=== PATIENT | female | born 1935 | race Caucasian/White ===

== ENCOUNTER 2017-05-24 14:51 | Emergency (ER) | payer MEDICARE, OTHER ==
[2017-05-24 14:59] VITALS: BP 119/93
--- NOTE | 2017-05-24 16:07 | EDM.PDOC ---
ED HPI GENERAL MEDICAL PROBLEM - General Chief Complaint: Lower Extremity Injury/Pain Stated Complaint: FALL VIA NORTH Time Seen by Provider: 05/24/17 14:55 Source of Information: Reports: Patient History Limitations: Reports: No Limitations - History of Present Illness INITIAL COMMENTS - FREE TEXT/NARRATIVE: prt arrived after she fell and twisted her ankle. She did develop increased swellin on the lateral aspect of the rt ankle. She was not able to bear weight on the leg. She has a known history of [place]. She has tightness and pain in the hip and thigh area but that is chronic. Onset: Today Duration: Hour(s): Location: Reports: Lower Extremity, Right Associated Symptoms: Reports: Other (pt normally has tighting and muscle pain) Right Ankle Pain Score (Numeric/FACES): 5 - Related Data Allergies Allergy/AdvReac Type Severity Reaction Status Date / Time cortisone Allergy Rash Verified 05/24/17 14:55 Home Meds: Home Meds Carbidopa/Levodopa [Carbidopa-Levodopa 25-100] 1 tab PO TIDMEALS 10/22/15 [ History] clonazePAM [Clonazepam] 0.5 mg PO BEDTIME 10/22/15 [History] clonazePAM [Clonazepam] 1 mg PO QAM 10/22/15 [History] Past Medical History HEENT History: Reports: Cataract, Impaired Vision Respiratory History: Reports: Pneumonia, Recurrent Other Respiratory History: pleuracy Musculoskeletal History: Reports: Fracture Neurological History: Reports: Parkinson's Other Neuro History: GBS Psychiatric History: Reports: Anxiety Hematologic History: Reports: Blood Transfusion(s) Immunologic History: Reports: Other (See Below) 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 - Past Surgical History HEENT Surgical History: Reports: Cataract Surgery GI Surgical History: Reports: Appendectomy Female Surgical History: Reports: Oophorectomy, Salpingo-Oophorectomy Social & Family History - Tobacco Use Smoking Status *Q: Never Smoker - Recreational Drug Use Recreational Drug Use: No Review of Systems - Review of Systems Review Of Systems: See Below Constitutional: Reports: No Symptoms Eyes: Reports: No Symptoms Ears: Reports: No Symptoms Nose: Reports: No Symptoms Mouth/Throat: Reports: No Symptoms Respiratory: Reports: No Symptoms Cardiovascular: Reports: No Symptoms GI/Abdominal: Reports: No Symptoms Musculoskeletal: Reports: Other ( pain in the rt ankle with swelling. ) Skin: Reports: No Symptoms Neurological: Reports: No Symptoms ED EXAM, GENERAL - Physical Exam Exam: See Below Free Text/Narrative:: Pt has swelling and discomfort in rt ankle and in the rt thigh area. Exam Limited By: No Limitations General Appearance: Alert, Anxious Ears: Normal TMs Nose: Normal Inspection Throat/Mouth: Normal Inspection Head: Atraumatic Neck: Normal Inspection Respiratory/Chest: No Respiratory Distress Cardiovascular: Regular Rate, Rhythm GI/Abdominal: Soft, Non-Tender Extremities: Other ( rt ankle was swollen laterally and tender, She is complaining of pain in the thigh muscles. She has no swelling She is not real uncomfortable when the hip was moved. will plan to xray the hip and femur just to be sure. ) Neurological: Alert, Oriented, Normal Cognition Psychiatric: Depressed Mood Course - Vital Signs Last Recorded V/S: Last Vital Signs Temp 36.6 C 05/24/17 14:52 Pulse 77 05/24/17 14:52 Resp 16 05/24/17 14:52 BP 119/93 H 05/24/17 14:52 Pulse Ox 97 05/24/17 14:52 - Re-Assessments/Exams Free Text/Narrative Re-Assessment/Exam: 05/24/17 17:57 xray of the ankle shows a possible chip fracture off of the fibula. 05/24/17 17:58 pt was having trouble lifting her rt leg once the ankle splint was applied. Her hip was checked and it did not seem real uncomfortable. If she continues to have problems will xray further. She will have a ortho appt the first part of the week. Xrays were ordered before she left but in the bussiness of the day they did not get done prior to her leaving. She does have followup appt with ortho on Thursday so will recheck then. This happened close to shift change. I did try to call but they had not gotten home yet. 05/26/17 07:11 05/26/17 07:20 Departure - Departure Time of Disposition: 16:03 Disposition: Home, Self-Care 01 Condition: Fair Clinical Impression: Muscle strain of right thigh Right ankle sprain Qualifiers: Encounter type: initial encounter - Discharge Information Instructions: Ankle Sprain, [id number] Referrals: Carlos A Tuttle MD [Primary Care Provider] - Forms: ED Department Discharge Care Plan Goals: stirup splint, pt will use her own walker, follow up with ortho-- posible small chip off the fibula. norco 5/325 11/03-- to 1 tab as needed for pain.
--- NOTE | 2017-05-25 11:39 | CR ---
Right ankle There is lateral soft tissue swelling. There is a linear bone fragment adjacent to the tip of the fi bula which may reflect an avulsion fracture. The ankle mortise appears intact. Impression: 1. Lateral soft tissue swelling without evidence of avulsion fracture of the distal fibula.
== END 2017-05-24 16:59 | disposition home or self-care (01) ==
LOC: JP.ED 14:51
DX: S76.911A Strain of unspecified muscles, fascia and tendons at thigh level, right thigh, initial encounter (principal); S93.401A Sprain of unspecified ligament of right ankle, initial encounter; G61.0 Guillain-Barre syndrome; G20 Parkinson's disease; Z79.899 Other long term (current) drug therapy; Z87.01 Personal history of pneumonia (recurrent); Z98.49 Cataract extraction status, unspecified eye; Z90.89 Acquired absence of other organs; Z90.721 Acquired absence of ovaries, unilateral; Z88.8 Allergy status to other drugs, medicaments and biological substances; X50.1XXA Overexertion from prolonged static or awkward postures, initial encounter; Y93.9 Activity, unspecified
CPT/HCPCS: 73610-26-RT; 73610-RT; 99283; 99284

== ENCOUNTER 2017-05-25 15:26 | Inpatient (IN) | payer MEDICARE, OTHER ==
[2017-05-25] MEDS ORDERED: Sodium Chloride 0.9% 10 ML Syringe FLUSH PRN (16:09)
[2017-05-25] MEDS ORDERED: Polyethylene Glycol 3350 Powder 17 GM Packet PO PRN (16:09)
[2017-05-25] MEDS ORDERED: Docusate Sodium 100 MG Cap PO PRN (16:09)
[2017-05-25] MEDS ORDERED: Magnesium Hydroxide 400 MG/5 ML Susp 30 ML Cup PO PRN (16:09)
[2017-05-25] MEDS ORDERED: Ondansetron 4 MG/2 ML SDV IV PRN (16:09)
[2017-05-25] MEDS ORDERED: HYDROmorphone 0.5 MG/0.5 ML Syringe IVPUSH PRN (16:13)
[2017-05-25] MEDS: Acetaminophen/HYDROcodone 325-5 MG Tab PO PRN ×2 (17:15→21:08)
[2017-05-25] MEDS: Lactated Ringers 1,000 ML IV SCH (17:16)
[2017-05-25] MEDS: Carbidopa/Levodopa 25-100 MG Tab PO SCH (18:26)
--- NOTE | 2017-05-25 19:09 | PCM.HP ---
H&P History of Present Illness - General Date of Service: 05/25/17 Admit Problem/Dx: Admission Diagnosis/Problem Admission Diagnosis/Problem Fracture of femur Source of Information: Patient, Family, Provider, RN Notes Reviewed History Limitations: Reports: No Limitations - History of Present Illness Initial Comments - Free Text/Narative: This patient is an 82-year-old woman who is admitted as a direct admission from the clinic with a right hip fracture. She unfortunately fell yesterday and landed on her right side, since then has had ongoing pain in her right groin. She was seen and evaluated in orthopedic clinic today by Dr. Haas, x-ray show evidence of a right femoral neck fracture. She is admitted for IV hydration and pain management as well as surgical repair the fracture tomorrow by Dr. Haas. She has had previous surgeries and denies any adverse reactions to anesthesia as well as no family history of adverse reaction to anesthesia. She has no significant history of cardiac or pulmonary disease, DVT or pulmonary embolism, or history of bleeding abnormalities. She has had no recent symptoms of chest pain or pressure, fever, or shortness of breath. right hip Pain Score (Numeric/FACES): 11 - Related Data Allergies/Adverse Reactions: Allergies Allergy/AdvReac Type Severity Reaction Status Date / Time cortisone Allergy Rash Verified 05/24/17 14:55 Home Medications: Home Meds Carbidopa/Levodopa [Carbidopa-Levodopa 25-100] 1 tab PO TIDMEALS 10/22/15 [ History] clonazePAM [Clonazepam] 0.5 mg PO BEDTIME 10/22/15 [History] clonazePAM [Clonazepam] 1 mg PO QAM 10/22/15 [History] Past Medical History HEENT History: Reports: Cataract, Impaired Vision Respiratory History: Reports: Pneumonia, Recurrent Other Respiratory History: pleuracy Musculoskeletal History: Reports: Fracture, Other (See Below) Other Musculoskeletal History: R ankle elo Neurological History: Reports: Parkinson's Other Neuro History: GBS Psychiatric History: Reports: Anxiety Hematologic History: Reports: Blood Transfusion(s) Immunologic History: Reports: Other (See Below) 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 - Infectious Disease History Infectious Disease History: Reports: Chicken Pox, Measles, Shingles - Past Surgical History HEENT Surgical History: Reports: Cataract Surgery GI Surgical History: Reports: Appendectomy Female Surgical History: Reports: Oophorectomy, Salpingo-Oophorectomy Social & Family History - Family History Family Medical History: Noncontributory - Tobacco Use Smoking Status *Q: Never Smoker - Caffeine Use Caffeine Use: Reports: Tea - Recreational Drug Use Recreational Drug Use: No H&P Review of Systems - Review of Systems: Review Of Systems: See Below General: Denies: Fever, Chills, Weakness, Diaphoresis HEENT: Reports: No Symptoms Pulmonary: Reports: No Symptoms Cardiovascular: Reports: No Symptoms Gastrointestinal: Reports: No Symptoms Genitourinary: Reports: No Symptoms Musculoskeletal: Reports: Joint Pain (Right hip). 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) Hematologic/Lymphatic: Reports: No Symptoms Immunologic: Reports: No Symptoms Exam - Exam Exam: See Below - Vital Signs Vital Signs: Last Vital Signs Temp 99.4 F 05/25/17 15:45 Pulse 85 05/25/17 15:45 Resp 18 05/25/17 15:45 BP 172/106 H 05/25/17 15:45 Pulse Ox 93 L 05/25/17 15:45 Weight: 126 lb 12.8 oz - Exam General: Alert, Oriented, Cooperative, Mild Distress HEENT: Conjunctiva Clear, Hearing Intact, Mucosa Moist & [place], Nares Patent, Posterior Pharynx Clear, Pupils Equal Neck: Supple, Trachea Midline, +2 Carotid Pulse wo Bruit Lungs: Clear to Auscultation, Normal Respiratory Effort Cardiovascular: Regular Rate, Regular Rhythm, Normal S1, Normal S2. No: Systolic Murmur, Diastolic Murmur GI/Abdominal Exam: Normal Bowel Sounds, Soft, Non-Tender, No Distention Back Exam: Normal Inspection, Full Range of Motion, NT Extremities: Normal Inspection, Normal Range of Motion, Non-Tender, No Pedal Edema, Normal Capillary Refill Skin: Warm, Dry, Intact Neurological: Cranial Nerves Intact, Strength Equal Bilateral, Normal Speech, Normal Tone, Sensation Intact. No: Focal Deficit Neuro Extensive - Mental Status: Alert, Oriented x3, Normal Mood/Affect, Normal Cognition, Memory Intact - Patient Data Lab Results Last 24 hrs: Laboratory Results - last 24 hr 05/25/17 05/25/17 05/25/17 Range/Units 16:09 16:09 16:09 WBC 9.7 (4.5-11.0) K/uL RBC 4.14 (3.30-5.50) M/uL Hgb 12.8 (12.0-15.0) g/dL Hct 38.4 (36.0-48.0) % MCV 93 (80-98) fL MCH 31 (27-31) pg MCHC 33 (32-36) % Plt Count 175 (150-400) K/uL Neut % (Auto) 82 H (36-66) % Lymph % (Auto) 7 L (24-44) % [place] % (Auto) 10 H (2-6) % Eos % (Auto) 1 L (2-4) % Baso % (Auto) 0 (0-1) % PT 12.2 H (9.5-12.0) sec INR 1.13 (0.80-1.20) APTT 27.5 (27.0-36.0) sec Sodium 140 (140-148) mmol/L Potassium 3.6 (3.6-5.2) mmol/L Chloride 103 (100-108) mmol/L Carbon Dioxide 29 (21-32) mmol/L Anion Gap 7.8 (5.0-14.0) mmol/L BUN 17 D (7-18) mg/dL Creatinine 0.9 (0.6-1.0) mg/dL Est Cr Clr Drug Dosing 44.51 mL/min Estimated GFR (MDRD) > 60 (>60) Glucose 109 H (74-106) mg/dL Calcium 8.8 (8.5-10.1) mg/dL Total Bilirubin 1.3 H D (0.2-1.0) mg/dL AST 18 (15-37) U/L ALT 12 (12-78) U/L Alkaline Phosphatase 53 (46-116) U/L Total Protein 7.5 (6.4-8.2) g/dL Albumin 3.3 L (3.4-5.0) g/dL Globulin 4.2 H (2.3-3.5) g/dL Albumin/Globulin Ratio 0.8 L (1.2-2.2) Urine Color Urine Appearance Urine pH (4.5-8.0) Ur Specific [place] (1.008-1.030) Urine Protein (NEGATIVE) mg/dL Urine Glucose (UA) (NEGATIVE) mg/dL Urine Ketones (NEGATIVE) mg/dL Urine Occult Blood (NEGATIVE) Urine Nitrite (NEGATIVE) Urine Bilirubin (NEGATIVE) Urine Urobilinogen (NORMAL) mg/dL Ur Leukocyte Esterase (NEGATIVE) Urine RBC (0-5) Urine WBC (0-5) Ur Epithelial Cells Amorphous Sediment Urine Bacteria Urine Mucus 05/25/17 Range/Units 16:09 WBC (4.5-11.0) K/uL RBC (3.30-5.50) M/uL Hgb (12.0-15.0) g/dL Hct (36.0-48.0) % MCV (80-98) fL MCH (27-31) pg MCHC (32-36) % Plt Count (150-400) K/uL Neut % (Auto) (36-66) % Lymph % (Auto) (24-44) % [place] % (Auto) (2-6) % Eos % (Auto) (2-4) % Baso % (Auto) (0-1) % PT (9.5-12.0) sec INR (0.80-1.20) APTT (27.0-36.0) sec Sodium (140-148) mmol/L Potassium (3.6-5.2) mmol/L Chloride (100-108) mmol/L Carbon Dioxide (21-32) mmol/L Anion Gap (5.0-14.0) mmol/L BUN (7-18) mg/dL Creatinine (0.6-1.0) mg/dL Est Cr Clr Drug Dosing mL/min Estimated GFR (MDRD) (>60) Glucose (74-106) mg/dL Calcium (8.5-10.1) mg/dL Total Bilirubin (0.2-1.0) mg/dL AST (15-37) U/L ALT (12-78) U/L Alkaline Phosphatase (46-116) U/L Total Protein (6.4-8.2) g/dL Albumin (3.4-5.0) g/dL Globulin (2.3-3.5) g/dL Albumin/Globulin Ratio (1.2-2.2) Urine Color Yellow Urine Appearance Clear Urine pH 7.0 (4.5-8.0) Ur Specific [place] 1.010 (1.008-1.030) Urine Protein Negative (NEGATIVE) mg/dL Urine Glucose (UA) Normal (NEGATIVE) mg/dL Urine Ketones Negative (NEGATIVE) mg/dL Urine Occult Blood Moderate (NEGATIVE) Urine Nitrite Negative (NEGATIVE) Urine Bilirubin Negative (NEGATIVE) Urine Urobilinogen Normal (NORMAL) mg/dL Ur Leukocyte Esterase Small (NEGATIVE) Urine RBC 0-5 (0-5) Urine WBC 0-5 (0-5) Ur Epithelial Cells Few Amorphous Sediment Few Urine Bacteria Rare Urine Mucus Few Result Diagrams: 05/25/17 16:09 05/25/17 16:09 *Q Meaningful Use (ADM) - VTE *Q VTE Criteria *Q: VTE Pharmacological Contraindications *Q: Patient Scheduled Surgery - VTE Risk Assess *Q Each Risk Factor Represents 1 Point: None Total Score 1 Point Risk Factors: 0 Each Risk Factor Represents 2 Points: None Total Score 2 Point Risk Factors: 0 Each Risk Factor Represents 3 Points: Age 75 Years or Greater Total Score 3 Point Risk Factors: 3 Each Risk Factor Represents 5 Points: Hip, Pelvis or Leg Fracture, Less than 1 month Total Score 5 Point Risk Factors: 5 Venous Thromboembolism Risk Factor Score *Q: 8 - Stroke *Q Stroke Criteria *Q: - AMI *Q AMI Criteria *Q: Problem List Initiated/Reviewed/Updated: Yes Orders Last 24hrs: Active Orders 24 hr Category Date Time Status Patient Status [ADT] Routine ADT 05/25/17 16:06 Active Bedrest Bedside Commode [RC] ASDIRECTED Care 05/25/17 16:06 Active EKG Documentation Completion [RC] ASDIRECTED Care 05/25/17 16:12 Active Intake and Output [RC] QSHIFT Care 05/25/17 16:08 Active Notify Provider Consults [RC] ASDIRECTED Care 05/25/17 16:13 Active Notify Provider Vital Signs [RC] ASDIRECTED Care 05/25/17 16:08 Active Overnight Pulse Oximetry [RC] Click to Edit Care 05/25/17 16:14 Active Oxygen Therapy [RC] PRN Care 05/25/17 16:06 Active Peripheral IV Care [RC] . DIRECTED Care 05/25/17 16:12 Active VTE/DVT Education [RC] Per Unit Routine Care 05/25/17 16:06 Active Vital Signs [RC] Q4H Care 05/25/17 16:06 Active Consult to Physician [CONS] Routine Cons 05/25/17 16:09 Ordered NPO After Midnight [Nothing per Oral After Midnight Diet 05/26/17 Breakfast Active Diet] [DIET] Regular Diet [DIET] Diet 05/25/17 Lunch Active Acetaminophen [Tylenol] Med 05/25/17 16:09 Active 650 mg PO Q4H PRN Acetaminophen/HYDROcodone [[place] 325-5 MG] Med 05/25/17 16:09 Active 1 tab PO Q4H PRN Carbidopa/Levodopa [Sinemet 25-100 mg] Med 05/25/17 17:00 Active 1 tab PO TIDMEALS ClonazePAM [KlonoPIN] Med 05/25/17 21:00 Active 0.5 mg PO BEDTIME ClonazePAM [KlonoPIN] Med 05/26/17 09:00 Active 1 mg PO QAM Docusate Sodium [Colace] Med 05/25/17 16:09 Active 100 mg PO BID PRN HYDROmorphone [Dilaudid] Med 05/25/17 16:13 Active 0.5 mg IVPUSH Q1H PRN Lactated Ringers [Ringers, Lactated] 1,000 ml Med 05/25/17 16:15 Active IV ASDIRECTED Magnesium Hydroxide [Milk of Magnesia] Med 05/25/17 16:09 Active 30 ml PO Q12H PRN Ondansetron [Zofran] Med 05/25/17 16:09 Active 4 mg IV Q4H PRN Polyethylene Glycol 3350 [MiraLAX] Med 05/25/17 16:09 Active 17 gm PO DAILY PRN Sodium Chloride 0.9% [Saline Flush] Med 05/25/17 16:09 Active 10 ml FLUSH ASDIRECTED PRN Peripheral IV Insertion Adult [OM.PC] Routine Oth 05/25/17 16:09 Ordered Pulse Oximetry Continuous Monitoring [OM.PC] Routine Oth 05/25/17 16:14 Ordered Pulse Oximetry Continuous Monitoring [OM.PC] Routine Oth 05/25/17 17:47 Ordered Sequential Compression Device [OM.PC] Per Unit Routine Oth 05/25/17 16:08 Ordered VTE Pharmacological Contraindications [AST] Per Unit Oth 05/25/17 16:06 Ordered Routine Weight bearing status [OM.PC] Routine Oth 05/25/17 15:40 Ordered Resuscitation Status Routine Resus Stat 05/25/17 16:06 Ordered EKG 12 Lead [EK] Stat Ther 05/25/17 16:09 Ordered Medication Orders Acetaminophen (Tylenol) 650 mg PO Q4H PRN PRN Reason: Pain (Mild 1-3)/fever Hydrocodone Bitart/Acetaminophen ([place] 325-5 Mg) 1 tab PO Q4H PRN PRN Reason: Pain (moderate 4-6) Last Admin: 05/25/17 17:15 Dose: 1 tab Carbidopa/Levodopa (Sinemet 25-100 Mg) 1 tab PO TIDMEALS EVERT Last Admin: 05/25/17 18:26 Dose: 1 tab Clonazepam (Klonopin) 0.5 mg PO BEDTIME EVERT Clonazepam (Klonopin) 1 mg PO QAM EVERT Docusate Sodium (Colace) 100 mg PO BID PRN PRN Reason: Constipation Hydromorphone HCl (Dilaudid) 0.5 mg IVPUSH Q1H PRN PRN Reason: Pain Last Admin: 05/25/17 17:16 Dose: 0.5 mg Lactated Ringer's (Ringers, Lactated) 1,000 mls @ 125 mls/hr IV ASDIRECTED EVERT Last Admin: 05/25/17 17:16 Dose: 125 mls/hr Magnesium Hydroxide (Milk Of Magnesia) 30 ml PO Q12H PRN PRN Reason: Constipation Ondansetron HCl (Zofran) 4 mg IV Q4H PRN PRN Reason: Nausea/Vomiting Polyethylene Glycol (Miralax) 17 gm PO DAILY PRN PRN Reason: Constipation Sodium Chloride (Saline Flush) 10 ml FLUSH ASDIRECTED PRN PRN Reason: Keep Vein Open Assessment/Plan Comment:: ASSESSMENT AND PLAN RIGHT FEMORAL NECK FRACTURE-associated with a fall yesterday -Cleared for surgery with general anesthesia, low risk -Management per Dr. 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 Haas -GI prophylaxis; not indicated -Cotter catheter; not indicated -Nutrition; regular diet, nothing by mouth after midnight -Nicotine dependence; not required CODE STATUS-FULL CODE ADMISSION STATUS-patient will be admitted to inpatient status, expect at least a 2 night hospital stay for evaluation and management of problems as outlined above. At the time of this admission I do not reasonably expected evaluation and management of this problem will require more than a 96 hour hospital stay. DISPOSITION-anticipate discharge to home after the hospital stay. PRIMARY CARE PROVIDER-Dr. Tuttle
[2017-05-25] MEDS: ClonazePAM 0.5 MG Tab PO SCH (21:10)
[2017-05-26] MEDS: Lactated Ringers 1,000 ML IV SCH ×2 (02:16→09:22)
[2017-05-26] MEDS ORDERED: Gentamicin 40 MG/ML 2 ML Vial ONE (08:29)
[2017-05-26] MEDS ORDERED: Bupivacaine 0.5%/EPINEPHrine 1:200,000 50 ML MDV ONE (08:30)
[2017-05-26] MEDS ORDERED: Povidone-Iodine 10% Soln 118.25 ML Bottle ONE (08:30)
[2017-05-26] MEDS: Carbidopa/Levodopa 25-100 MG Tab PO SCH ×3 (09:22→17:46)
[2017-05-26] MEDS ORDERED: fentaNYL 100 MCG/2 ML SDV ONE (09:28)
[2017-05-26] MEDS ORDERED: Propofol 200 MG/20 ML SDV ONE ×2 (09:28→14:39)
[2017-05-26] MEDS ORDERED: Midazolam 1 MG/ML 2 ML SDV ONE (09:28)
[2017-05-26] MEDS ORDERED: ePHEDrine 50 MG/ML SDV ONE (14:30)
[2017-05-26] MEDS ORDERED: ceFAZolin 1 GM Vial ONE (14:30)
[2017-05-26] MEDS ORDERED: Sodium Chloride 0.9% 10 ML ONE (14:30)
--- NOTE | 2017-05-26 14:30 | PCM.PN ---
- General Info Date of Service: 05/26/17 Functional Status: Reports: Pain Controlled - Review of Systems General: Reports: No Symptoms Pulmonary: Reports: No Symptoms Cardiovascular: Reports: No Symptoms Gastrointestinal: Reports: No Symptoms Musculoskeletal: Reports: Leg Pain, Joint Pain Systems Review Comment:: This patient has beenstable since admission yesterday, currently awaiting repair of right hip fracture. Vital signs have been good and she has remained afebrile. - Patient Data Vitals - Most Recent: Last Vital Signs Temp 99.6 F 05/26/17 10:59 Pulse 84 05/26/17 10:59 Resp 16 05/26/17 10:59 BP 149/82 H 05/26/17 10:59 Pulse Ox 98 05/26/17 12:53 Weight - Most Recent: 126 lb 12.8 oz I&O - Last 24 Hours: Intake & Output 05/25/17 05/26/17 05/26/17 22:59 06:59 14:59 Intake Total 1493 Output Total 150 Balance -150 1493 Lab Results Last 24 Hours: Laboratory Results - last 24 hr 05/25/17 05/25/17 05/25/17 Range/Units 16:09 16:09 16:09 WBC 9.7 (4.5-11.0) K/uL RBC 4.14 (3.30-5.50) M/uL Hgb 12.8 (12.0-15.0) g/dL Hct 38.4 (36.0-48.0) % MCV 93 (80-98) fL MCH 31 (27-31) pg MCHC 33 (32-36) % Plt Count 175 (150-400) K/uL Neut % (Auto) 82 H (36-66) % Lymph % (Auto) 7 L (24-44) % [place] % (Auto) 10 H (2-6) % Eos % (Auto) 1 L (2-4) % Baso % (Auto) 0 (0-1) % PT 12.2 H (9.5-12.0) sec INR 1.13 (0.80-1.20) APTT 27.5 (27.0-36.0) sec Sodium 140 (140-148) mmol/L Potassium 3.6 (3.6-5.2) mmol/L Chloride 103 (100-108) mmol/L Carbon Dioxide 29 (21-32) mmol/L Anion Gap 7.8 (5.0-14.0) mmol/L BUN 17 D (7-18) mg/dL Creatinine 0.9 (0.6-1.0) mg/dL Est Cr Clr Drug Dosing 44.51 mL/min Estimated GFR (MDRD) > 60 (>60) Glucose 109 H (74-106) mg/dL Calcium 8.8 (8.5-10.1) mg/dL Total Bilirubin 1.3 H D (0.2-1.0) mg/dL AST 18 (15-37) U/L ALT 12 (12-78) U/L Alkaline Phosphatase 53 (46-116) U/L Total Protein 7.5 (6.4-8.2) g/dL Albumin 3.3 L (3.4-5.0) g/dL Globulin 4.2 H (2.3-3.5) g/dL Albumin/Globulin Ratio 0.8 L (1.2-2.2) Urine Color Urine Appearance Urine pH (4.5-8.0) Ur Specific [place] (1.008-1.030) Urine Protein (NEGATIVE) mg/dL Urine Glucose (UA) (NEGATIVE) mg/dL Urine Ketones (NEGATIVE) mg/dL Urine Occult Blood (NEGATIVE) Urine Nitrite (NEGATIVE) Urine Bilirubin (NEGATIVE) Urine Urobilinogen (NORMAL) mg/dL Ur Leukocyte Esterase (NEGATIVE) Urine RBC (0-5) Urine WBC (0-5) Ur Epithelial Cells Amorphous Sediment Urine Bacteria Urine Mucus 05/25/17 Range/Units 16:09 WBC (4.5-11.0) K/uL RBC (3.30-5.50) M/uL Hgb (12.0-15.0) g/dL Hct (36.0-48.0) % MCV (80-98) fL MCH (27-31) pg MCHC (32-36) % Plt Count (150-400) K/uL Neut % (Auto) (36-66) % Lymph % (Auto) (24-44) % [place] % (Auto) (2-6) % Eos % (Auto) (2-4) % Baso % (Auto) (0-1) % PT (9.5-12.0) sec INR (0.80-1.20) APTT (27.0-36.0) sec Sodium (140-148) mmol/L Potassium (3.6-5.2) mmol/L Chloride (100-108) mmol/L Carbon Dioxide (21-32) mmol/L Anion Gap (5.0-14.0) mmol/L BUN (7-18) mg/dL Creatinine (0.6-1.0) mg/dL Est Cr Clr Drug Dosing mL/min Estimated GFR (MDRD) (>60) Glucose (74-106) mg/dL Calcium (8.5-10.1) mg/dL Total Bilirubin (0.2-1.0) mg/dL AST (15-37) U/L ALT (12-78) U/L Alkaline Phosphatase (46-116) U/L Total Protein (6.4-8.2) g/dL Albumin (3.4-5.0) g/dL Globulin (2.3-3.5) g/dL Albumin/Globulin Ratio (1.2-2.2) Urine Color Yellow Urine Appearance Clear Urine pH 7.0 (4.5-8.0) Ur Specific [place] 1.010 (1.008-1.030) Urine Protein Negative (NEGATIVE) mg/dL Urine Glucose (UA) Normal (NEGATIVE) mg/dL Urine Ketones Negative (NEGATIVE) mg/dL Urine Occult Blood Moderate (NEGATIVE) Urine Nitrite Negative (NEGATIVE) Urine Bilirubin Negative (NEGATIVE) Urine Urobilinogen Normal (NORMAL) mg/dL Ur Leukocyte Esterase Small (NEGATIVE) Urine RBC 0-5 (0-5) Urine WBC 0-5 (0-5) Ur Epithelial Cells Few Amorphous Sediment Few Urine Bacteria Rare Urine Mucus Few Med Orders - Current: Current Medications Acetaminophen (Tylenol) 650 mg PO Q4H PRN PRN Reason: Pain (Mild 1-3)/fever Hydrocodone Bitart/Acetaminophen ([place] 325-5 Mg) 1 tab PO Q4H PRN PRN Reason: Pain (moderate 4-6) Last Admin: 05/25/17 21:08 Dose: 1 tab Carbidopa/Levodopa (Sinemet 25-100 Mg) 1 tab PO TIDMEALS EVERT Last Admin: 05/26/17 12:48 Dose: 1 tab Clonazepam (Klonopin) 0.5 mg PO BEDTIME EVERT Last Admin: 05/25/17 21:10 Dose: 0.5 mg Clonazepam (Klonopin) 1 mg PO QAM [facility] Docusate Sodium (Colace) 100 mg PO BID PRN PRN Reason: Constipation Hydromorphone HCl (Dilaudid) 0.5 mg IVPUSH Q1H PRN PRN Reason: Pain Last Admin: 05/25/17 17:16 Dose: 0.5 mg Lactated Ringer's (Ringers, Lactated) 1,000 mls @ 125 mls/hr IV ASDIRECTED [facility] Last Admin: 05/26/17 09:22 Dose: 125 mls/hr Magnesium Hydroxide (Milk Of Magnesia) 30 ml PO Q12H PRN PRN Reason: Constipation Ondansetron HCl (Zofran) 4 mg IV Q4H PRN PRN Reason: Nausea/Vomiting Polyethylene Glycol (Miralax) 17 gm PO DAILY PRN PRN Reason: Constipation Sodium Chloride (Saline Flush) 10 ml FLUSH ASDIRECTED PRN PRN Reason: Keep Vein Open Discontinued Medications Bupivacaine HCl/Epinephrine Bitart (Marcaine 0.5%/Epinephrine 1:200,000) Confirm Administered Dose 50 ml .ROUTE .STK-MED ONE Stop: 05/26/17 08:31 Fentanyl (Sublimaze) Confirm Administered Dose 100 mcg .ROUTE .STK-MED ONE Stop: 05/26/17 09:29 Gentamicin Sulfate (Gentamicin) Confirm Administered Dose 240 mg .ROUTE .STK- MED ONE Stop: 05/26/17 08:30 Midazolam HCl (Versed 1 Mg/Ml) Confirm Administered Dose 2 mg .ROUTE .STK-MED ONE Stop: 05/26/17 09:29 Povidone Iodine (Betadine 10% Soln) Confirm Administered Dose 1 ml .ROUTE .STK- MED ONE Stop: 05/26/17 08:31 Propofol (Diprivan 20 Ml) Confirm Administered Dose 200 mg .ROUTE .STK-MED ONE Stop: 05/26/17 09:29 - Exam Quality Assessment: DVT Prophylaxis General: Alert, Oriented, Cooperative, Mild Distress Lungs: Clear to Auscultation, Normal Respiratory Effort Cardiovascular: Regular Rate, Regular Rhythm, No Murmurs GI/Abdominal Exam: Normal Bowel Sounds, Soft, Non-Tender, No Distention Extremities: No Pedal Edema, Leg Pain - Problem List Review Problem List Initiated/Reviewed/Updated: Yes - My Orders Last 24 Hours: My Active Orders 05/25/17 16:06 Patient Status [ADT] Routine Bedrest Bedside Commode [RC] ASDIRECTED Oxygen Therapy [RC] PRN VTE/DVT Education [RC] Per Unit Routine Vital Signs [RC] Q4H VTE Pharmacological Contraindications [AST] Per Unit Routine Resuscitation Status Routine 05/25/17 16:08 Intake and Output [RC] QSHIFT Notify Provider Vital Signs [RC] ASDIRECTED Sequential Compression Device [OM.PC] Per Unit Routine 05/25/17 16:09 Consult to Physician [CONS] Routine Acetaminophen [Tylenol] 650 mg PO Q4H PRN Acetaminophen/HYDROcodone [[place] 325-5 MG] 1 tab PO Q4H PRN Docusate Sodium [Colace] 100 mg PO BID PRN Magnesium Hydroxide [Milk of Magnesia] 30 ml PO Q12H PRN Ondansetron [Zofran] 4 mg IV Q4H PRN Polyethylene Glycol 3350 [MiraLAX] 17 gm PO DAILY PRN Sodium Chloride 0.9% [Saline Flush] 10 ml FLUSH ASDIRECTED PRN Peripheral IV Insertion Adult [OM.PC] Routine EKG 12 Lead [EK] Stat 05/25/17 16:12 Peripheral IV Care [RC] . DIRECTED 05/25/17 16:13 Notify Provider Consults [RC] ASDIRECTED HYDROmorphone [Dilaudid] 0.5 mg IVPUSH Q1H PRN 05/25/17 16:14 Overnight Pulse Oximetry [RC] Click to Edit Pulse Oximetry Continuous Monitoring [OM.PC] Routine 05/25/17 16:15 Lactated Ringers [Ringers, Lactated] 1,000 ml IV ASDIRECTED 05/25/17 17:00 Carbidopa/Levodopa [Sinemet 25-100 mg] 1 tab PO TIDMEALS 05/25/17 17:47 Pulse Oximetry Continuous Monitoring [OM.PC] Routine 05/25/17 21:00 ClonazePAM [KlonoPIN] 0.5 mg PO BEDTIME 05/26/17 09:00 ClonazePAM [KlonoPIN] 1 mg PO QAM - Plan Plan:: ASSESSMENT AND PLAN RIGHT FEMORAL NECK FRACTURE-associated with a fall yesterday,awaiting surgical repair by Dr. Haas today -Cleared for surgery with general anesthesia, low risk -Management per Dr. 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 Haas -GI prophylaxis; not indicated -Cotter catheter; not indicated -Nutrition; regular diet, nothing by mouth after midnight -Nicotine dependence; not required CODE STATUS-FULL CODE ADMISSION STATUS-patient will be admitted to inpatient status, expect at least a 2 night hospital stay for evaluation and management of problems as outlined above. At the time of this admission I do not reasonably expected evaluation and management of this problem will require more than a 96 hour hospital stay. DISPOSITION-anticipate discharge to home after the hospital stay. PRIMARY CARE PROVIDER-Dr. Tuttle
[2017-05-26] MEDS ORDERED: Morphine 2 MG/ML Syringe IVPUSH PRN ×2 (15:51→21:55)
[2017-05-26] MEDS ORDERED: Bisacodyl 5 MG Tab PO PRN (15:51)
[2017-05-26] MEDS ORDERED: Aluminum Hydroxide/Magnesium Hydroxide/Simethicone Susp 30 ML Cup PO PRN (15:51)
[2017-05-26] MEDS ORDERED: Naloxone 0.4 MG/ML SDV IVPUSH PRN ×2 (15:51→21:56)
[2017-05-26] MEDS ORDERED: Ketorolac 30 MG/ML SDV IVPUSH PRN ×2 (15:51)
[2017-05-26] MEDS ORDERED: traMADol 50 MG Tab PO PRN (15:51)
[2017-05-26] MEDS ORDERED: Zolpidem 5 MG Tab PO PRN (15:51)
[2017-05-26] MEDS ORDERED: Sennosides 8.6 MG Tab PO PRN (15:51)
[2017-05-26] MEDS ORDERED: Ondansetron 4 MG/2 ML SDV IVPUSH PRN ×2 (15:51→21:57)
[2017-05-26] MEDS ORDERED: diphenhydrAMINE 50 MG/ML SDV IVPUSH PRN ×2 (15:51→21:52)
[2017-05-26] MEDS ORDERED: Lactated Ringers 1,000 ML IV SCH (16:00)
[2017-05-26] MEDS: Acetaminophen/oxyCODONE 325-5 MG Tab PO PRN ×2 (17:41→22:43)
[2017-05-26] MEDS: ClonazePAM 1 MG Tab PO SCH (17:46)
[2017-05-26] MEDS: Aspirin 325 MG Tab.EC PO SCH (21:21)
[2017-05-26] MEDS: ClonazePAM 0.5 MG Tab PO SCH (21:25)
--- NOTE | 2017-05-26 21:50 | OR ---
DATE OF PROCEDURE: 05/26/2017 PREOPERATIVE DIAGNOSIS: Right femoral neck fracture, closed. POSTOPERATIVE DIAGNOSIS: Right femoral neck fracture, closed. PROCEDURE: Right hip bipolar hemiarthroplasty. CORPORATE DEVELOPMENT ASSOCIATE: MARGY Issa. ANESTHESIA: Spinal plus conscious sedation. FLUID: Lactated Ringer solution. ESTIMATED BLOOD LOSS: 200 mL. COMPLICATIONS: None. SPECIMEN: None. DISCHARGE DISPOSITION: Stable to PACU. INDICATIONS FOR THE PROCEDURE: The patient was seen yesterday in clinic. She had been to the ER previously, where she was thought to have a bad ankle sprain. She reported increased pain in her right hip. I then ordered x-rays and found a right femoral neck fracture. The remainder of the femur did not have any fracture present nor were there any fractures, dislocations on the knee. She was admitted to the hospitalist service. Preoperative optimization was performed. Risks and benefits of the procedure were explained to the patient and her and an informed consent was obtained. DETAILS OF PROCEDURE: The patient was seen preoperatively by myself and the anesthesia staff, in the hospital room. She was brought to the operative suite by the anesthesia staff where conscious sedation was administered as well as spinal anesthesia. She was placed into a left lateral recumbent position on Peg board which was well padded with an axillary roll. All extremities were found to be well padded. The right lower extremity was then prepped and draped in a sterile manner. Time-out was called identifying the correct patient, correct procedure, the correct site, and antibiotics had begun within appropriate period of time. An incision was made approximately 5 cm proximal to the greater trochanter down to the level of lesser trochanter. Bleeding was controlled with Bovie electrocautery and was carried down to the deep fascia. The fat was bluntly dissected using a lap sponge. I then used cerebellars and Gelpis for retraction. I then went through the deep fascia with a Bovie electrocautery unit and then used a Charnley retractor for retraction. I then went from the level of lesser trochanter anteriorly with Bovie then around circular incision anteriorly across the anterior aspect of the posterior capsule ending at the greater trochanter going through the gluteus minimus and inferior 1/3rd of the gluteus medius. After this had been performed, I then used sharp Hohmann's to get onto the side of the femoral neck. I then dissected down on the femoral neck down to the acetabulum, I did use a deep knife right at the acetabulum for dissection. I then externally rotated the hip and then made my femoral neck cut one fingerbreadth proximal to the lesser trochanter. I did remove several bone fragments that had been in there and then we used a corkscrew to remove the femoral head. I took a great deal of time to remove more bone fragments and then placed sharp Hohmann's at 5 and 7 o'clock inferiorly on the acetabulum for visualization and to remove more bone fragments. I also removed the foveal ligament, used Bovie electrocautery, it was quite large. We then removed those Hohmann's and then broached sequentially up to a 14. I then trialed with a -6, but could not get this in, I then made another soft tissue cut on the capsule superiorly and then exposed just the margins of the acetabulum which helped significantly. We then trialed with a -6 neck and then a -3 neck and a finally standard neck . We settled on our standard neck. We then removed all our trial components, copiously irrigated with saline and then inserted our final components, placed in the instrumentation, final component list it is the Robbin implant. We then reduced the hip. I then closed the deep capsule with two #5 Ethibond sutures. I then copiously irrigated with saline. We then closed the deep fascia after removing the Charnley with #2 Vicryl runner followed by irrigation, followed by deep subcutaneous with 0 Vicryl and followed by subcutaneous with 2-0 Vicryl, followed by skin ginette, followed by sterile dressing. The patient was then flipped back onto her hospital bed in supine position and taken to the ICU for recovery as regular recovery was closed in good condition. Perry Haas DO /[id number]
[2017-05-26] MEDS ORDERED: HYDROmorphone 0.5 MG/0.5 ML Syringe IVPUSH PRN (21:55)
[2017-05-27] MEDS: Lactated Ringers 1,000 ML IV SCH (03:05)
[2017-05-27] MEDS ORDERED: Sodium Chloride 0.9% 10 ML Syringe FLUSH SCH (09:00)
[2017-05-27] MEDS: Carbidopa/Levodopa 25-100 MG Tab PO SCH ×3 (09:02→17:04)
[2017-05-27] MEDS: Aspirin 325 MG Tab.EC PO SCH ×2 (09:05→20:52)
[2017-05-27] MEDS: ClonazePAM 1 MG Tab PO SCH (09:05)
--- NOTE | 2017-05-27 10:29 | CR ---
Pelvis 1V or 2V FINDINGS: The patient is status post hip arthroplasty. The acetabular and femoral components appear well-aligned and well-seated. IMPRESSION: Status post hip arthroplasty without evidence for complication.
[2017-05-27] MEDS ORDERED: Sodium Chloride 0.9% 100 ML IV ONE (11:39)
[2017-05-27] MEDS ORDERED: Iopamidol 755 Mg/ML 100 ML Bottle IV SCH (11:45)
[2017-05-27] MEDS: Sodium Chloride 0.9% 10 ML Syringe FLUSH PRN (12:10)
--- NOTE | 2017-05-27 13:05 | CT ---
Ang Chest HISTORY: Unresponsive episode. Hypoxia. COMPARISON: None TECHNIQUE: Intravenous contrast was administered, followed by axial imaging from the lung apices ext ending through the hemidiaphragms. 3D Coronal and/or sagittal MIP reconstructions were obtained and reviewed. Total DLP: 326. FINDINGS: The central and segmental pulmonary arteries are well-opacified. There are no filling defe cts. There is no vessel truncation. There are no findings of pulmonary embolism. There are areas of dependent atelectatic changes in the posterior lung espinoza bilaterally. There are no alveolar consol idations. There are no pleural effusions. There is no mediastinal or hilar adenopathy. Limited evaluation of the upper abdomen demonstrates a solid mass of the superior pole left kidney m easuring 3.2 cm. There is evidence of a mass of the superior pole right kidney measuring 2.1 cm. IMPRESSION: 1. No acute findings of the chest are demonstrated. There are no findings of pulmonary embolism. 2. Solid upper pole renal masses bilaterally. The findings are concerning for renal cell cancer. A C T urogram is recommended for further evaluation.
--- NOTE | 2017-05-27 14:45 | PCM.PN ---
- General Info Date of Service: 05/27/17 Functional Status: Reports: Pain Controlled, Tolerating Diet - Review of Systems General: Reports: Weakness. Denies: Fever, Chills Pulmonary: Reports: No Symptoms Cardiovascular: Reports: Lightheadedness. Denies: Chest Pain, Palpitations, Dyspnea on Exertion, Orthopnea, PND, Edema Gastrointestinal: Reports: No Symptoms Systems Review Comment:: This patient had been stable until late morning when she experienced an episode of loss of consciousness associated with some hypotension. This occurred when she was sitting in a chair, shortly after she been up for a walk and physical therapy. She was laid back in bed and pressures improved very quickly. Laboratory studies including troponin level are unremarkable, EKG shows no acute ST segment changes. There was also some transient hypoxia, CT scan of the chest shows no obvious infiltrates, pulmonary edema, or pulmonary emboli. CT scan did show bilateral renal masses, CT urogram recommended for follow-up. - Patient Data Vitals - Most Recent: Last Vital Signs Temp 99.3 F 05/27/17 12:15 Pulse 103 H 05/27/17 12:15 Resp 16 05/27/17 12:15 BP 142/78 H 05/27/17 12:15 Pulse Ox 96 05/27/17 13:30 Weight - Most Recent: 126 lb 12.817 oz I&O - Last 24 Hours: Intake & Output 05/26/17 05/27/17 05/27/17 22:59 06:59 14:59 Intake Total 1529 1111 120 Output Total 540 210 200 Balance 989 901 -80 Lab Results Last 24 Hours: Laboratory Results - last 24 hr 05/27/17 05/27/17 05/27/17 Range/Units 06:02 06:02 11:34 WBC 8.6 7.1 (4.5-11.0) K/uL RBC 3.07 L 2.95 L (3.30-5.50) M/uL Hgb 9.4 L D 9.1 L (12.0-15.0) g/dL Hct 29.7 L 28.6 L (36.0-48.0) % MCV 97 97 (80-98) fL MCH 31 31 (27-31) pg MCHC 32 32 (32-36) % Plt Count 150 136 L (150-400) K/uL Neut % (Auto) 82 H 79 H (36-66) % Lymph % (Auto) 6 L 9 L (24-44) % [place] % (Auto) 11 H 12 H (2-6) % Eos % (Auto) 1 L 1 L (2-4) % Baso % (Auto) 0 0 (0-1) % Sodium 140 (140-148) mmol/L Potassium 4.1 (3.6-5.2) mmol/L Chloride 105 (100-108) mmol/L Carbon Dioxide 34 H (21-32) mmol/L Anion Gap 5.1 (5.0-14.0) mmol/L BUN 12 (7-18) mg/dL Creatinine 0.7 (0.6-1.0) mg/dL Est Cr Clr Drug Dosing 57.23 mL/min Estimated GFR (MDRD) > 60 (>60) Glucose 146 H (74-106) mg/dL Calcium 8.0 L (8.5-10.1) mg/dL Total Bilirubin 0.7 (0.2-1.0) mg/dL AST 23 (15-37) U/L ALT 10 L (12-78) U/L Alkaline Phosphatase 41 L (46-116) U/L Troponin I (0.000-0.056) ng/mL Total Protein 5.9 L (6.4-8.2) g/dL Albumin 2.3 L (3.4-5.0) g/dL Globulin 3.6 H (2.3-3.5) g/dL Albumin/Globulin Ratio 0.6 L (1.2-2.2) 05/27/ Range/Units 11:34 WBC (4.5-11.0) K/uL RBC (3.30-5.50) M/uL Hgb (12.0-15.0) g/dL Hct (36.0-48.0) % MCV (80-98) fL MCH (27-31) pg MCHC (32-36) % Plt Count (150-400) K/uL Neut % (Auto) (36-66) % Lymph % (Auto) (24-44) % [place] % (Auto) (2-6) % Eos % (Auto) (2-4) % Baso % (Auto) (0-1) % Sodium 137 L (140-148) mmol/L Potassium 4.1 (3.6-5.2) mmol/L Chloride 103 (100-108) mmol/L Carbon Dioxide 30 (21-32) mmol/L Anion Gap 8.1 (5.0-14.0) mmol/L BUN 16 (7-18) mg/dL Creatinine 0.8 (0.6-1.0) mg/dL Est Cr Clr Drug Dosing 50.08 mL/min Estimated GFR (MDRD) > 60 (>60) Glucose 145 H (74-106) mg/dL Calcium 8.2 L (8.5-10.1) mg/dL Total Bilirubin (0.2-1.0) mg/dL AST (15-37) U/L ALT (12-78) U/L Alkaline Phosphatase (46-116) U/L Troponin I < 0.017 (0.000-0.056) ng/mL Total Protein (6.4-8.2) g/dL Albumin (3.4-5.0) g/dL Globulin (2.3-3.5) g/dL Albumin/Globulin Ratio (1.2-2.2) Med Orders - Current: Current Medications Acetaminophen (Tylenol) 650 mg PO Q4H PRN PRN Reason: Pain (Mild 1-3)/fever Al Hydroxide/Mg Hydroxide (Mag-Al Plus) 30 ml PO Q4H PRN PRN Reason: Constipation Aspirin (Ecotrin) 325 mg PO BID [facility] Last Admin: 05/27/17 09:05 Dose: 325 mg Bisacodyl (Dulcolax) 10 mg PO DAILY PRN PRN Reason: Constipation Carbidopa/Levodopa (Sinemet 25-100 Mg) 1 tab PO TIDMEALS [facility] Last Admin: 05/27/17 12:17 Dose: 1 tab Clonazepam (Klonopin) 0.5 mg PO BEDTIME [facility] Last Admin: 05/26/17 21:25 Dose: 0.5 mg Clonazepam (Klonopin) 1 mg PO QAM [facility] Last Admin: 05/27/17 09:05 Dose: 1 mg Diazepam (Valium) 5 mg IVPUSH Q6H PRN PRN Reason: Spasms Diphenhydramine HCl (Benadryl) 25 mg IVPUSH Q4H PRN PRN Reason: Itching Docusate Sodium (Colace) 100 mg PO BID PRN PRN Reason: Constipation Hydromorphone HCl (Dilaudid) 0.5 mg IVPUSH Q1H PRN PRN Reason: Pain Lactated Ringer's (Ringers, Lactated) 1,000 mls @ 100 mls/hr IV ASDIRECTED [facility] Last Admin: 05/27/17 03:05 Dose: 100 mls/hr Iopamidol (Isovue-370 (76%)) 100 ml IV . DIRECTED [facility] Last Admin: 05/27/17 12:10 Dose: 100 ml Ketorolac Tromethamine (Toradol) 15 mg IVPUSH Q8H PRN PRN Reason: Pain Stop: 05/31/17 15:52 Magnesium Hydroxide (Milk Of Magnesia) 30 ml PO Q12H PRN PRN Reason: Constipation Morphine Sulfate (Morphine) 2 mg IVPUSH Q2H PRN PRN Reason: Pain Naloxone HCl (Narcan) 0.1 mg IVPUSH ONETIME PRN PRN Reason: Oversedation Ondansetron HCl (Zofran) 8 mg IVPUSH Q4H PRN PRN Reason: Nausea/Vomiting Oxycodone/Acetaminophen (Percocet 325-5 Mg) 2 tab PO Q4H PRN PRN Reason: Pain Last Admin: 05/26/17 22:43 Dose: 2 tab Polyethylene Glycol (Miralax) 17 gm PO DAILY PRN PRN Reason: Constipation Senna (Senna) 8.6 mg PO BID PRN PRN Reason: Constipation Sodium Chloride (Saline Flush) 10 ml FLUSH ONETIME PRN PRN Reason: PER RADIOLOGY PROTOCOL Last Admin: 05/27/17 12:10 Dose: 10 ml Tramadol HCl (Ultram) 100 mg PO Q6H PRN PRN Reason: Pain Zolpidem Tartrate (Ambien) 5 mg PO BEDTIME PRN PRN Reason: Sleep Discontinued Medications Hydrocodone Bitart/Acetaminophen ([place] 325-5 Mg) 1 tab PO Q4H PRN PRN Reason: Pain (moderate 4-6) Last Admin: 05/25/17 21:08 Dose: 1 tab Bupivacaine HCl/Epinephrine Bitart (Marcaine 0.5%/Epinephrine 1:200,000) Confirm Administered Dose 50 ml .ROUTE .STK-MED ONE Stop: 05/26/17 08:31 Last Admin: 05/26/17 15:37 Dose: 30 ml Cefazolin Sodium (Ancef) Confirm Administered Dose 1 gm .ROUTE .STK-MED ONE Stop: 05/26/17 14:31 Diazepam (Valium) 5 mg IVPUSH Q6H PRN PRN Reason: Spasms Diphenhydramine HCl (Benadryl) 25 mg IVPUSH Q4H PRN PRN Reason: Itching Ephedrine Sulfate (Ephedrine Sulfate) Confirm Administered Dose 50 mg .ROUTE .STK-MED ONE Stop: 05/26/17 14:31 Fentanyl (Sublimaze) Confirm Administered Dose 100 mcg .ROUTE .STK-MED ONE Stop: 05/26/17 09:29 Gentamicin Sulfate (Gentamicin) Confirm Administered Dose 240 mg .ROUTE .STK- MED ONE Stop: 05/26/17 08:30 Last Admin: 05/26/17 14:40 Dose: 240 mg Hydromorphone HCl (Dilaudid) 0.5 mg IVPUSH Q1H PRN PRN Reason: Pain Last Admin: 05/25/17 17:16 Dose: 0.5 mg Lactated Ringer's (Ringers, Lactated) 1,000 mls @ 125 mls/hr IV ASDIRECTED [facility] Last Admin: 05/26/17 09:22 Dose: 125 mls/hr Sodium Chloride (Normal Saline) Confirm Administered Dose 10 mls @ as directed .ROUTE .STK-MED ONE Stop: 05/26/17 14:31 Lactated Ringer's (Ringers, Lactated) 1,000 mls @ 100 mls/hr IV ASDIRECTED [facility] Last Admin: 05/26/17 18:06 Dose: 100 mls/hr Sodium Chloride (Normal Saline) 100 mls @ 3 mls/sec IV ONETIME ONE Stop: 05/27/17 11:40 Last Admin: 05/27/17 12:10 Dose: 3 mls/sec Ketorolac Tromethamine (Toradol) 15 mg IVPUSH Q8H PRN PRN Reason: Pain Stop: 05/31/17 15:51 Midazolam HCl (Versed 1 Mg/Ml) Confirm Administered Dose 2 mg .ROUTE .STK-MED ONE Stop: 05/26/17 09:29 Morphine Sulfate (Morphine) 2 mg IVPUSH Q2H PRN PRN Reason: Pain Naloxone HCl (Narcan) 0.1 mg IVPUSH ONETIME PRN PRN Reason: Oversedation Ondansetron HCl (Zofran) 4 mg IV Q4H PRN PRN Reason: Nausea/Vomiting Ondansetron HCl (Zofran) 8 mg IVPUSH Q4H PRN PRN Reason: Nausea/Vomiting Povidone Iodine (Betadine 10% Soln) Confirm Administered Dose 1 ml .ROUTE .STK- MED ONE Stop: 05/26/17 08:31 Last Admin: 05/26/17 15:33 Dose: 20 ml Propofol (Diprivan 20 Ml) Confirm Administered Dose 200 mg .ROUTE .STK-MED ONE Stop: 05/26/17 09:29 Propofol (Diprivan 20 Ml) Confirm Administered Dose 200 mg .ROUTE .STK-MED ONE Stop: 05/26/17 14:40 Sodium Chloride (Saline Flush) 10 ml FLUSH ASDIRECTED PRN PRN Reason: Keep Vein Open - Exam Quality Assessment: Supplemental Oxygen, DVT Prophylaxis General: Alert, Oriented, Cooperative, No Acute Distress Lungs: Clear to Auscultation, Normal Respiratory Effort Cardiovascular: Regular Rate, Regular Rhythm, No Murmurs GI/Abdominal Exam: Normal Bowel Sounds, Soft, Non-Tender, No Distention Extremities: Normal Inspection, No Pedal Edema Skin: Warm, Dry, Intact - Problem List Review Problem List Initiated/Reviewed/Updated: Yes - My Orders Last 24 Hours: My Active Orders 05/26/17 21:55 HYDROmorphone [Dilaudid] 0.5 mg IVPUSH Q1H PRN 05/27/17 11:20 EKG 12 Lead [EK] Stat 05/27/17 11:39 Sodium Chloride 0.9% [Saline Flush] 10 ml FLUSH ONETIME PRN 05/27/17 11:45 Iopamidol [Isovue-370 (76%)] 100 ml IV . DIRECTED 05/28/17 05:00 BASIC METABOLIC PANEL,BMP [CHEM] Timed 05/28/17 08:00 Urogram [CT] Urgent - Plan Plan:: ASSESSMENT AND PLAN RIGHT FEMORAL NECK FRACTURE-associated with a fall, status post surgical repair -Management per Dr. Leandro aHas SYNCOPAL EPISODE-likely a vagal episode, evaluation unremarkable for other etiologies. -Cardiac monitoring RENAL MASSES NOTED ON CHEST CT -CT urogram in a.m. 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 Haas -GI prophylaxis; not indicated -Cotter catheter; not indicated -Nutrition; regular diet, nothing by mouth after midnight -Nicotine dependence; not required CODE STATUS-FULL CODE ADMISSION STATUS-patient will be admitted to inpatient status, expect at least a 2 night hospital stay for evaluation and management of problems as outlined above. At the time of this admission I do not reasonably expected evaluation and management of this problem will require more than a 96 hour hospital stay. DISPOSITION-anticipate discharge to home after the hospital stay. PRIMARY CARE PROVIDER-Dr. Tuttle
[2017-05-27] MEDS: Acetaminophen/oxyCODONE 325-5 MG Tab PO PRN (17:23)
[2017-05-27] MEDS: ClonazePAM 0.5 MG Tab PO SCH (20:52)
[2017-05-28] MEDS: Lactated Ringers 1,000 ML IV SCH (00:06)
--- NOTE | 2017-05-28 03:28 | PCM.PN ---
- General Info Date of Service: 05/27/17 Functional Status: Reports: Pain Controlled, Tolerating Diet, Incentive Spirometry - Patient Data Vitals - Most Recent: Last Vital Signs Temp 37.3 C 05/27/17 22:10 Pulse 115 H 05/27/17 22:10 Resp 16 05/27/17 22:10 BP 164/81 H 05/27/17 22:10 Pulse Ox 99 05/28/17 00:45 Weight - Most Recent: 126 lb 12.817 oz I&O - Last 24 Hours: Intake & Output 05/27/17 05/27/17 05/28/17 14:59 22:59 06:59 Intake Total 120 1880 Output Total 200 1000 270 Balance -80 880 -270 Lab Results Last 24 Hours: Laboratory Results - last 24 hr 05/27/17 05/27/17 05/27/17 Range/Units 06:02 06:02 11:34 WBC 8.6 7.1 (4.5-11.0) K/uL RBC 3.07 L 2.95 L (3.30-5.50) M/uL Hgb 9.4 L D 9.1 L (12.0-15.0) g/dL Hct 29.7 L 28.6 L (36.0-48.0) % MCV 97 97 (80-98) fL MCH 31 31 (27-31) pg MCHC 32 32 (32-36) % Plt Count 150 136 L (150-400) K/uL Neut % (Auto) 82 H 79 H (36-66) % Lymph % (Auto) 6 L 9 L (24-44) % [place] % (Auto) 11 H 12 H (2-6) % Eos % (Auto) 1 L 1 L (2-4) % Baso % (Auto) 0 0 (0-1) % Sodium 140 (140-148) mmol/L Potassium 4.1 (3.6-5.2) mmol/L Chloride 105 (100-108) mmol/L Carbon Dioxide 34 H (21-32) mmol/L Anion Gap 5.1 (5.0-14.0) mmol/L BUN 12 (7-18) mg/dL Creatinine 0.7 (0.6-1.0) mg/dL Est Cr Clr Drug Dosing 57.23 mL/min Estimated GFR (MDRD) > 60 (>60) Glucose 146 H (74-106) mg/dL Calcium 8.0 L (8.5-10.1) mg/dL Total Bilirubin 0.7 (0.2-1.0) mg/dL AST 23 (15-37) U/L ALT 10 L (12-78) U/L Alkaline Phosphatase 41 L (46-116) U/L Troponin I (0.000-0.056) ng/mL Total Protein 5.9 L (6.4-8.2) g/dL Albumin 2.3 L (3.4-5.0) g/dL Globulin 3.6 H (2.3-3.5) g/dL Albumin/Globulin Ratio 0.6 L (1.2-2.2) 05/27/17 Range/Units 11:34 WBC (4.5-11.0) K/uL RBC (3.30-5.50) M/uL Hgb (12.0-15.0) g/dL Hct (36.0-48.0) % MCV (80-98) fL MCH (27-31) pg MCHC (32-36) % Plt Count (150-400) K/uL Neut % (Auto) (36-66) % Lymph % (Auto) (24-44) % [place] % (Auto) (2-6) % Eos % (Auto) (2-4) % Baso % (Auto) (0-1) % Sodium 137 L (140-148) mmol/L Potassium 4.1 (3.6-5.2) mmol/L Chloride 103 (100-108) mmol/L Carbon Dioxide 30 (21-32) mmol/L Anion Gap 8.1 (5.0-14.0) mmol/L BUN 16 (7-18) mg/dL Creatinine 0.8 (0.6-1.0) mg/dL Est Cr Clr Drug Dosing 50.08 mL/min Estimated GFR (MDRD) > 60 (>60) Glucose 145 H (74-106) mg/dL Calcium 8.2 L (8.5-10.1) mg/dL Total Bilirubin (0.2-1.0) mg/dL AST (15-37) U/L ALT (12-78) U/L Alkaline Phosphatase (46-116) U/L Troponin I < 0.017 (0.000-0.056) ng/mL Total Protein (6.4-8.2) g/dL Albumin (3.4-5.0) g/dL Globulin (2.3-3.5) g/dL Albumin/Globulin Ratio (1.2-2.2) Med Orders - Current: Current Medications Acetaminophen (Tylenol) 650 mg PO Q4H PRN PRN Reason: Pain (Mild 1-3)/fever Al Hydroxide/Mg Hydroxide (Mag-Al Plus) 30 ml PO Q4H PRN PRN Reason: Constipation Aspirin (Ecotrin) 325 mg PO BID [facility] Last Admin: 05/27/17 20:52 Dose: 325 mg Bisacodyl (Dulcolax) 10 mg PO DAILY PRN PRN Reason: Constipation Carbidopa/Levodopa (Sinemet 25-100 Mg) 1 tab PO TIDMEALS [facility] Last Admin: 05/27/17 17:04 Dose: 1 tab Clonazepam (Klonopin) 0.5 mg PO BEDTIME [facility] Last Admin: 05/27/17 20:52 Dose: 0.5 mg Clonazepam (Klonopin) 1 mg PO QAM [facility] Last Admin: 05/27/17 09:05 Dose: 1 mg Diazepam (Valium) 5 mg IVPUSH Q6H PRN PRN Reason: Spasms Diphenhydramine HCl (Benadryl) 25 mg IVPUSH Q4H PRN PRN Reason: Itching Docusate Sodium (Colace) 100 mg PO BID PRN PRN Reason: Constipation Hydromorphone HCl (Dilaudid) 0.5 mg IVPUSH Q1H PRN PRN Reason: Pain Lactated Ringer's (Ringers, Lactated) 1,000 mls @ 100 mls/hr IV ASDIRECTED [facility] Last Admin: 05/28/17 00:06 Dose: 100 mls/hr Iopamidol (Isovue-370 (76%)) 100 ml IV . DIRECTED [facility] Last Admin: 05/27/17 12:10 Dose: 100 ml Ketorolac Tromethamine (Toradol) 15 mg IVPUSH Q8H PRN PRN Reason: Pain Stop: 05/31/17 15:52 Magnesium Hydroxide (Milk Of Magnesia) 30 ml PO Q12H PRN PRN Reason: Constipation Morphine Sulfate (Morphine) 2 mg IVPUSH Q2H PRN PRN Reason: Pain Naloxone HCl (Narcan) 0.1 mg IVPUSH ONETIME PRN PRN Reason: Oversedation Ondansetron HCl (Zofran) 8 mg IVPUSH Q4H PRN PRN Reason: Nausea/Vomiting Oxycodone/Acetaminophen (Percocet 325-5 Mg) 2 tab PO Q4H PRN PRN Reason: Pain Last Admin: 05/27/17 17:23 Dose: 2 tab Polyethylene Glycol (Miralax) 17 gm PO DAILY PRN PRN Reason: Constipation Senna (Senna) 8.6 mg PO BID PRN PRN Reason: Constipation Sodium Chloride (Saline Flush) 10 ml FLUSH ONETIME PRN PRN Reason: PER RADIOLOGY PROTOCOL Last Admin: 05/27/17 12:10 Dose: 10 ml Tramadol HCl (Ultram) 100 mg PO Q6H PRN PRN Reason: Pain Zolpidem Tartrate (Ambien) 5 mg PO BEDTIME PRN PRN Reason: Sleep Discontinued Medications Hydrocodone Bitart/Acetaminophen ([place] 325-5 Mg) 1 tab PO Q4H PRN PRN Reason: Pain (moderate 4-6) Last Admin: 05/25/17 21:08 Dose: 1 tab Bupivacaine HCl/Epinephrine Bitart (Marcaine 0.5%/Epinephrine 1:200,000) Confirm Administered Dose 50 ml .ROUTE .STK-MED ONE Stop: 05/26/17 08:31 Last Admin: 05/26/17 15:37 Dose: 30 ml Cefazolin Sodium (Ancef) Confirm Administered Dose 1 gm .ROUTE .STK-MED ONE Stop: 05/26/17 14:31 Diazepam (Valium) 5 mg IVPUSH Q6H PRN PRN Reason: Spasms Diphenhydramine HCl (Benadryl) 25 mg IVPUSH Q4H PRN PRN Reason: Itching Ephedrine Sulfate (Ephedrine Sulfate) Confirm Administered Dose 50 mg .ROUTE .STK-MED ONE Stop: 05/26/17 14:31 Fentanyl (Sublimaze) Confirm Administered Dose 100 mcg .ROUTE .STK-MED ONE Stop: 05/26/17 09:29 Gentamicin Sulfate (Gentamicin) Confirm Administered Dose 240 mg .ROUTE .STK- MED ONE Stop: 05/26/17 08:30 Last Admin: 05/26/17 14:40 Dose: 240 mg Hydromorphone HCl (Dilaudid) 0.5 mg IVPUSH Q1H PRN PRN Reason: Pain Last Admin: 05/25/17 17:16 Dose: 0.5 mg Lactated Ringer's (Ringers, Lactated) 1,000 mls @ 125 mls/hr IV ASDIRECTED [facility] Last Admin: 05/26/17 09:22 Dose: 125 mls/hr Sodium Chloride (Normal Saline) Confirm Administered Dose 10 mls @ as directed .ROUTE .STK-MED ONE Stop: 05/26/17 14:31 Lactated Ringer's (Ringers, Lactated) 1,000 mls @ 100 mls/hr IV ASDIRECTED [facility] Last Admin: 05/26/17 18:06 Dose: 100 mls/hr Sodium Chloride (Normal Saline) 100 mls @ 3 mls/sec IV ONETIME ONE Stop: 05/27/17 11:40 Last Admin: 05/27/17 12:10 Dose: 3 mls/sec Ketorolac Tromethamine (Toradol) 15 mg IVPUSH Q8H PRN PRN Reason: Pain Stop: 05/31/17 15:51 Midazolam HCl (Versed 1 Mg/Ml) Confirm Administered Dose 2 mg .ROUTE .STK-MED ONE Stop: 05/26/17 09:29 Morphine Sulfate (Morphine) 2 mg IVPUSH Q2H PRN PRN Reason: Pain Naloxone HCl (Narcan) 0.1 mg IVPUSH ONETIME PRN PRN Reason: Oversedation Ondansetron HCl (Zofran) 4 mg IV Q4H PRN PRN Reason: Nausea/Vomiting Ondansetron HCl (Zofran) 8 mg IVPUSH Q4H PRN PRN Reason: Nausea/Vomiting Povidone Iodine (Betadine 10% Soln) Confirm Administered Dose 1 ml .ROUTE .STK- MED ONE Stop: 05/26/17 08:31 Last Admin: 05/26/17 15:33 Dose: 20 ml Propofol (Diprivan 20 Ml) Confirm Administered Dose 200 mg .ROUTE .STK-MED ONE Stop: 05/26/17 09:29 Propofol (Diprivan 20 Ml) Confirm Administered Dose 200 mg .ROUTE .STK-MED ONE Stop: 05/26/17 14:40 Sodium Chloride (Saline Flush) 10 ml FLUSH ASDIRECTED PRN PRN Reason: Keep Vein Open - Exam General: Alert Extremities: Normal Inspection, Slow Capillary Refill Skin: Warm, Dry, Intact Wound/Incisions: Healing Well, Dressing Dry and Intact, No Drainage Neurological: No New Focal Deficit Psy/Mental Status: Alert - Problem List Review Problem List Initiated/Reviewed/Updated: Yes - My Orders Last 24 Hours: My Active Orders 05/28/17 05:15 CBC WITH AUTO DIFF [HEME] DAILY COMPREHENSIVE METABOLIC PN,CMP [CHEM] DAILY 05/29/17 05:15 CBC WITH AUTO DIFF [HEME] DAILY COMPREHENSIVE METABOLIC PN,CMP [CHEM] DAILY 05/30/17 05:15 CBC WITH AUTO DIFF [HEME] DAILY COMPREHENSIVE METABOLIC PN,CMP [CHEM] DAILY - Plan Plan:: Patient is doing well. She is status pod 1 of a left hip hemiarthorplasty. Her dressing is clean dry and intact. She is slow to move today. She will continue to work with Pt/Ot. Pain management will be monitored. She will plan on staying 2 more days.
[2017-05-28] MEDS ORDERED: Sodium Chloride 0.9% 10 ML Syringe FLUSH PRN (07:19)
[2017-05-28] MEDS ORDERED: Iopamidol 612 MG/ML 100 ML Bottle IV PRN (07:19)
[2017-05-28] MEDS: Sodium Chloride 0.9% 10 ML Syringe FLUSH PRN (07:43)
[2017-05-28] MEDS: Carbidopa/Levodopa 25-100 MG Tab PO SCH ×3 (08:10→16:35)
[2017-05-28] MEDS: Aspirin 325 MG Tab.EC PO SCH ×2 (08:10→21:03)
[2017-05-28] MEDS: ClonazePAM 1 MG Tab PO SCH (08:12)
[2017-05-28] MEDS: Iron PS Complex & Vit B12/FA Cap PO SCH ×2 (08:37→16:35)
[2017-05-28] MEDS: Acetaminophen/oxyCODONE 325-5 MG Tab PO PRN ×2 (08:37→21:03)
--- NOTE | 2017-05-28 09:13 | CT ---
CT urogram History: Evaluate solid renal lesions bilaterally seen on recent CT of the chest. Technique: Axial images were obtained from the lung bases extending through the abdomen and pelvis. Coronal images were reconstructed. The kidneys were evaluated pre-, immediate post, and delayed post contrast enhancement. Total DLP: 1863. Findings: There is a 3.4 cm round solid mass involving the superior pole left kidney. There is a 2.6 cm solid mass of the superior pole right kidney. The Hounsfield units on the precontrast CT of the left renal lesion measures 21. Following contrast administration the Hounsfield units measure 83. The mass of the superior pole right kidney demonstrates Hounsfield units of 21 on the unenhanced images. Followi ng contrast administration the units measure 78. The findings are consistent with solid enhancing bi lateral renal lesions. There is no hydronephrosis. There is no abdominal or pelvic adenopathy. The u rinary bladder is decompressed with a Cotter catheter. The liver, gallbladder, pancreas, and spleen are unremarkable. The adrenal glands are normal in size . Impression: 1. Solid enhancing bilateral renal masses. The findings are concerning for bilateral renal cell canc er. Urologic consultation recommended.
[2017-05-28] MEDS ORDERED: Furosemide 20 MG/2 ML VIAL IVPUSH ONE (09:30)
--- NOTE | 2017-05-28 11:07 | PCM.PN ---
- General Info Date of Service: 05/28/17 Functional Status: Reports: Pain Controlled, Tolerating Diet, Ambulating - Review of Systems General: Reports: Weakness. Denies: Fever, Chills Pulmonary: Reports: No Symptoms Cardiovascular: Reports: No Symptoms Gastrointestinal: Reports: No Symptoms Systems Review Comment:: This patient has remained fairly stable since syncopal episode yesterday. After evaluation this was felt to be most likely a vasovagal event with no other etiology identified. CT scan was obtained to rule out pulmonary emboli and was negative for this but did document a mass in each kidney. CT urogram was obtained this morning for further evaluation and again confirms enhancing masses very suspicious for renal cell carcinoma in each kidney. During the night she did experience some hypoxia and required increased level of supplemental oxygen. Associated with this was an elevation in heart rate. At the present time vital signs are stable and she has good oxygenation on 2 L of oxygen. Denies current symptoms of chest pain or pressure or significant shortness of breath. I did review the results of the CT scan with the patient's and daughter, patient was sedated this morning from pain medication and the results will need to be reviewed with her later. - Patient Data Vitals - Most Recent: Last Vital Signs Temp 100.3 F 05/28/17 08:00 Pulse 94 05/28/17 08:00 Resp 16 05/28/17 08:00 BP 135/69 05/28/17 08:00 Pulse Ox 95 05/28/17 08:00 Weight - Most Recent: 126 lb 12.817 oz I&O - Last 24 Hours: Intake & Output 05/27/17 05/28/17 05/28/17 22:59 06:59 14:59 Intake Total 1880 1143 Output Total 1000 405 Balance 880 738 Lab Results Last 24 Hours: Laboratory Results - last 24 hr 05/27/17 05/27/17 05/28/17 Range/Units 11:34 11:34 04:38 WBC 7.1 9.3 (4.5-11.0) K/uL RBC 2.95 L 2.67 L (3.30-5.50) M/uL Hgb 9.1 L 8.2 L (12.0-15.0) g/dL Hct 28.6 L 26.1 L (36.0-48.0) % MCV 97 98 (80-98) fL MCH 31 31 (27-31) pg MCHC 32 31 L (32-36) % Plt Count 136 L 151 (150-400) K/uL Neut % (Auto) 79 H 82 H (36-66) % Lymph % (Auto) 9 L 5 L (24-44) % [place] % (Auto) 12 H 13 H (2-6) % Eos % (Auto) 1 L 0 L (2-4) % Baso % (Auto) 0 0 (0-1) % Sodium 137 L (140-148) mmol/L Potassium 4.1 (3.6-5.2) mmol/L Chloride 103 (100-108) mmol/L Carbon Dioxide 30 (21-32) mmol/L Anion Gap 8.1 (5.0-14.0) mmol/L BUN 16 (7-18) mg/dL Creatinine 0.8 (0.6-1.0) mg/dL Est Cr Clr Drug Dosing 50.08 mL/min Estimated GFR (MDRD) > 60 (>60) Glucose 145 H (74-106) mg/dL Calcium 8.2 L (8.5-10.1) mg/dL Total Bilirubin (0.2-1.0) mg/dL AST (15-37) U/L ALT (12-78) U/L Alkaline Phosphatase (46-116) U/L Troponin I < 0.017 (0.000-0.056) ng/mL Total Protein (6.4-8.2) g/dL Albumin (3.4-5.0) g/dL Globulin (2.3-3.5) g/dL Albumin/Globulin Ratio (1.2-2.2) 05/28/ Range/Units 04:38 WBC (4.5-11.0) K/uL RBC (3.30-5.50) M/uL Hgb (12.0-15.0) g/dL Hct (36.0-48.0) % MCV (80-98) fL MCH (27-31) pg MCHC (32-36) % Plt Count (150-400) K/uL Neut % (Auto) (36-66) % Lymph % (Auto) (24-44) % [place] % (Auto) (2-6) % Eos % (Auto) (2-4) % Baso % (Auto) (0-1) % Sodium 139 L (140-148) mmol/L Potassium 4.2 (3.6-5.2) mmol/L Chloride 103 (100-108) mmol/L Carbon Dioxide 34 H (21-32) mmol/L Anion Gap 6.2 (5.0-14.0) mmol/L BUN 17 (7-18) mg/dL Creatinine 0.8 (0.6-1.0) mg/dL Est Cr Clr Drug Dosing 50.08 mL/min Estimated GFR (MDRD) > 60 (>60) Glucose 129 H (74-106) mg/dL Calcium 8.1 L (8.5-10.1) mg/dL Total Bilirubin 0.4 (0.2-1.0) mg/dL AST 18 (15-37) U/L ALT 7 L (12-78) U/L Alkaline Phosphatase 39 L (46-116) U/L Troponin I (0.000-0.056) ng/mL Total Protein 5.5 L (6.4-8.2) g/dL Albumin 2.0 L (3.4-5.0) g/dL Globulin 3.5 (2.3-3.5) g/dL Albumin/Globulin Ratio 0.6 L (1.2-2.2) Med Orders - Current: Current Medications Acetaminophen (Tylenol) 650 mg PO Q4H PRN PRN Reason: Pain (Mild 1-3)/fever Al Hydroxide/Mg Hydroxide (Mag-Al Plus) 30 ml PO Q4H PRN PRN Reason: Constipation Aspirin (Ecotrin) 325 mg PO BID [facility] Last Admin: 05/28/17 08:10 Dose: 325 mg Bisacodyl (Dulcolax) 10 mg PO DAILY PRN PRN Reason: Constipation Carbidopa/Levodopa (Sinemet 25-100 Mg) 1 tab PO TIDMEALS [facility] Last Admin: 05/28/17 08:10 Dose: 1 tab Clonazepam (Klonopin) 0.5 mg PO BEDTIME [facility] Last Admin: 05/27/17 20:52 Dose: 0.5 mg Clonazepam (Klonopin) 1 mg PO QAM [facility] Last Admin: 05/28/17 08:12 Dose: 1 mg Diazepam (Valium) 5 mg IVPUSH Q6H PRN PRN Reason: Spasms Diphenhydramine HCl (Benadryl) 25 mg IVPUSH Q4H PRN PRN Reason: Itching Docusate Sodium (Colace) 100 mg PO BID PRN PRN Reason: Constipation Hydromorphone HCl (Dilaudid) 0.5 mg IVPUSH Q1H PRN PRN Reason: Pain Ketorolac Tromethamine (Toradol) 15 mg IVPUSH Q8H PRN PRN Reason: Pain Stop: 05/31/17 15:52 Magnesium Hydroxide (Milk Of Magnesia) 30 ml PO Q12H PRN PRN Reason: Constipation Morphine Sulfate (Morphine) 2 mg IVPUSH Q2H PRN PRN Reason: Pain Naloxone HCl (Narcan) 0.1 mg IVPUSH ONETIME PRN PRN Reason: Oversedation Ondansetron HCl (Zofran) 8 mg IVPUSH Q4H PRN PRN Reason: Nausea/Vomiting Oxycodone/Acetaminophen (Percocet 325-5 Mg) 2 tab PO Q4H PRN PRN Reason: Pain Last Admin: 05/28/17 08:37 Dose: 2 tab Polyethylene Glycol (Miralax) 17 gm PO DAILY PRN PRN Reason: Constipation Polysaccharide Iron Complex (Ferrex 150 Forte) 1 cap PO BIDMEALS [facility] Last Admin: 05/28/17 08:37 Dose: 1 cap Senna (Senna) 8.6 mg PO BID PRN PRN Reason: Constipation Sodium Chloride (Saline Flush) 10 ml FLUSH ONETIME PRN PRN Reason: PER RADIOLOGY PROTOCOL Last Admin: 05/28/17 07:43 Dose: 10 ml Tramadol HCl (Ultram) 100 mg PO Q6H PRN PRN Reason: Pain Zolpidem Tartrate (Ambien) 5 mg PO BEDTIME PRN PRN Reason: Sleep Discontinued Medications Hydrocodone Bitart/Acetaminophen ([employer] 325-5 Mg) 1 tab PO Q4H PRN PRN Reason: Pain (moderate 4-6) Last Admin: 05/25/17 21:08 Dose: 1 tab Bupivacaine HCl/Epinephrine Bitart (Marcaine 0.5%/Epinephrine 1:200,000) Confirm Administered Dose 50 ml .ROUTE .STK-MED ONE Stop: 05/26/17 08:31 Last Admin: 05/26/17 15:37 Dose: 30 ml Cefazolin Sodium (Ancef) Confirm Administered Dose 1 gm .ROUTE .K-MED ONE Stop: 05/26/17 14:31 Diazepam (Valium) 5 mg IVPUSH Q6H PRN PRN Reason: Spasms Diphenhydramine HCl (Benadryl) 25 mg IVPUSH Q4H PRN PRN Reason: Itching Ephedrine Sulfate (Ephedrine Sulfate) Confirm Administered Dose 50 mg .ROUTE .ST-MED ONE Stop: 05/26/17 14:31 Fentanyl (Sublimaze) Confirm Administered Dose 100 mcg .ROUTE .[facility]-MED ONE Stop: 05/26/17 09:29 Furosemide (Lasix) 20 mg IVPUSH NOW ONE Stop: 05/28/17 09:31 Last Admin: 05/28/17 09:54 Dose: 20 mg Gentamicin Sulfate (Gentamicin) Confirm Administered Dose 240 mg .ROUTE .[facility] ONE Stop: 05/26/17 08:30 Last Admin: 05/26/17 14:40 Dose: 240 mg Hydromorphone HCl (Dilaudid) 0.5 mg IVPUSH Q1H PRN PRN Reason: Pain Last Admin: 05/25/17 17:16 Dose: 0.5 mg Lactated Ringer's (Ringers, Lactated) 1,000 mls @ 125 mls/hr IV ASDIRECTED [facility] Last Admin: 05/26/17 09:22 Dose: 125 mls/hr Sodium Chloride (Normal Saline) Confirm Administered Dose 10 mls @ as directed .ROUTE .[facility] ONE Stop: 05/26/17 14:31 Lactated Ringer's (Ringers, Lactated) 1,000 mls @ 100 mls/hr IV ASDIRECTED [facility] Last Admin: 05/26/17 18:06 Dose: 100 mls/hr Lactated Ringer's (Ringers, Lactated) 1,000 mls @ 100 mls/hr IV ASDIRECTED [facility] Last Admin: 05/28/17 00:06 Dose: 100 mls/hr Sodium Chloride (Normal Saline) 100 mls @ 3 mls/sec IV ONETIME ONE Stop: 05/27/17 11:40 Last Admin: 05/27/17 12:10 Dose: 3 mls/sec Sodium Chloride (Normal Saline) 70 mls @ 3 mls/sec IV ONETIME ONE Stop: 05/28/17 07:20 Last Admin: 05/28/17 07:43 Dose: 3 mls/sec Iopamidol (Isovue-370 (76%)) 100 ml IV . DIRECTED [facility] Last Admin: 05/27/17 12:10 Dose: 100 ml Iopamidol (Isovue-300 (61%)) 86 ml IV . DIRECTED PRN PRN Reason: RADIOLOGY EXAM Stop: 05/28/17 07:20 Last Admin: 05/28/17 07:43 Dose: 100 ml Ketorolac Tromethamine (Toradol) 15 mg IVPUSH Q8H PRN PRN Reason: Pain Stop: 05/31/17 15:51 Midazolam HCl (Versed 1 Mg/Ml) Confirm Administered Dose 2 mg .ROUTE .STK-MED ONE Stop: 05/26/17 09:29 Morphine Sulfate (Morphine) 2 mg IVPUSH Q2H PRN PRN Reason: Pain Naloxone HCl (Narcan) 0.1 mg IVPUSH ONETIME PRN PRN Reason: Oversedation Ondansetron HCl (Zofran) 4 mg IV Q4H PRN PRN Reason: Nausea/Vomiting Ondansetron HCl (Zofran) 8 mg IVPUSH Q4H PRN PRN Reason: Nausea/Vomiting Povidone Iodine (Betadine 10% Soln) Confirm Administered Dose 1 ml .ROUTE .STK- MED ONE Stop: 05/26/17 08:31 Last Admin: 05/26/17 15:33 Dose: 20 ml Propofol (Diprivan 20 Ml) Confirm Administered Dose 200 mg .ROUTE .STK-MED ONE Stop: 05/26/17 09:29 Propofol (Diprivan 20 Ml) Confirm Administered Dose 200 mg .ROUTE .STK-MED ONE Stop: 05/26/17 14:40 Sodium Chloride (Saline Flush) 10 ml FLUSH ASDIRECTED PRN PRN Reason: Keep Vein Open Sodium Chloride (Saline Flush) 10 ml FLUSH ONETIME PRN PRN Reason: PER RADIOLOGY PROTOCOL Stop: 05/28/17 08:00 - Exam Quality Assessment: Supplemental Oxygen, Urine Catheter, DVT Prophylaxis General: Sedated, Lethargic Lungs: Clear to Auscultation, Normal Respiratory Effort Cardiovascular: Regular Rate, Regular Rhythm, No Murmurs GI/Abdominal Exam: Normal Bowel Sounds, Soft, Non-Tender, No Distention, Pelvis Stable Extremities: Normal Inspection, No Pedal Edema Skin: Warm, Dry, Intact - Problem List Review Problem List Initiated/Reviewed/Updated: Yes - My Orders Last 24 Hours: My Active Orders 05/27/17 11:20 EKG 12 Lead [EK] Stat 05/27/17 11:39 Sodium Chloride 0.9% [Saline Flush] 10 ml FLUSH ONETIME PRN 05/27/17 14:45 Cardiac Monitoring [RC] .As Directed 05/28/17 08:15 Iron PS Complex & Vit B12/FA [Ferrex 150 Forte] 1 cap PO BIDMEALS 05/28/17 08:47 Convert IV to Saline Lock [OM.PC] Routine 05/28/17 09:49 Echo Comp wo Cont [US] Urgent - Plan Plan:: ASSESSMENT AND PLAN RIGHT FEMORAL NECK FRACTURE-associated with a fall, status post surgical repair -Management per Dr. Leandro Haas SYNCOPAL EPISODE-likely a vagal episode, evaluation unremarkable for other etiologies. No further episodes of lightheadedness or syncope since yesterday. -Echocardiogram to assess left ventricular function and valvular function -Cardiac monitoring BILATERAL RENAL MASSES-CT urogram obtained this morning consistent with bilateral renal cell carcinoma. On CT scan of the chest as well as CT of the abdomen there is no evidence of metastatic disease or lymph node enlargement. -Will need follow-up with urology after she has recovered from hip fracture TRANSIENT HYPOXIA-during the night required increased level of supplemental oxygen with associated sinus tachycardia. She is stabilized since then and has good saturations on 2 L of oxygen via nasal cannula. Likely that this is secondary to fluid overload related to fluid infusion during and following her hip surgery. -Saline lock IV -Lasix 20 mg IV this morning -Reassess in a.m. 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 Haas -GI prophylaxis; not indicated -Cotter catheter; not indicated -Nutrition; regular diet, nothing by mouth after midnight -Nicotine dependence; not required CODE STATUS-FULL CODE ADMISSION STATUS-patient will be admitted to inpatient status, expect at least a 2 night hospital stay for evaluation and management of problems as outlined above. At the time of this admission I do not reasonably expected evaluation and management of this problem will require more than a 96 hour hospital stay. DISPOSITION-anticipate discharge to home after the hospital stay. PRIMARY CARE PROVIDER-Dr. Tuttle
--- NOTE | 2017-05-28 14:28 | PCM.PN ---
- General Info Date of Service: 05/28/17 Admission Dx/Problem (Free Text): Blair is doing well today. She states that she has some pain but was concerned regarding her pain medication. She states that she was concerned regarding the wrong color of medication. Patient states that she is having no issues at this time. She states that she sometimes get short of breath. She is otherwise doing very well. She notes small amount of hip pain but otherwise has no concerns. Functional Status: Reports: Pain Controlled, Tolerating Diet - Patient Data Vitals - Most Recent: Last Vital Signs Temp 37.4 C 05/28/17 11:56 Pulse 91 05/28/17 11:56 Resp 16 05/28/17 11:56 BP 98/57 L 05/28/17 11:56 Pulse Ox 89 L 05/28/17 12:58 Weight - Most Recent: 126 lb 12.817 oz I&O - Last 24 Hours: Intake & Output 05/27/17 05/28/17 05/28/17 22:59 06:59 14:59 Intake Total 1880 1143 Output Total 1000 405 Balance 880 738 Lab Results Last 24 Hours: Laboratory Results - last 24 hr 05/28/17 05/28/17 Range/Units 04:38 04:38 WBC 9.3 (4.5-11.0) K/uL RBC 2.67 L (3.30-5.50) M/uL Hgb 8.2 L (12.0-15.0) g/dL Hct 26.1 L (36.0-48.0) % MCV 98 (80-98) fL MCH 31 (27-31) pg MCHC 31 L (32-36) % Plt Count 151 (150-400) K/uL Neut % (Auto) 82 H (36-66) % Lymph % (Auto) 5 L (24-44) % [place] % (Auto) 13 H (2-6) % Eos % (Auto) 0 L (2-4) % Baso % (Auto) 0 (0-1) % Sodium 139 L (140-148) mmol/L Potassium 4.2 (3.6-5.2) mmol/L Chloride 103 (100-108) mmol/L Carbon Dioxide 34 H (21-32) mmol/L Anion Gap 6.2 (5.0-14.0) mmol/L BUN 17 (7-18) mg/dL Creatinine 0.8 (0.6-1.0) mg/dL Est Cr Clr Drug Dosing 50.08 mL/min Estimated GFR (MDRD) > 60 (>60) Glucose 129 H (74-106) mg/dL Calcium 8.1 L (8.5-10.1) mg/dL Total Bilirubin 0.4 (0.2-1.0) mg/dL AST 18 (15-37) U/L ALT 7 L (12-78) U/L Alkaline Phosphatase 39 L (46-116) U/L Total Protein 5.5 L (6.4-8.2) g/dL Albumin 2.0 L (3.4-5.0) g/dL Globulin 3.5 (2.3-3.5) g/dL Albumin/Globulin Ratio 0.6 L (1.2-2.2) Med Orders - Current: Current Medications Acetaminophen (Tylenol) 650 mg PO Q4H PRN PRN Reason: Pain (Mild 1-3)/fever Al Hydroxide/Mg Hydroxide (Mag-Al Plus) 30 ml PO Q4H PRN PRN Reason: Constipation Aspirin (Ecotrin) 325 mg PO BID [facility] Last Admin: 05/28/17 08:10 Dose: 325 mg Bisacodyl (Dulcolax) 10 mg PO DAILY PRN PRN Reason: Constipation Carbidopa/Levodopa (Sinemet 25-100 Mg) 1 tab PO TIDMEALS [facility] Last Admin: 05/28/17 12:30 Dose: 1 tab Clonazepam (Klonopin) 0.5 mg PO BEDTIME [facility] Last Admin: 05/27/17 20:52 Dose: 0.5 mg Clonazepam (Klonopin) 1 mg PO QAM [facility] Last Admin: 05/28/17 08:12 Dose: 1 mg Diazepam (Valium) 5 mg IVPUSH Q6H PRN PRN Reason: Spasms Diphenhydramine HCl (Benadryl) 25 mg IVPUSH Q4H PRN PRN Reason: Itching Docusate Sodium (Colace) 100 mg PO BID PRN PRN Reason: Constipation Hydromorphone HCl (Dilaudid) 0.5 mg IVPUSH Q1H PRN PRN Reason: Pain Ketorolac Tromethamine (Toradol) 15 mg IVPUSH Q8H PRN PRN Reason: Pain Stop: 05/31/17 15:52 Magnesium Hydroxide (Milk Of Magnesia) 30 ml PO Q12H PRN PRN Reason: Constipation Morphine Sulfate (Morphine) 2 mg IVPUSH Q2H PRN PRN Reason: Pain Naloxone HCl (Narcan) 0.1 mg IVPUSH ONETIME PRN PRN Reason: Oversedation Ondansetron HCl (Zofran) 8 mg IVPUSH Q4H PRN PRN Reason: Nausea/Vomiting Oxycodone/Acetaminophen (Percocet 325-5 Mg) 2 tab PO Q4H PRN PRN Reason: Pain Last Admin: 05/28/17 08:37 Dose: 2 tab Polyethylene Glycol (Miralax) 17 gm PO DAILY PRN PRN Reason: Constipation Polysaccharide Iron Complex (Ferrex 150 Forte) 1 cap PO BIDMEALS [facility] Last Admin: 05/28/17 08:37 Dose: 1 cap Senna (Senna) 8.6 mg PO BID PRN PRN Reason: Constipation Sodium Chloride (Saline Flush) 10 ml FLUSH ONETIME PRN PRN Reason: PER RADIOLOGY PROTOCOL Last Admin: 05/28/17 07:43 Dose: 10 ml Tramadol HCl (Ultram) 100 mg PO Q6H PRN PRN Reason: Pain Zolpidem Tartrate (Ambien) 5 mg PO BEDTIME PRN PRN Reason: Sleep Discontinued Medications Hydrocodone Bitart/Acetaminophen ([place] 325-5 Mg) 1 tab PO Q4H PRN PRN Reason: Pain (moderate 4-6) Last Admin: 05/25/17 21:08 Dose: 1 tab Bupivacaine HCl/Epinephrine Bitart ([place] 0.5%/Epinephrine 1:200,000) Confirm Administered Dose 50 ml .ROUTE .STK-MED ONE Stop: 05/26/17 08:31 Last Admin: 05/26/17 15:37 Dose: 30 ml Cefazolin Sodium (Ancef) Confirm Administered Dose 1 gm .ROUTE .STK-MED ONE Stop: 05/26/17 14:31 Diazepam (Valium) 5 mg IVPUSH Q6H PRN PRN Reason: Spasms Diphenhydramine HCl (Benadryl) 25 mg IVPUSH Q4H PRN PRN Reason: Itching Ephedrine Sulfate (Ephedrine Sulfate) Confirm Administered Dose 50 mg .ROUTE .[facility] ONE Stop: 05/26/17 14:31 Fentanyl (Sublimaze) Confirm Administered Dose 100 mcg .ROUTE .[facility] ONE Stop: 05/26/17 09:29 Furosemide (Lasix) 20 mg IVPUSH NOW ONE Stop: 05/28/17 09:31 Last Admin: 05/28/17 09:54 Dose: 20 mg Gentamicin Sulfate (Gentamicin) Confirm Administered Dose 240 mg .ROUTE .[facility] ONE Stop: 05/26/17 08:30 Last Admin: 05/26/17 14:40 Dose: 240 mg Hydromorphone HCl (Dilaudid) 0.5 mg IVPUSH Q1H PRN PRN Reason: Pain Last Admin: 05/25/17 17:16 Dose: 0.5 mg Lactated Ringer's (Ringers, Lactated) 1,000 mls @ 125 mls/hr IV ASDIRECTED [facility] Last Admin: 05/26/17 09:22 Dose: 125 mls/hr Sodium Chloride (Normal Saline) Confirm Administered Dose 10 mls @ as directed .ROUTE .[facility] ONE Stop: 05/26/17 14:31 Lactated Ringer's (Ringers, Lactated) 1,000 mls @ 100 mls/hr IV ASDIRECTED [facility] Last Admin: 05/26/17 18:06 Dose: 100 mls/hr Lactated Ringer's (Ringers, Lactated) 1,000 mls @ 100 mls/hr IV ASDIRECTED [facility] Last Admin: 05/28/17 00:06 Dose: 100 mls/hr Sodium Chloride (Normal Saline) 100 mls @ 3 mls/sec IV ONETIME ONE Stop: 05/27/17 11:40 Last Admin: 05/27/17 12:10 Dose: 3 mls/sec Sodium Chloride (Normal Saline) 70 mls @ 3 mls/sec IV ONETIME ONE Stop: 05/28/17 07:20 Last Admin: 05/28/17 07:43 Dose: 3 mls/sec Iopamidol (Isovue-370 (76%)) 100 ml IV . DIRECTED [facility] Last Admin: 05/27/17 12:10 Dose: 100 ml Iopamidol (Isovue-300 (61%)) 86 ml IV . DIRECTED PRN PRN Reason: RADIOLOGY EXAM Stop: 05/28/17 07:20 Last Admin: 05/28/17 07:43 Dose: 100 ml Ketorolac Tromethamine (Toradol) 15 mg IVPUSH Q8H PRN PRN Reason: Pain Stop: 05/31/17 15:51 Midazolam HCl (Versed 1 Mg/Ml) Confirm Administered Dose 2 mg .ROUTE .STK-MED ONE Stop: 05/26/17 09:29 Morphine Sulfate (Morphine) 2 mg IVPUSH Q2H PRN PRN Reason: Pain Naloxone HCl (Narcan) 0.1 mg IVPUSH ONETIME PRN PRN Reason: Oversedation Ondansetron HCl (Zofran) 4 mg IV Q4H PRN PRN Reason: Nausea/Vomiting Ondansetron HCl (Zofran) 8 mg IVPUSH Q4H PRN PRN Reason: Nausea/Vomiting Povidone Iodine (Betadine 10% Soln) Confirm Administered Dose 1 ml .ROUTE .STK- MED ONE Stop: 05/26/17 08:31 Last Admin: 05/26/17 15:33 Dose: 20 ml Propofol (Diprivan 20 Ml) Confirm Administered Dose 200 mg .ROUTE .STK-MED ONE Stop: 05/26/17 09:29 Propofol (Diprivan 20 Ml) Confirm Administered Dose 200 mg .ROUTE .STK-MED ONE Stop: 05/26/17 14:40 Sodium Chloride (Saline Flush) 10 ml FLUSH ASDIRECTED PRN PRN Reason: Keep Vein Open Sodium Chloride (Saline Flush) 10 ml FLUSH ONETIME PRN PRN Reason: PER RADIOLOGY PROTOCOL Stop: 05/28/17 08:00 - Exam Extremities: Normal Inspection, No Pedal Edema, Normal Capillary Refill Peripheral Pulses: 2+: Dorsalis Pedis (L), Dorsalis Pedis (R) Skin: Warm, Dry, Intact Wound/Incisions: Healing Well, Dressing Dry and Intact Neurological: No New Focal Deficit Psy/Mental Status: Alert - Problem List Review Problem List Initiated/Reviewed/Updated: Yes - My Orders Last 24 Hours: My Active Orders 05/29/17 05:15 CBC WITH AUTO DIFF [HEME] DAILY COMPREHENSIVE METABOLIC PN,CMP [CHEM] DAILY 05/30/17 05:15 CBC WITH AUTO DIFF [HEME] DAILY COMPREHENSIVE METABOLIC PN,CMP [CHEM] DAILY - Plan Plan:: ASSESSMENT AND PLAN RIGHT FEMORAL NECK FRACTURE-patient is status post op day 2 of hemiarthroplasty. She is doing very well. We have no concerns at this time. Seen is clean dry and intact. Incision is healing well. Patient continues to work with PT OT for strengthening. She did get up in a chair today but still struggles to ambulate without difficulties. Patient's hemoglobin is slightly low and will start iron today. I also want her continue to take milk of magnesia and o'clock suppositories as needed.
[2017-05-28] MEDS: ClonazePAM 0.5 MG Tab PO SCH (21:04)
[2017-05-29] MEDS: Acetaminophen/oxyCODONE 325-5 MG Tab PO PRN (02:25)
[2017-05-29] MEDS: Iron PS Complex & Vit B12/FA Cap PO SCH ×2 (07:59→18:17)
[2017-05-29] MEDS: Carbidopa/Levodopa 25-100 MG Tab PO SCH ×3 (07:59→18:17)
[2017-05-29] MEDS: Aspirin 325 MG Tab.EC PO SCH ×2 (08:00→21:19)
[2017-05-29] MEDS: ClonazePAM 1 MG Tab PO SCH (08:04)
[2017-05-29] MEDS ORDERED: Potassium Chloride 20 MEQ Tab.ER PO ONE (10:00)
--- NOTE | 2017-05-29 15:25 | PCM.PN ---
- General Info Date of Service: 05/29/17 Functional Status: Reports: Pain Controlled - Review of Systems General: Reports: Weakness. Denies: Fever, Chills Pulmonary: Reports: No Symptoms Cardiovascular: Reports: No Symptoms Gastrointestinal: Reports: No Symptoms Systems Review Comment:: This patient has remained very weak, vital signs have been stable and she has remained afebrile. On this morning labs hemoglobin had dropped close to 7, she is been transfused one unit of red blood cells today and current hemoglobin is 8.6. Take has remained marginal and activity has been minimal. - Patient Data Vitals - Most Recent: Last Vital Signs Temp 99.0 F 05/29/17 14:50 Pulse 85 05/29/17 14:50 Resp 16 05/29/17 14:50 BP 118/65 05/29/17 14:50 Pulse Ox 100 05/29/17 14:50 Weight - Most Recent: 126 lb 12.817 oz I&O - Last 24 Hours: Intake & Output 05/29/17 05/29/17 05/29/17 06:59 14:59 22:59 Intake Total 500 399 Output Total 725 335 Balance -225 64 Lab Results Last 24 Hours: Laboratory Results - last 24 hr 05/29/17 05/29/17 05/29/17 Range/Units 04:14 04:14 09:06 WBC 7.2 (4.5-11.0) K/uL RBC 2.44 L (3.30-5.50) M/uL Hgb 7.4 L (12.0-15.0) g/dL Hct 23.4 L (36.0-48.0) % MCV 96 (80-98) fL MCH 30 (27-31) pg MCHC 32 (32-36) % Plt Count 166 (150-400) K/uL Neut % (Auto) 70 H (36-66) % Lymph % (Auto) 14 L (24-44) % [place] % (Auto) 12 H (2-6) % Eos % (Auto) 4 (2-4) % Baso % (Auto) 0 (0-1) % Sodium 137 L (140-148) mmol/L Potassium 3.4 L (3.6-5.2) mmol/L Chloride 99 L (100-108) mmol/L Carbon Dioxide 35 H (21-32) mmol/L Anion Gap 6.4 (5.0-14.0) mmol/L BUN 16 (7-18) mg/dL Creatinine 0.7 (0.6-1.0) mg/dL Est Cr Clr Drug Dosing 57.23 mL/min Estimated GFR (MDRD) > 60 (>60) Glucose 97 (74-106) mg/dL Calcium 8.2 L (8.5-10.1) mg/dL Total Bilirubin 0.5 (0.2-1.0) mg/dL AST 20 (15-37) U/L ALT 13 D (12-78) U/L Alkaline Phosphatase 38 L (46-116) U/L Total Protein 5.5 L (6.4-8.2) g/dL Albumin 1.8 L (3.4-5.0) g/dL Globulin 3.7 H (2.3-3.5) g/dL Albumin/Globulin Ratio 0.5 L (1.2-2.2) Blood Type A POSITIVE Gel Antibody Screen Negative Crossmatch See Detail 05/29/17 Range/Units 14:10 WBC (4.5-11.0) K/uL RBC (3.30-5.50) M/uL Hgb 8.6 L (12.0-15.0) g/dL Hct (36.0-48.0) % MCV (80-98) fL MCH (27-31) pg MCHC (32-36) % Plt Count (150-400) K/uL Neut % (Auto) (36-66) % Lymph % (Auto) (24-44) % [place] % (Auto) (2-6) % Eos % (Auto) (2-4) % Baso % (Auto) (0-1) % Sodium (140-148) mmol/L Potassium (3.6-5.2) mmol/L Chloride (100-108) mmol/L Carbon Dioxide (21-32) mmol/L Anion Gap (5.0-14.0) mmol/L BUN (7-18) mg/dL Creatinine (0.6-1.0) mg/dL Est Cr Clr Drug Dosing mL/min Estimated GFR (MDRD) (>60) Glucose (74-106) mg/dL Calcium (8.5-10.1) mg/dL Total Bilirubin (0.2-1.0) mg/dL AST (15-37) U/L ALT (12-78) U/L Alkaline Phosphatase (46-116) U/L Total Protein (6.4-8.2) g/dL Albumin (3.4-5.0) g/dL Globulin (2.3-3.5) g/dL Albumin/Globulin Ratio (1.2-2.2) Blood Type Gel Antibody Screen Crossmatch Med Orders - Current: Current Medications Acetaminophen (Tylenol) 650 mg PO Q4H PRN PRN Reason: Pain (Mild 1-3)/fever Al Hydroxide/Mg Hydroxide (Mag-Al Plus) 30 ml PO Q4H PRN PRN Reason: Constipation Aspirin (Ecotrin) 325 mg PO BID [facility] Last Admin: 05/29/17 08:00 Dose: 325 mg Bisacodyl (Dulcolax) 10 mg PO DAILY PRN PRN Reason: Constipation Carbidopa/Levodopa (Sinemet 25-100 Mg) 1 tab PO TIDMEALS [facility] Last Admin: 05/29/17 13:15 Dose: 1 tab Clonazepam (Klonopin) 0.5 mg PO BEDTIME [facility] Last Admin: 05/28/17 21:04 Dose: 0.5 mg Clonazepam (Klonopin) 1 mg PO QAM [facility] Last Admin: 05/29/17 08:04 Dose: 1 mg Diazepam (Valium) 5 mg IVPUSH Q6H PRN PRN Reason: Spasms Diphenhydramine HCl (Benadryl) 25 mg IVPUSH Q4H PRN PRN Reason: Itching Docusate Sodium (Colace) 100 mg PO BID PRN PRN Reason: Constipation Furosemide (Lasix) 20 mg IVPUSH NOW ONE Stop: 05/30/17 08:01 Hydromorphone HCl (Dilaudid) 0.5 mg IVPUSH Q1H PRN PRN Reason: Pain Ketorolac Tromethamine (Toradol) 15 mg IVPUSH Q8H PRN PRN Reason: Pain Stop: 05/31/17 15:52 Magnesium Hydroxide (Milk Of Magnesia) 30 ml PO Q12H PRN PRN Reason: Constipation Morphine Sulfate (Morphine) 2 mg IVPUSH Q2H PRN PRN Reason: Pain Naloxone HCl (Narcan) 0.1 mg IVPUSH ONETIME PRN PRN Reason: Oversedation Ondansetron HCl (Zofran) 8 mg IVPUSH Q4H PRN PRN Reason: Nausea/Vomiting Oxycodone/Acetaminophen (Percocet 325-5 Mg) 2 tab PO Q4H PRN PRN Reason: Pain Last Admin: 05/29/17 02:25 Dose: 2 tab Polyethylene Glycol (Miralax) 17 gm PO DAILY PRN PRN Reason: Constipation Polysaccharide Iron Complex (Ferrex 150 Forte) 1 cap PO BIDMEALS [facility]ERT Last Admin: 05/29/17 07:59 Dose: 1 cap Senna (Senna) 8.6 mg PO BID PRN PRN Reason: Constipation Sodium Chloride (Saline Flush) 10 ml FLUSH ONETIME PRN PRN Reason: PER RADIOLOGY PROTOCOL Last Admin: 05/28/17 07:43 Dose: 10 ml Tramadol HCl (Ultram) 100 mg PO Q6H PRN PRN Reason: Pain Zolpidem Tartrate (Ambien) 5 mg PO BEDTIME PRN PRN Reason: Sleep Discontinued Medications Hydrocodone Bitart/Acetaminophen ([place] 325-5 Mg) 1 tab PO Q4H PRN PRN Reason: Pain (moderate 4-6) Last Admin: 05/25/17 21:08 Dose: 1 tab Bupivacaine HCl/Epinephrine Bitart ([place] 0.5%/Epinephrine 1:200,000) Confirm Administered Dose 50 ml .ROUTE .STK-MED ONE Stop: 05/26/17 08:31 Last Admin: 05/26/17 15:37 Dose: 30 ml Cefazolin Sodium (Ancef) Confirm Administered Dose 1 gm .ROUTE .STK-MED ONE Stop: 05/26/17 14:31 Diazepam (Valium) 5 mg IVPUSH Q6H PRN PRN Reason: Spasms Diphenhydramine HCl (Benadryl) 25 mg IVPUSH Q4H PRN PRN Reason: Itching Ephedrine Sulfate (Ephedrine Sulfate) Confirm Administered Dose 50 mg .ROUTE .STK-MED ONE Stop: 05/26/17 14:31 Fentanyl (Sublimaze) Confirm Administered Dose 100 mcg .ROUTE .STK-MED ONE Stop: 05/26/17 09:29 Furosemide (Lasix) 20 mg IVPUSH NOW ONE Stop: 05/28/17 09:31 Last Admin: 05/28/17 09:54 Dose: 20 mg Gentamicin Sulfate (Gentamicin) Confirm Administered Dose 240 mg .ROUTE .[facility] ONE Stop: 05/26/17 08:30 Last Admin: 05/26/17 14:40 Dose: 240 mg Hydromorphone HCl (Dilaudid) 0.5 mg IVPUSH Q1H PRN PRN Reason: Pain Last Admin: 05/25/17 17:16 Dose: 0.5 mg Lactated Ringer's (Ringers, Lactated) 1,000 mls @ 125 mls/hr IV ASDIRECTED [facility] Last Admin: 05/26/17 09:22 Dose: 125 mls/hr Sodium Chloride (Normal Saline) Confirm Administered Dose 10 mls @ as directed .ROUTE .[facility] ONE Stop: 05/26/17 14:31 Lactated Ringer's (Ringers, Lactated) 1,000 mls @ 100 mls/hr IV ASDIRECTED [facility] Last Admin: 05/26/17 18:06 Dose: 100 mls/hr Lactated Ringer's (Ringers, Lactated) 1,000 mls @ 100 mls/hr IV ASDIRECTED [facility] Last Admin: 05/28/17 00:06 Dose: 100 mls/hr Sodium Chloride (Normal Saline) 100 mls @ 3 mls/sec IV ONETIME ONE Stop: 05/27/17 11:40 Last Admin: 05/27/17 12:10 Dose: 3 mls/sec Sodium Chloride (Normal Saline) 70 mls @ 3 mls/sec IV ONETIME ONE Stop: 05/28/17 07:20 Last Admin: 05/28/17 07:43 Dose: 3 mls/sec Iopamidol (Isovue-370 (76%)) 100 ml IV . DIRECTED [facility] Last Admin: 05/27/17 12:10 Dose: 100 ml Iopamidol (Isovue-300 (61%)) 86 ml IV . DIRECTED PRN PRN Reason: RADIOLOGY EXAM Stop: 05/28/17 07:20 Last Admin: 05/28/17 07:43 Dose: 100 ml Ketorolac Tromethamine (Toradol) 15 mg IVPUSH Q8H PRN PRN Reason: Pain Stop: 05/31/17 15:51 Midazolam HCl (Versed 1 Mg/Ml) Confirm Administered Dose 2 mg .ROUTE .STK-MED ONE Stop: 05/26/17 09:29 Morphine Sulfate (Morphine) 2 mg IVPUSH Q2H PRN PRN Reason: Pain Naloxone HCl (Narcan) 0.1 mg IVPUSH ONETIME PRN PRN Reason: Oversedation Ondansetron HCl (Zofran) 4 mg IV Q4H PRN PRN Reason: Nausea/Vomiting Ondansetron HCl (Zofran) 8 mg IVPUSH Q4H PRN PRN Reason: Nausea/Vomiting Potassium Chloride (Klor-Con M20) 40 meq PO ONETIME ONE Stop: 05/29/17 10:01 Last Admin: 05/29/17 10:34 Dose: 40 meq Povidone Iodine (Betadine 10% Soln) Confirm Administered Dose 1 ml .ROUTE .STK- MED ONE Stop: 05/26/17 08:31 Last Admin: 05/26/17 15:33 Dose: 20 ml Propofol (Diprivan 20 Ml) Confirm Administered Dose 200 mg .ROUTE .STK-MED ONE Stop: 05/26/17 09:29 Propofol (Diprivan 20 Ml) Confirm Administered Dose 200 mg .ROUTE .STK-MED ONE Stop: 05/26/17 14:40 Sodium Chloride (Saline Flush) 10 ml FLUSH ASDIRECTED PRN PRN Reason: Keep Vein Open Sodium Chloride (Saline Flush) 10 ml FLUSH ONETIME PRN PRN Reason: PER RADIOLOGY PROTOCOL Stop: 05/28/17 08:00 - Exam General: Alert, Oriented, Cooperative, Mild Distress Lungs: Clear to Auscultation, Normal Respiratory Effort Cardiovascular: Regular Rate, Regular Rhythm, No Murmurs GI/Abdominal Exam: Normal Bowel Sounds, Soft, Non-Tender, No Distention Extremities: Normal Inspection, No Pedal Edema Skin: Warm, Dry, Intact - Problem List Review Problem List Initiated/Reviewed/Updated: Yes - My Orders Last 24 Hours: My Active Orders 05/29/17 09:06 Transfuse Red Blood Cells [COMM] Urgent 05/29/17 15:21 Dietary Supplements [RC] TIDMEALS 05/30/17 08:00 Furosemide [Lasix] 20 mg IVPUSH NOW ONE - Plan Plan:: ASSESSMENT AND PLAN RIGHT FEMORAL NECK FRACTURE-associated with a fall, status post surgical repair -Management per Dr. Leandro Haas SYNCOPAL EPISODE-likely a vagal episode, evaluation unremarkable for other etiologies. No further episodes of lightheadedness or syncope. Echocardiogram obtained yesterday showed preserved left ventricular function with moderate valvular disease. 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 On CT scan of the chest as well as CT of the abdomen there is no evidence of metastatic disease or lymph node enlargement. -Will need follow-up with urology after she has recovered from hip fracture TRANSIENT HYPOXIA-no further episodes of hypoxia or tachycardia -Saline lock IV -Lasix 20 mg IV in a.m. -Reassess in a.m. ANEMIA-hemoglobin has drifted down through the week likely secondary to fracture and surgery -Transfuse one unit of red blood cells today -Recheck hemoglobin in a.m. 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 Haas -GI prophylaxis; not indicated -Cotter catheter; not indicated -Nutrition; regular diet, nothing by mouth after midnight -Nicotine dependence; not required CODE STATUS-FULL CODE ADMISSION STATUS-patient will be admitted to inpatient status, expect at least a 2 night hospital stay for evaluation and management of problems as outlined above. At the time of this admission I do not reasonably expected evaluation and management of this problem will require more than a 96 hour hospital stay. DISPOSITION-anticipate discharge to home after the hospital stay. PRIMARY CARE PROVIDER-Dr. Tuttle
[2017-05-29] MEDS: Acetaminophen 325 MG Tab PO PRN (15:32)
[2017-05-29] MEDS: ClonazePAM 0.5 MG Tab PO SCH (21:24)
[2017-05-30] MEDS ORDERED: Furosemide 20 MG/2 ML VIAL IVPUSH ONE (08:00)
[2017-05-30] MEDS: Carbidopa/Levodopa 25-100 MG Tab PO SCH ×3 (08:29→18:15)
[2017-05-30] MEDS: Aspirin 325 MG Tab.EC PO SCH ×2 (08:29→20:49)
[2017-05-30] MEDS: Iron PS Complex & Vit B12/FA Cap PO SCH ×2 (08:29→18:15)
[2017-05-30] MEDS: ClonazePAM 1 MG Tab PO SCH (08:31)
--- NOTE | 2017-05-30 11:15 | PCM.PN ---
- General Info Date of Service: 05/30/17 Functional Status: Reports: Pain Controlled, Tolerating Diet - Review of Systems General: Reports: Weakness. Denies: Fever, Chills Pulmonary: Reports: No Symptoms Cardiovascular: Reports: No Symptoms Gastrointestinal: Reports: No Symptoms Systems Review Comment:: This patient has remained stable over the past 24 hours, vital signs have been good and she has remained afebrile. Following transfusion yesterday hemoglobin increased to 8.6, now 9.1 this morning. Appetite seems to be improving as is overall strength. - Patient Data Vitals - Most Recent: Last Vital Signs Temp 98.1 F 05/30/17 07:16 Pulse 92 05/30/17 07:16 Resp 16 05/30/17 07:16 BP 138/79 05/30/17 07:16 Pulse Ox 99 05/30/17 08:00 Weight - Most Recent: 126 lb 12.817 oz I&O - Last 24 Hours: Intake & Output 05/29/17 05/30/17 05/30/17 22:59 06:59 14:59 Intake Total 280 Output Total 355 1000 350 Balance -355 -1000 -70 Lab Results Last 24 Hours: Laboratory Results - last 24 hr 05/29/17 05/29/17 05/30/17 Range/Units 09:06 14:10 04:50 WBC 7.6 (4.5-11.0) K/uL RBC 3.06 L (3.30-5.50) M/uL Hgb 8.6 L 9.1 L (12.0-15.0) g/dL Hct 28.8 L (36.0-48.0) % MCV 94 (80-98) fL MCH 30 (27-31) pg MCHC 32 (32-36) % Plt Count 227 (150-400) K/uL Neut % (Auto) 74 H (36-66) % Lymph % (Auto) 13 L (24-44) % [place] % (Auto) 10 H (2-6) % Eos % (Auto) 3 (2-4) % Baso % (Auto) 1 (0-1) % Sodium (140-148) mmol/L Potassium (3.6-5.2) mmol/L Chloride (100-108) mmol/L Carbon Dioxide (21-32) mmol/L Anion Gap (5.0-14.0) mmol/L BUN (7-18) mg/dL Creatinine (0.6-1.0) mg/dL Est Cr Clr Drug Dosing mL/min Estimated GFR (MDRD) (>60) Glucose (74-106) mg/dL Calcium (8.5-10.1) mg/dL Total Bilirubin (0.2-1.0) mg/dL AST (15-37) U/L ALT (12-78) U/L Alkaline Phosphatase (46-116) U/L Total Protein (6.4-8.2) g/dL Albumin (3.4-5.0) g/dL Globulin (2.3-3.5) g/dL Albumin/Globulin Ratio (1.2-2.2) Blood Type A POSITIVE Gel Antibody Screen Negative Crossmatch See Detail 05/30/17 Range/Units 04:50 WBC (4.5-11.0) K/uL RBC (3.30-5.50) M/uL Hgb (12.0-15.0) g/dL Hct (36.0-48.0) % MCV (80-98) fL MCH (27-31) pg MCHC (32-36) % Plt Count (150-400) K/uL Neut % (Auto) (36-66) % Lymph % (Auto) (24-44) % [place] % (Auto) (2-6) % Eos % (Auto) (2-4) % Baso % (Auto) (0-1) % Sodium 140 (140-148) mmol/L Potassium 3.8 (3.6-5.2) mmol/L Chloride 101 (100-108) mmol/L Carbon Dioxide 33 H (21-32) mmol/L Anion Gap 9.8 (5.0-14.0) mmol/L BUN 14 (7-18) mg/dL Creatinine 0.8 (0.6-1.0) mg/dL Est Cr Clr Drug Dosing 50.08 mL/min Estimated GFR (MDRD) > 60 (>60) Glucose 105 (74-106) mg/dL Calcium 8.4 L (8.5-10.1) mg/dL Total Bilirubin 0.8 D (0.2-1.0) mg/dL AST 25 (15-37) U/L ALT 16 (12-78) U/L Alkaline Phosphatase 49 (46-116) U/L Total Protein 6.4 (6.4-8.2) g/dL Albumin 2.0 L (3.4-5.0) g/dL Globulin 4.4 H (2.3-3.5) g/dL Albumin/Globulin Ratio 0.5 L (1.2-2.2) Blood Type Gel Antibody Screen Crossmatch Med Orders - Current: Current Medications Acetaminophen (Tylenol) 650 mg PO Q4H PRN PRN Reason: Pain (Mild 1-3)/fever Last Admin: 05/29/17 15:32 Dose: 650 mg Al Hydroxide/Mg Hydroxide (Mag-Al Plus) 30 ml PO Q4H PRN PRN Reason: Constipation Aspirin (Ecotrin) 325 mg PO BID [facility] Last Admin: 05/30/17 08:29 Dose: 325 mg Bisacodyl (Dulcolax) 10 mg PO DAILY PRN PRN Reason: Constipation Carbidopa/Levodopa (Sinemet 25-100 Mg) 1 tab PO TIDMEALS [facility] Last Admin: 05/30/17 08:29 Dose: 1 tab Clonazepam (Klonopin) 0.5 mg PO BEDTIME [facility] Last Admin: 05/29/17 21:24 Dose: 0.5 mg Clonazepam (Klonopin) 1 mg PO QAM [facility] Last Admin: 05/30/17 08:31 Dose: 1 mg Diazepam (Valium) 5 mg IVPUSH Q6H PRN PRN Reason: Spasms Diphenhydramine HCl (Benadryl) 25 mg IVPUSH Q4H PRN PRN Reason: Itching Docusate Sodium (Colace) 100 mg PO BID PRN PRN Reason: Constipation Furosemide (Lasix) 20 mg IVPUSH NOW ONE Stop: 05/31/17 08:01 Hydromorphone HCl (Dilaudid) 0.5 mg IVPUSH Q1H PRN PRN Reason: Pain Ketorolac Tromethamine (Toradol) 15 mg IVPUSH Q8H PRN PRN Reason: Pain Stop: 05/31/17 15:52 Magnesium Hydroxide (Milk Of Magnesia) 30 ml PO Q12H PRN PRN Reason: Constipation Morphine Sulfate (Morphine) 2 mg IVPUSH Q2H PRN PRN Reason: Pain Naloxone HCl (Narcan) 0.1 mg IVPUSH ONETIME PRN PRN Reason: Oversedation Ondansetron HCl (Zofran) 8 mg IVPUSH Q4H PRN PRN Reason: Nausea/Vomiting Oxycodone/Acetaminophen (Percocet 325-5 Mg) 2 tab PO Q4H PRN PRN Reason: Pain Last Admin: 05/29/17 02:25 Dose: 2 tab Polyethylene Glycol (Miralax) 17 gm PO DAILY PRN PRN Reason: Constipation Polysaccharide Iron Complex (Ferrex 150 Forte) 1 cap PO BIDMEALS [facility] Last Admin: 05/30/17 08:29 Dose: 1 cap Senna (Senna) 8.6 mg PO BID PRN PRN Reason: Constipation Sodium Chloride (Saline Flush) 10 ml FLUSH ONETIME PRN PRN Reason: PER RADIOLOGY PROTOCOL Last Admin: 05/28/17 07:43 Dose: 10 ml Tramadol HCl (Ultram) 100 mg PO Q6H PRN PRN Reason: Pain Zolpidem Tartrate (Ambien) 5 mg PO BEDTIME PRN PRN Reason: Sleep Discontinued Medications Hydrocodone Bitart/Acetaminophen ([place] 325-5 Mg) 1 tab PO Q4H PRN PRN Reason: Pain (moderate 4-6) Last Admin: 05/25/17 21:08 Dose: 1 tab Bupivacaine HCl/Epinephrine Bitart (Marcaine 0.5%/Epinephrine 1:200,000) Confirm Administered Dose 50 ml .ROUTE .STK-MED ONE Stop: 05/26/17 08:31 Last Admin: 05/26/17 15:37 Dose: 30 ml Cefazolin Sodium (Ancef) Confirm Administered Dose 1 gm .ROUTE .STK-MED ONE Stop: 05/26/17 14:31 Diazepam (Valium) 5 mg IVPUSH Q6H PRN PRN Reason: Spasms Diphenhydramine HCl (Benadryl) 25 mg IVPUSH Q4H PRN PRN Reason: Itching Ephedrine Sulfate (Ephedrine Sulfate) Confirm Administered Dose 50 mg .ROUTE .STK-MED ONE Stop: 05/26/17 14:31 Fentanyl (Sublimaze) Confirm Administered Dose 100 mcg .ROUTE .STK-MED ONE Stop: 05/26/17 09:29 Furosemide (Lasix) 20 mg IVPUSH NOW ONE Stop: 05/28/17 09:31 Last Admin: 05/28/17 09:54 Dose: 20 mg Furosemide (Lasix) 20 mg IVPUSH NOW ONE Stop: 05/30/17 08:01 Last Admin: 05/30/17 08:29 Dose: 20 mg Gentamicin Sulfate (Gentamicin) Confirm Administered Dose 240 mg .ROUTE .K- MED ONE Stop: 05/26/17 08:30 Last Admin: 05/26/17 14:40 Dose: 240 mg Hydromorphone HCl (Dilaudid) 0.5 mg IVPUSH Q1H PRN PRN Reason: Pain Last Admin: 05/25/17 17:16 Dose: 0.5 mg Lactated Ringer's (Ringers, Lactated) 1,000 mls @ 125 mls/hr IV ASDIRECTED [facility] Last Admin: 05/26/17 09:22 Dose: 125 mls/hr Sodium Chloride (Normal Saline) Confirm Administered Dose 10 mls @ as directed .ROUTE .[facility] ONE Stop: 05/26/17 14:31 Lactated Ringer's (Ringers, Lactated) 1,000 mls @ 100 mls/hr IV ASDIRECTED [facility] Last Admin: 05/26/17 18:06 Dose: 100 mls/hr Lactated Ringer's (Ringers, Lactated) 1,000 mls @ 100 mls/hr IV ASDIRECTED [facility] Last Admin: 05/28/17 00:06 Dose: 100 mls/hr Sodium Chloride (Normal Saline) 100 mls @ 3 mls/sec IV ONETIME ONE Stop: 05/27/17 11:40 Last Admin: 05/27/17 12:10 Dose: 3 mls/sec Sodium Chloride (Normal Saline) 70 mls @ 3 mls/sec IV ONETIME ONE Stop: 05/28/17 07:20 Last Admin: 05/28/17 07:43 Dose: 3 mls/sec Iopamidol (Isovue-370 (76%)) 100 ml IV . DIRECTED [facility] Last Admin: 05/27/17 12:10 Dose: 100 ml Iopamidol (Isovue-300 (61%)) 86 ml IV . DIRECTED PRN PRN Reason: RADIOLOGY EXAM Stop: 05/28/17 07:20 Last Admin: 05/28/17 07:43 Dose: 100 ml Ketorolac Tromethamine (Toradol) 15 mg IVPUSH Q8H PRN PRN Reason: Pain Stop: 05/31/17 15:51 Midazolam HCl (Versed 1 Mg/Ml) Confirm Administered Dose 2 mg .ROUTE .STK-MED ONE Stop: 05/26/17 09:29 Morphine Sulfate (Morphine) 2 mg IVPUSH Q2H PRN PRN Reason: Pain Naloxone HCl (Narcan) 0.1 mg IVPUSH ONETIME PRN PRN Reason: Oversedation Ondansetron HCl (Zofran) 4 mg IV Q4H PRN PRN Reason: Nausea/Vomiting Ondansetron HCl (Zofran) 8 mg IVPUSH Q4H PRN PRN Reason: Nausea/Vomiting Potassium Chloride (Klor-Con M20) 40 meq PO ONETIME ONE Stop: 05/29/17 10:01 Last Admin: 05/29/17 10:34 Dose: 40 meq Povidone Iodine (Betadine 10% Soln) Confirm Administered Dose 1 ml .ROUTE .STK- MED ONE Stop: 05/26/17 08:31 Last Admin: 05/26/17 15:33 Dose: 20 ml Propofol (Diprivan 20 Ml) Confirm Administered Dose 200 mg .ROUTE .STK-MED ONE Stop: 05/26/17 09:29 Propofol (Diprivan 20 Ml) Confirm Administered Dose 200 mg .ROUTE .STK-MED ONE Stop: 05/26/17 14:40 Sodium Chloride (Saline Flush) 10 ml FLUSH ASDIRECTED PRN PRN Reason: Keep Vein Open Sodium Chloride (Saline Flush) 10 ml FLUSH ONETIME PRN PRN Reason: PER RADIOLOGY PROTOCOL Stop: 05/28/17 08:00 - Exam Quality Assessment: Urine Catheter, DVT Prophylaxis General: Alert, Oriented, Cooperative, No Acute Distress Cardiovascular: Regular Rate, Regular Rhythm, No Murmurs GI/Abdominal Exam: Normal Bowel Sounds, Soft, Non-Tender, No Organomegaly, No Distention Extremities: Normal Inspection, No Pedal Edema Skin: Warm, Dry, Intact - Problem List Review Problem List Initiated/Reviewed/Updated: Yes - My Orders Last 24 Hours: My Active Orders 05/29/17 15:21 Dietary Supplements [RC] TIDMEALS 07/29/17 11:10 Cardiac Monitoring Discontinue [RC] Click to Edit Communication Order [RC] ASDIRECTED Remove Cotter Catheter [Urinary Catheter Removal] [RC] Per Unit Routine 05/31/17 05:00 BASIC METABOLIC PANEL,BMP [CHEM] Timed CBC WITH AUTO DIFF [HEME] Timed 05/31/17 08:00 Furosemide [Lasix] 20 mg IVPUSH NOW ONE - Plan Plan:: ASSESSMENT AND PLAN RIGHT FEMORAL NECK FRACTURE-associated with a fall, status post surgical repair -Management per Dr. Leandro Haas SYNCOPAL EPISODE-likely a vagal episode, evaluation unremarkable for other etiologies. No further episodes of lightheadedness or syncope. Echocardiogram showed preserved left ventricular function with moderate valvular disease. 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 On CT scan of the chest as well as CT of the abdomen there is no evidence of metastatic disease or lymph node enlargement. -Will need follow-up with urology after she has recovered from hip fracture TRANSIENT HYPOXIA-no further episodes of hypoxia or tachycardia -Saline lock IV -Lasix 20 mg IV in a.m. -Reassess in a.m. ANEMIA-hemoglobin stable following transfusion yesterday -Recheck hemoglobin in a.m. 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 Haas -GI prophylaxis; not indicated -Cotter catheter; not indicated -Nutrition; regular diet, nothing by mouth after midnight -Nicotine dependence; not required CODE STATUS-FULL CODE ADMISSION STATUS-patient will be admitted to inpatient status, expect at least a 2 night hospital stay for evaluation and management of problems as outlined above. At the time of this admission I do not reasonably expected evaluation and management of this problem will require more than a 96 hour hospital stay. DISPOSITION-anticipate discharge to home after the hospital stay. PRIMARY CARE PROVIDER-Dr. Tuttle
[2017-05-30] MEDS: Acetaminophen/oxyCODONE 325-5 MG Tab PO PRN (12:00)
--- NOTE | 2017-05-30 12:09 | PCM.PN ---
- General Info Date of Service: 05/30/17 Admission Dx/Problem (Free Text): Mariama is a pleasant 82 year old female who is status pod 4 of a left hip hemiarthorplasty. She is doing well. She has no concerns at this time. Her pain is under control with oral pain medication. She is urinating without difficulties. She continue to work with PT/OT with improvements. Functional Status: Reports: Pain Controlled, Tolerating Diet, Ambulating, Urinating - Patient Data Vitals - Most Recent: Last Vital Signs Temp 37 C 05/30/17 11:55 Pulse 88 05/30/17 11:55 Resp 16 05/30/17 11:55 BP 146/65 H 05/30/17 11:55 Pulse Ox 95 05/30/17 11:55 Weight - Most Recent: 126 lb 12.817 oz I&O - Last 24 Hours: Intake & Output 05/29/17 05/30/17 05/30/17 22:59 06:59 14:59 Intake Total 280 Output Total 355 1000 350 Balance -355 -1000 -70 Lab Results Last 24 Hours: Laboratory Results - last 24 hr 05/29/17 05/29/17 05/30/17 Range/Units 09:06 14:10 04:50 WBC 7.6 (4.5-11.0) K/uL RBC 3.06 L (3.30-5.50) M/uL Hgb 8.6 L 9.1 L (12.0-15.0) g/dL Hct 28.8 L (36.0-48.0) % MCV 94 (80-98) fL MCH 30 (27-31) pg MCHC 32 (32-36) % Plt Count 227 (150-400) K/uL Neut % (Auto) 74 H (36-66) % Lymph % (Auto) 13 L (24-44) % [place] % (Auto) 10 H (2-6) % Eos % (Auto) 3 (2-4) % Baso % (Auto) 1 (0-1) % Sodium (140-148) mmol/L Potassium (3.6-5.2) mmol/L Chloride (100-108) mmol/L Carbon Dioxide (21-32) mmol/L Anion Gap (5.0-14.0) mmol/L BUN (7-18) mg/dL Creatinine (0.6-1.0) mg/dL Est Cr Clr Drug Dosing mL/min Estimated GFR (MDRD) (>60) Glucose (74-106) mg/dL Calcium (8.5-10.1) mg/dL Total Bilirubin (0.2-1.0) mg/dL AST (15-37) U/L ALT (12-78) U/L Alkaline Phosphatase (46-116) U/L Total Protein (6.4-8.2) g/dL Albumin (3.4-5.0) g/dL Globulin (2.3-3.5) g/dL Albumin/Globulin Ratio (1.2-2.2) Blood Type A POSITIVE Gel Antibody Screen Negative Crossmatch See Detail 05/30/17 Range/Units 04:50 WBC (4.5-11.0) K/uL RBC (3.30-5.50) M/uL Hgb (12.0-15.0) g/dL Hct (36.0-48.0) % MCV (80-98) fL MCH (27-31) pg MCHC (32-36) % Plt Count (150-400) K/uL Neut % (Auto) (36-66) % Lymph % (Auto) (24-44) % [place] % (Auto) (2-6) % Eos % (Auto) (2-4) % Baso % (Auto) (0-1) % Sodium 140 (140-148) mmol/L Potassium 3.8 (3.6-5.2) mmol/L Chloride 101 (100-108) mmol/L Carbon Dioxide 33 H (21-32) mmol/L Anion Gap 9.8 (5.0-14.0) mmol/L BUN 14 (7-18) mg/dL Creatinine 0.8 (0.6-1.0) mg/dL Est Cr Clr Drug Dosing 50.08 mL/min Estimated GFR (MDRD) > 60 (>60) Glucose 105 (74-106) mg/dL Calcium 8.4 L (8.5-10.1) mg/dL Total Bilirubin 0.8 D (0.2-1.0) mg/dL AST 25 (15-37) U/L ALT 16 (12-78) U/L Alkaline Phosphatase 49 (46-116) U/L Total Protein 6.4 (6.4-8.2) g/dL Albumin 2.0 L (3.4-5.0) g/dL Globulin 4.4 H (2.3-3.5) g/dL Albumin/Globulin Ratio 0.5 L (1.2-2.2) Blood Type Gel Antibody Screen Crossmatch Med Orders - Current: Current Medications Acetaminophen (Tylenol) 650 mg PO Q4H PRN PRN Reason: Pain (Mild 1-3)/fever Last Admin: 05/29/17 15:32 Dose: 650 mg Al Hydroxide/Mg Hydroxide (Mag-Al Plus) 30 ml PO Q4H PRN PRN Reason: Constipation Aspirin (Ecotrin) 325 mg PO BID [facility] Last Admin: 05/30/17 08:29 Dose: 325 mg Bisacodyl (Dulcolax) 10 mg PO DAILY PRN PRN Reason: Constipation Carbidopa/Levodopa (Sinemet 25-100 Mg) 1 tab PO TIDMEALS [facility] Last Admin: 05/30/17 12:00 Dose: 1 tab Clonazepam (Klonopin) 0.5 mg PO BEDTIME [facility] Last Admin: 05/29/17 21:24 Dose: 0.5 mg Clonazepam (Klonopin) 1 mg PO QAM [facility] Last Admin: 05/30/17 08:31 Dose: 1 mg Diazepam (Valium) 5 mg IVPUSH Q6H PRN PRN Reason: Spasms Diphenhydramine HCl (Benadryl) 25 mg IVPUSH Q4H PRN PRN Reason: Itching Docusate Sodium (Colace) 100 mg PO BID PRN PRN Reason: Constipation Furosemide (Lasix) 20 mg IVPUSH ONETIME ONE Stop: 05/31/17 08:01 Hydromorphone HCl (Dilaudid) 0.5 mg IVPUSH Q1H PRN PRN Reason: Pain Ketorolac Tromethamine (Toradol) 15 mg IVPUSH Q8H PRN PRN Reason: Pain Stop: 05/31/17 15:52 Magnesium Hydroxide (Milk Of Magnesia) 30 ml PO Q12H PRN PRN Reason: Constipation Last Admin: 05/30/17 12:00 Dose: 30 ml Melatonin (Melatonin) 9 mg PO BEDTIME [facility] Morphine Sulfate (Morphine) 2 mg IVPUSH Q2H PRN PRN Reason: Pain Naloxone HCl (Narcan) 0.1 mg IVPUSH ONETIME PRN PRN Reason: Oversedation Ondansetron HCl (Zofran) 8 mg IVPUSH Q4H PRN PRN Reason: Nausea/Vomiting Oxycodone/Acetaminophen (Percocet 325-5 Mg) 2 tab PO Q4H PRN PRN Reason: Pain Last Admin: 05/30/17 12:00 Dose: 1 tab Polyethylene Glycol (Miralax) 17 gm PO DAILY PRN PRN Reason: Constipation Polysaccharide Iron Complex (Ferrex 150 Forte) 1 cap PO BIDMEALS [facility] Last Admin: 05/30/17 08:29 Dose: 1 cap Senna (Senna) 8.6 mg PO BID PRN PRN Reason: Constipation Sodium Chloride (Saline Flush) 10 ml FLUSH ONETIME PRN PRN Reason: PER RADIOLOGY PROTOCOL Last Admin: 05/28/17 07:43 Dose: 10 ml Tramadol HCl (Ultram) 100 mg PO Q6H PRN PRN Reason: Pain Zolpidem Tartrate (Ambien) 5 mg PO BEDTIME PRN PRN Reason: Sleep Discontinued Medications Hydrocodone Bitart/Acetaminophen ([place] 325-5 Mg) 1 tab PO Q4H PRN PRN Reason: Pain (moderate 4-6) Last Admin: 05/25/17 21:08 Dose: 1 tab Bupivacaine HCl/Epinephrine Bitart (Marcaine 0.5%/Epinephrine 1:200,000) Confirm Administered Dose 50 ml .ROUTE .STK-MED ONE Stop: 05/26/17 08:31 Last Admin: 05/26/17 15:37 Dose: 30 ml Cefazolin Sodium (Ancef) Confirm Administered Dose 1 gm .ROUTE .STK-MED ONE Stop: 05/26/17 14:31 Diazepam (Valium) 5 mg IVPUSH Q6H PRN PRN Reason: Spasms Diphenhydramine HCl (Benadryl) 25 mg IVPUSH Q4H PRN PRN Reason: Itching Ephedrine Sulfate (Ephedrine Sulfate) Confirm Administered Dose 50 mg .ROUTE .STK-MED ONE Stop: 05/26/17 14:31 Fentanyl (Sublimaze) Confirm Administered Dose 100 mcg .ROUTE .STK-MED ONE Stop: 05/26/17 09:29 Furosemide (Lasix) 20 mg IVPUSH NOW ONE Stop: 05/28/17 09:31 Last Admin: 05/28/17 09:54 Dose: 20 mg Furosemide (Lasix) 20 mg IVPUSH NOW ONE Stop: 05/30/17 08:01 Last Admin: 05/30/17 08:29 Dose: 20 mg Gentamicin Sulfate (Gentamicin) Confirm Administered Dose 240 mg .ROUTE .STK- MED ONE Stop: 05/26/17 08:30 Last Admin: 05/26/17 14:40 Dose: 240 mg Hydromorphone HCl (Dilaudid) 0.5 mg IVPUSH Q1H PRN PRN Reason: Pain Last Admin: 05/25/17 17:16 Dose: 0.5 mg Lactated Ringer's (Ringers, Lactated) 1,000 mls @ 125 mls/hr IV ASDIRECTED [facility] Last Admin: 05/26/17 09:22 Dose: 125 mls/hr Sodium Chloride (Normal Saline) Confirm Administered Dose 10 mls @ as directed .ROUTE .[facility] ONE Stop: 05/26/17 14:31 Lactated Ringer's (Ringers, Lactated) 1,000 mls @ 100 mls/hr IV ASDIRECTED [facility] Last Admin: 05/26/17 18:06 Dose: 100 mls/hr Lactated Ringer's (Ringers, Lactated) 1,000 mls @ 100 mls/hr IV ASDIRECTED [facility] Last Admin: 05/28/17 00:06 Dose: 100 mls/hr Sodium Chloride (Normal Saline) 100 mls @ 3 mls/sec IV ONETIME ONE Stop: 05/27/17 11:40 Last Admin: 05/27/17 12:10 Dose: 3 mls/sec Sodium Chloride (Normal Saline) 70 mls @ 3 mls/sec IV ONETIME ONE Stop: 05/28/17 07:20 Last Admin: 05/28/17 07:43 Dose: 3 mls/sec Iopamidol (Isovue-370 (76%)) 100 ml IV . DIRECTED [facility] Last Admin: 05/27/17 12:10 Dose: 100 ml Iopamidol (Isovue-300 (61%)) 86 ml IV . DIRECTED PRN PRN Reason: RADIOLOGY EXAM Stop: 05/28/17 07:20 Last Admin: 05/28/17 07:43 Dose: 100 ml Ketorolac Tromethamine (Toradol) 15 mg IVPUSH Q8H PRN PRN Reason: Pain Stop: 05/31/17 15:51 Midazolam HCl (Versed 1 Mg/Ml) Confirm Administered Dose 2 mg .ROUTE .STK-MED ONE Stop: 05/26/17 09:29 Morphine Sulfate (Morphine) 2 mg IVPUSH Q2H PRN PRN Reason: Pain Naloxone HCl (Narcan) 0.1 mg IVPUSH ONETIME PRN PRN Reason: Oversedation Ondansetron HCl (Zofran) 4 mg IV Q4H PRN PRN Reason: Nausea/Vomiting Ondansetron HCl (Zofran) 8 mg IVPUSH Q4H PRN PRN Reason: Nausea/Vomiting Potassium Chloride (Klor-Con M20) 40 meq PO ONETIME ONE Stop: 05/29/17 10:01 Last Admin: 05/29/17 10:34 Dose: 40 meq Povidone Iodine (Betadine 10% Soln) Confirm Administered Dose 1 ml .ROUTE .STK- MED ONE Stop: 05/26/17 08:31 Last Admin: 05/26/17 15:33 Dose: 20 ml Propofol (Diprivan 20 Ml) Confirm Administered Dose 200 mg .ROUTE .STK-MED ONE Stop: 05/26/17 09:29 Propofol (Diprivan 20 Ml) Confirm Administered Dose 200 mg .ROUTE .STK-MED ONE Stop: 05/26/17 14:40 Sodium Chloride (Saline Flush) 10 ml FLUSH ASDIRECTED PRN PRN Reason: Keep Vein Open Sodium Chloride (Saline Flush) 10 ml FLUSH ONETIME PRN PRN Reason: PER RADIOLOGY PROTOCOL Stop: 05/28/17 08:00 - Exam General: Alert, Oriented Extremities: Normal Inspection, Normal Range of Motion, No Pedal Edema Skin: Warm, Dry, Intact Wound/Incisions: Healing Well, Dressing Dry and Intact Neurological: No New Focal Deficit Psy/Mental Status: Alert - Problem List Review Problem List Initiated/Reviewed/Updated: Yes - Plan Plan:: ASSESSMENT AND PLAN RIGHT FEMORAL NECK FRACTURE-At this time she is discharged from ortho pedic services. She plans on going to a retirement on Thursday. The hospitalist will manage the patient at this time. I did send her on percocet as needed. She will follow up with us in 2 weeks in the ortho department.
[2017-05-30] MEDS: Melatonin 3 MG Tab PO SCH (20:49)
[2017-05-30] MEDS: ClonazePAM 0.5 MG Tab PO SCH (20:51)
[2017-05-31] MEDS: Acetaminophen 325 MG Tab PO PRN ×2 (03:00→20:20)
[2017-05-31] MEDS: Iron PS Complex & Vit B12/FA Cap PO SCH ×2 (07:59→18:21)
[2017-05-31] MEDS: Carbidopa/Levodopa 25-100 MG Tab PO SCH ×3 (07:59→18:21)
[2017-05-31] MEDS: Aspirin 325 MG Tab.EC PO SCH ×2 (07:59→20:19)
[2017-05-31] MEDS ORDERED: Furosemide 20 MG/2 ML VIAL IVPUSH ONE (08:00)
[2017-05-31] MEDS: ClonazePAM 1 MG Tab PO SCH (08:01)
--- NOTE | 2017-05-31 13:22 | PCM.DCSUM1 ---
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): 30289440, 029207312 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 Status: Acute Current Visit: Yes (4) Bilateral renal masses SNOMED Code(s): 214317531 ICD Code: N28.89 - OTHER SPECIFIED DISORDERS OF KIDNEY AND URETER Status: Acute Current Visit: Yes (5) Displaced fracture of right femoral neck SNOMED Code(s): 2538955 ICD Code: S72.001A - FRACTURE OF UNSP PART OF NECK OF RIGHT FEMUR, INIT Status: Acute Current Visit: No - Patient Summary/Data Consults: Consultations 05/25/17 16:09 Consult to Physician [CONS] Routine Consulting Provider: Perry Haas Call Completed to Consulting Physician: Yes Reason for Consult: Right femoral neck fracture 05/26/17 15:51 OT Evaluation and Treatment [CONS] Routine Please Evaluate and Treat. OT Reason for Consult: Strengthening This query below is only for informational purposes and is not editable. Admission Diagnosis/Problem: Fracture of femur PT Evaluation and Treatment [CONS] Routine Please Evaluate and Treat. PT Reason for Consult: Strengthening This query below is only for informational purposes and is not editable. Admission Diagnosis/Problem: Fracture of femur Hospital Course: This patient is an 82-year-old woman who fell on the day prior to admission, on the day of admission was seen and evaluated in the orthopedic clinic and on x- ray found to have a right femoral neck fracture. She was admitted to the hospital as a direct admission from the orthopedic clinic for hydration and pain management prior to surgical repair of the fracture. On admission she was given IV fluids for hydration and pain medication as needed. The day following admission she was taken to the operating room for surgical repair of the fracture by Dr. Leandro Haas. She initially did well following surgery but on the second day after surgery experienced a syncopal episode. She reported that she had become weak and lightheaded with diaphoresis and nausea then was unconscious for a short period of time. Was felt these symptoms were very consistent with a vagal episode. Further evaluation showed no other obvious cause of the syncopal episode. Because of some associated hypoxia CT scan of the chest with PE protocol was obtained showing no evidence of pulmonary emboli and no other significant pulmonary abnormalities. It did show bilateral renal masses.CT urogram was obtained the following day and again documented renal masses felt to be consistent with bilateral renal cell carcinoma. These findings were reviewed with the family as well as urologist in [place], they recommended urology follow-up after she has healed from her hip fracture. Hospital course was otherwise complicated by episode of tachycardia and hypoxia , this was felt to be secondary to fluid overload and she had no further episodes after she received IV diuretic therapy with good diuresis. Echocardiogram was obtained and showed adequate left ventricular function and moderate valvular disease. She had ongoing difficulty with anemia following surgery and her hemoglobin did drop to 7.4, at this point she was transfused one unit of red blood cells and also started on oral iron supplement. Following this her hemoglobin remains stable and will continue to be followed on an outpatient basis. She received daily physical therapy and occupational therapy while hospitalized and [facility]. Activity will be as tolerated and she will resume her usual diet. Follow-up appointment will be scheduled with Dr. Leandro Haas in approximately 3 weeks in the orthopedic clinic. She will be seen and followed by her primary care physician Dr. Tuttle while at the [facility]. Activity will be as tolerated and she will resume her usual diet. CT scan has been sent to the [facility] PACS system and an appointment will be scheduled in the department of urology in 1 month for follow -up of the bilateral renal masses. - Patient Instructions Diet: Usual Diet as Tolerated Other/Special Instructions: Daily physical therapy and occupational therapy while at the [facility]. Follow-up with primary care Dr. Tuttle as needed at the [facility]. Schedule consult in the department of urology at [facility], in one month, for evaluation of bilateral renal masses consistent with renal cell carcinoma. - Discharge Plan Prescriptions/Med Rec: Acetaminophen/oxyCODONE [Percocet 325-5 MG] 1 each PO Q4H PRN #30 tab PRN Reason: Pain Aspirin [Ecotrin] 325 mg PO BID #60 tab.ec Iron PS Complex & Vit B12/FA [Ferrex 150 Forte] 1 cap PO BIDMEALS #60 cap Home Medications: Home Meds Carbidopa/Levodopa [Carbidopa-Levodopa 25-100] 1 tab PO TIDMEALS 10/22/15 [ History] clonazePAM [Clonazepam] 0.5 mg PO BEDTIME 10/22/15 [History] clonazePAM [Clonazepam] 1 mg PO QAM 10/22/15 [History] Acetaminophen/oxyCODONE [Percocet 325-5 MG] 1 each PO Q4H PRN #30 tab 05/31/17 [ Rx] Aspirin [Ecotrin] 325 mg PO BID #60 tab.ec 05/31/17 [Rx] Iron PS Complex & Vit B12/FA [Ferrex 150 Forte] 1 cap PO BIDMEALS #60 cap [Rx] Referrals: Carlos A Tuttle MD [Primary Care Provider] - Perry Haas DO [Physician] - (2 week recheck. ) - Patient Data Vitals - Most Recent: Last Vital Signs Temp 98.2 F 05/31/17 11:23 Pulse 94 05/31/17 11:23 Resp 16 05/31/17 11:23 BP 144/84 H 05/31/17 11:23 Pulse Ox 98 05/31/17 11:23 Weight - Most Recent: 126 lb 12.817 oz I&O - Last 24 hours: Intake & Output 05/30/17 05/31/17 05/31/17 22:59 06:59 14:59 Intake Total 200 Output Total 1150 450 Balance 200 -1150 -450 Lab Results - Last 24 hrs: Laboratory Results - last 24 hr 05/31/17 05/31/17 Range/Units 06:00 06:00 WBC 6.9 (4.5-11.0) K/uL RBC 2.87 L (3.30-5.50) M/uL Hgb 8.6 L (12.0-15.0) g/dL Hct 27.0 L (36.0-48.0) % MCV 94 (80-98) fL MCH 30 (27-31) pg MCHC 32 (32-36) % Plt Count 260 (150-400) K/uL Neut % (Auto) 70 H (36-66) % Lymph % (Auto) 15 L (24-44) % [place] % (Auto) 12 H (2-6) % Eos % (Auto) 3 (2-4) % Baso % (Auto) 1 (0-1) % Sodium 139 L (140-148) mmol/L Potassium 4.1 (3.6-5.2) mmol/L Chloride 103 (100-108) mmol/L Carbon Dioxide 33 H (21-32) mmol/L Anion Gap 7.1 (5.0-14.0) mmol/L BUN 15 (7-18) mg/dL Creatinine 0.7 (0.6-1.0) mg/dL Est Cr Clr Drug Dosing 57.23 mL/min Estimated GFR (MDRD) > 60 (>60) Glucose 98 (74-106) mg/dL Calcium 8.2 L (8.5-10.1) mg/dL Med Orders - Current: Current Medications Acetaminophen (Tylenol) 650 mg PO Q4H PRN PRN Reason: Pain (Mild 1-3)/fever Last Admin: 05/31/17 03:00 Dose: 650 mg Al Hydroxide/Mg Hydroxide (Mag-Al Plus) 30 ml PO Q4H PRN PRN Reason: Constipation Aspirin (Ecotrin) 325 mg PO BID [facility] Last Admin: 05/31/17 07:59 Dose: 325 mg Bisacodyl (Dulcolax) 10 mg PO DAILY PRN PRN Reason: Constipation Last Admin: 05/30/17 18:18 Dose: 10 mg Carbidopa/Levodopa (Sinemet 25-100 Mg) 1 tab PO TIDMEALS [facility] Last Admin: 05/31/17 07:59 Dose: 1 tab Clonazepam (Klonopin) 0.5 mg PO BEDTIME [facility] Last Admin: 05/30/17 20:51 Dose: 0.5 mg Clonazepam (Klonopin) 1 mg PO QAM [facility] Last Admin: 05/31/17 08:01 Dose: 1 mg Diazepam (Valium) 5 mg IVPUSH Q6H PRN PRN Reason: Spasms Diphenhydramine HCl (Benadryl) 25 mg IVPUSH Q4H PRN PRN Reason: Itching Docusate Sodium (Colace) 100 mg PO BID PRN PRN Reason: Constipation Hydromorphone HCl (Dilaudid) 0.5 mg IVPUSH Q1H PRN PRN Reason: Pain Ketorolac Tromethamine (Toradol) 15 mg IVPUSH Q8H PRN PRN Reason: Pain Stop: 05/31/17 15:52 Magnesium Hydroxide (Milk Of Magnesia) 30 ml PO Q12H PRN PRN Reason: Constipation Last Admin: 05/30/17 12:00 Dose: 30 ml Melatonin (Melatonin) 9 mg PO BEDTIME [facility] Last Admin: 05/30/17 20:49 Dose: 9 mg Morphine Sulfate (Morphine) 2 mg IVPUSH Q2H PRN PRN Reason: Pain Naloxone HCl (Narcan) 0.1 mg IVPUSH ONETIME PRN PRN Reason: Oversedation Ondansetron HCl (Zofran) 8 mg IVPUSH Q4H PRN PRN Reason: Nausea/Vomiting Oxycodone/Acetaminophen (Percocet 325-5 Mg) 2 tab PO Q4H PRN PRN Reason: Pain Last Admin: 05/30/17 12:00 Dose: 1 tab Polyethylene Glycol (Miralax) 17 gm PO DAILY PRN PRN Reason: Constipation Polysaccharide Iron Complex (Ferrex 150 Forte) 1 cap PO BIDMEALS [facility] Last Admin: 05/31/17 07:59 Dose: 1 cap Senna (Senna) 8.6 mg PO BID PRN PRN Reason: Constipation Sodium Chloride (Saline Flush) 10 ml FLUSH ONETIME PRN PRN Reason: PER RADIOLOGY PROTOCOL Last Admin: 05/28/17 07:43 Dose: 10 ml Tramadol HCl (Ultram) 100 mg PO Q6H PRN PRN Reason: Pain Zolpidem Tartrate (Ambien) 5 mg PO BEDTIME PRN PRN Reason: Sleep Discontinued Medications Hydrocodone Bitart/Acetaminophen ([place] 325-5 Mg) 1 tab PO Q4H PRN PRN Reason: Pain (moderate 4-6) Last Admin: 05/25/17 21:08 Dose: 1 tab Bupivacaine HCl/Epinephrine Bitart (Marcaine 0.5%/Epinephrine 1:200,000) Confirm Administered Dose 50 ml .ROUTE .STK-MED ONE Stop: 05/26/17 08:31 Last Admin: 05/26/17 15:37 Dose: 30 ml Cefazolin Sodium (Ancef) Confirm Administered Dose 1 gm .ROUTE .STK-MED ONE Stop: 05/26/17 14:31 Diazepam (Valium) 5 mg IVPUSH Q6H PRN PRN Reason: Spasms Diphenhydramine HCl (Benadryl) 25 mg IVPUSH Q4H PRN PRN Reason: Itching Ephedrine Sulfate (Ephedrine Sulfate) Confirm Administered Dose 50 mg .ROUTE .STK-MED ONE Stop: 05/26/17 14:31 Fentanyl (Sublimaze) Confirm Administered Dose 100 mcg .ROUTE .[facility] ONE Stop: 05/26/17 09:29 Furosemide (Lasix) 20 mg IVPUSH NOW ONE Stop: 05/28/17 09:31 Last Admin: 05/28/17 09:54 Dose: 20 mg Furosemide (Lasix) 20 mg IVPUSH NOW ONE Stop: 05/30/17 08:01 Last Admin: 05/30/17 08:29 Dose: 20 mg Furosemide (Lasix) 20 mg IVPUSH ONETIME ONE Stop: 05/31/17 08:01 Last Admin: 05/31/17 07:59 Dose: 20 mg Gentamicin Sulfate (Gentamicin) Confirm Administered Dose 240 mg .ROUTE .STK- MED ONE Stop: 05/26/17 08:30 Last Admin: 05/26/17 14:40 Dose: 240 mg Hydromorphone HCl (Dilaudid) 0.5 mg IVPUSH Q1H PRN PRN Reason: Pain Last Admin: 05/25/17 17:16 Dose: 0.5 mg Lactated Ringer's (Ringers, Lactated) 1,000 mls @ 125 mls/hr IV ASDIRECTED [facility] Last Admin: 05/26/17 09:22 Dose: 125 mls/hr Sodium Chloride (Normal Saline) Confirm Administered Dose 10 mls @ as directed .ROUTE .STK-MED ONE Stop: 05/26/17 14:31 Lactated Ringer's (Ringers, Lactated) 1,000 mls @ 100 mls/hr IV ASDIRECTED [facility] Last Admin: 05/26/17 18:06 Dose: 100 mls/hr Lactated Ringer's (Ringers, Lactated) 1,000 mls @ 100 mls/hr IV ASDIRECTED [facility] Last Admin: 05/28/17 00:06 Dose: 100 mls/hr Sodium Chloride (Normal Saline) 100 mls @ 3 mls/sec IV ONETIME ONE Stop: 05/27/17 11:40 Last Admin: 05/27/17 12:10 Dose: 3 mls/sec Sodium Chloride (Normal Saline) 70 mls @ 3 mls/sec IV ONETIME ONE Stop: 05/28/17 07:20 Last Admin: 05/28/17 07:43 Dose: 3 mls/sec Iopamidol (Isovue-370 (76%)) 100 ml IV . DIRECTED [facility] Last Admin: 05/27/17 12:10 Dose: 100 ml Iopamidol (Isovue-300 (61%)) 86 ml IV . DIRECTED PRN PRN Reason: RADIOLOGY EXAM Stop: 05/28/17 07:20 Last Admin: 05/28/17 07:43 Dose: 100 ml Ketorolac Tromethamine (Toradol) 15 mg IVPUSH Q8H PRN PRN Reason: Pain Stop: 05/31/17 15:51 Midazolam HCl (Versed 1 Mg/Ml) Confirm Administered Dose 2 mg .ROUTE .STK-MED ONE Stop: 05/26/17 09:29 Morphine Sulfate (Morphine) 2 mg IVPUSH Q2H PRN PRN Reason: Pain Naloxone HCl (Narcan) 0.1 mg IVPUSH ONETIME PRN PRN Reason: Oversedation Ondansetron HCl (Zofran) 4 mg IV Q4H PRN PRN Reason: Nausea/Vomiting Ondansetron HCl (Zofran) 8 mg IVPUSH Q4H PRN PRN Reason: Nausea/Vomiting Potassium Chloride (Klor-Con M20) 40 meq PO ONETIME ONE Stop: 05/29/17 10:01 Last Admin: 05/29/17 10:34 Dose: 40 meq Povidone Iodine (Betadine 10% Soln) Confirm Administered Dose 1 ml .ROUTE .STK- MED ONE Stop: 05/26/17 08:31 Last Admin: 05/26/17 15:33 Dose: 20 ml Propofol (Diprivan 20 Ml) Confirm Administered Dose 200 mg .ROUTE .STK-MED ONE Stop: 05/26/17 09:29 Propofol (Diprivan 20 Ml) Confirm Administered Dose 200 mg .ROUTE .STK-MED ONE Stop: 05/26/17 14:40 Sodium Chloride (Saline Flush) 10 ml FLUSH ASDIRECTED PRN PRN Reason: Keep Vein Open Sodium Chloride (Saline Flush) 10 ml FLUSH ONETIME PRN PRN Reason: PER RADIOLOGY PROTOCOL Stop: 05/28/17 08:00 *Q Meaningful Use (DIS) - VTE *Q VTE Criteria *Q: VTE Pharmacological Contraindications *Q: Patient Scheduled Surgery - Stroke *Q Stroke Criteria *Q: - AMI *Q AMI Criteria *Q:
[2017-05-31] MEDS: Melatonin 3 MG Tab PO SCH (20:19)
[2017-05-31] MEDS: ClonazePAM 0.5 MG Tab PO SCH (20:20)
[2017-06-01] MEDS: Iron PS Complex & Vit B12/FA Cap PO SCH (07:57)
[2017-06-01] MEDS: Carbidopa/Levodopa 25-100 MG Tab PO SCH ×2 (07:57→12:17)
[2017-06-01] MEDS: Aspirin 325 MG Tab.EC PO SCH (08:02)
[2017-06-01] MEDS: ClonazePAM 1 MG Tab PO SCH (08:02)
[2017-06-01 11:05] VITALS: BP 129/70
== END 2017-06-01 14:00 | DRG 470 ==
LOC: JP.MS 15:26
PROVIDERS: ADMIT Hospitalist; ATTEND Hospitalist
PROC: 0SRR0JZ Replacement of Right Hip Joint, Femoral Surface with Synthetic Substitute, Open Approach (ICD-10-PCS; principal; 2017-05-26)
PROC: 30233N1 Transfusion of Nonautologous Red Blood Cells into Peripheral Vein, Percutaneous Approach (ICD-10-PCS; 2017-05-29)
DX: S72.001A Fracture of unspecified part of neck of right femur, initial encounter for closed fracture (principal); C64.2 Malignant neoplasm of left kidney, except renal pelvis; C64.1 Malignant neoplasm of right kidney, except renal pelvis; W19.XXXA Unspecified fall, initial encounter; F41.9 Anxiety disorder, unspecified; G20 Parkinson's disease; Z87.01 Personal history of pneumonia (recurrent); H54.7 Unspecified visual loss; Z79.82 Long term (current) use of aspirin; Z88.8 Allergy status to other drugs, medicaments and biological substances; Z86.2 Personal history of diseases of the blood and blood-forming organs and certain disorders involving the immune mechanism; R53.1 Weakness; R55 Syncope and collapse; I95.9 Hypotension, unspecified; R09.02 Hypoxemia; D64.9 Anemia, unspecified
CPT/HCPCS: 36415; 36430; 71275; 71275-26; 72170; 72170-26; 74178; 74178-26; 80048; 80053; 81001; 84484; 85018; 85025; 85610; 85730; 86850; 86900; 86901; 86920; 86922; 93005; 93306; 94762; 97110-GP; 97161-GP; 97165-GO; 97530-GP; A9270-GY; C1776; J0690; J1170; J1580; J1940; J2250; J2704; J3010; J7030; J7050; J7120; P9016; Q9967

== ENCOUNTER 2017-06-11 17:10 | Inpatient (IN) | payer MEDICARE, OTHER ==
[2017-06-11] MEDS ORDERED: fentaNYL 100 MCG/2 ML SDV IVPUSH ONE ×2 (18:34→20:23)
[2017-06-11] MEDS ORDERED: Acetaminophen 325 MG Tab PO ONE (20:23)
[2017-06-11] MEDS ORDERED: Ondansetron 4 MG Tab.DIS PO PRN (22:22)
--- NOTE | 2017-06-11 22:29 | PCM.HP ---
H&P History of Present Illness - General Date of Service: 06/11/17 Admit Problem/Dx: Admission Diagnosis/Problem Admission Diagnosis/Problem Hip fracture requiring operative repair - History of Present Illness Initial Comments - Free Text/Narative: 82-year-old female with past medical history of parkinsonism on carbidopa medication, anxiety on lorazepam medication, osteopenia came to the ED with the complaining of mechanical fall. Patient states that she had mechanical fall today immediately noticed pain at right hip area. Patient recently had right hip surgery two months ago. Patient states that the pain is a 9-10/10 in intensity anterior surface of the joint. Patient denies any weakness, numbness, tingling sensation in right lower extremity. In the ED patient x-rays showed right hip fracture at the processes area. ED physician contacted surgery team and planned to surgery tomorrow. surgery team requested medical team to admit the patient and preoperative evaluation. Patient denies any previous history of anaesthesia complications. Patient is not on any blood thinners. Patient denies any previous history of CAD, sleep apnea symptoms and signs. Patient denies any family history of bleeding and clotting disorders. Patient is not on any blood thinners. Patient denies any recent fevers, sick contacts. Denies any bowel, bladder disturbances. Patient is full code. patient recent lab results two months prior to the admission showed anemia hemoglobin is 8.4 and creatinine was within normal limit. No labs are in the file at present visit. Other review of systems are not significant. Right Knee Pain Score (Numeric/FACES): 10 - Related Data Allergies/Adverse Reactions: Allergies Allergy/AdvReac Type Severity Reaction Status Date / Time cortisone Allergy Rash Verified 06/11/17 17:23 Home Medications: Home Meds Carbidopa/Levodopa [Carbidopa-Levodopa 25-100] 1 tab PO TIDMEALS 10/22/15 [ History] clonazePAM [Clonazepam] 0.5 mg PO BEDTIME 10/22/15 [History] clonazePAM [Clonazepam] 1 mg PO QAM 10/22/15 [History] Aspirin [Ecotrin] 325 mg PO BID #60 tab.ec 05/31/17 [Rx] Iron PS Complex & Vit B12/FA [Ferrex 150 Forte] 1 cap PO BIDMEALS #60 cap [Rx] Acetaminophen [Tylenol] 650 mg PO TID 06/12/17 [History] Sennosides/Docusate Sodium [Senna Plus Tablet] 1 tab PO DAILY PRN 06/12/17 [ History] Past Medical History HEENT History: Reports: Cataract, Impaired Vision Respiratory History: Reports: Pneumonia, Recurrent Other Respiratory History: pleuracy Musculoskeletal History: Reports: Fracture, Other (See Below) Other Musculoskeletal History: R ankle elo Neurological History: Reports: Parkinson's Other Neuro History: GBS Psychiatric History: Reports: Anxiety Hematologic History: Reports: Blood Transfusion(s) Immunologic History: Reports: Other (See Below) Other Immunologic History: Guillan [place]. - Infectious Disease History Infectious Disease History: Reports: Chicken Pox, Measles, Shingles - Past Surgical History HEENT Surgical History: Reports: Cataract Surgery GI Surgical History: Reports: Appendectomy Female Surgical History: Reports: Oophorectomy, Salpingo-Oophorectomy Social & Family History - Family History Family Medical History: Noncontributory - Tobacco Use Smoking Status *Q: Unknown Ever Smoked - Caffeine Use Caffeine Use: Reports: Tea - Recreational Drug Use Recreational Drug Use: No H&P Review of Systems - Review of Systems: Review Of Systems: See Below General: Denies: Fever, Chills HEENT: Reports: No Symptoms Pulmonary: Reports: No Symptoms Cardiovascular: Reports: No Symptoms Gastrointestinal: Denies: Abdominal Pain, Anorexia, Distension, Nausea, Vomiting Genitourinary: Denies: Dysuria, Frequency, Burning, Flank Pain Musculoskeletal: Denies: Neck Pain, Shoulder Pain Skin: Denies: Cyanosis, Jaundice Psychiatric: Denies: Confusion, Depression, Anxiety Neurological: Denies: Confusion, Dizziness, Headache Hematologic/Lymphatic: Reports: Anemia. Denies: Easy Bleeding, Easy Bruising Exam - Exam Exam: See Below - Vital Signs Vital Signs: Last Vital Signs Temp 37.4 C 06/11/17 20:41 Pulse 102 H 06/11/17 22:02 Resp 16 06/11/17 20:41 BP 144/88 H 06/11/17 22:02 Pulse Ox 98 06/11/17 22:02 Weight: 58.513 kg - Exam Quality Assessment: No: Supplemental Oxygen General: Alert, Oriented, Cooperative, Mild Distress HEENT: PERRLA Neck: Supple, Trachea Midline Lungs: Clear to Auscultation, Normal Respiratory Effort Cardiovascular: Regular Rate, Regular Rhythm GI/Abdominal Exam: Normal Bowel Sounds, Soft Extremities: Leg Pain, Limited Range of Motion. No: Pedal Edema, Increased Warmth, Pallor, Redness Skin: Warm, Dry, Intact Neuro Extensive - Mental Status: Alert, Oriented x3, Normal Mood/Affect, Normal Cognition Psychiatric: Alert, Normal Affect - Patient Data Result Diagrams: 06/12/17 09:36 06/11/17 22:39 *Q Meaningful Use (ADM) - VTE *Q VTE Criteria *Q: - Stroke *Q Stroke Criteria *Q: - AMI *Q AMI Criteria *Q: - Problem List (1) Anxiety SNOMED Code(s): 24125553 ICD Code: F41.9 - ANXIETY DISORDER, UNSPECIFIED Status: Acute Current Visit: Yes (2) Femur fracture, right SNOMED Code(s): 02736930 ICD Code: S72.91XA - UNSP FRACTURE OF RIGHT FEMUR, INIT FOR CLOS FX Status : Acute Current Visit: Yes (3) Bilateral renal masses SNOMED Code(s): 220651256 ICD Code: N28.89 - OTHER SPECIFIED DISORDERS OF KIDNEY AND URETER Status: Chronic Current Visit: No (4) Guillain-[place] syndrome SNOMED Code(s): 68656113, 375984618 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 Status: Chronic Current Visit: No (5) Parkinson disease SNOMED Code(s): 23721860 ICD Code: G20 - PARKINSON'S DISEASE Status: Chronic Current Visit: No Problem List Initiated/Reviewed/Updated: Yes Orders Last 24hrs: Active Orders 24 hr Category Date Time Status Patient Status [ADT] Routine ADT 06/11/17 22:22 Ordered EKG Documentation Completion [RC] ASDIRECTED Care 06/11/17 22:26 Ordered Height and Weight [RC] DAILY Care 06/11/17 22:22 Ordered Intake and Output [RC] QSHIFT Care 06/11/17 22:24 Ordered Oxygen Therapy [RC] PRN Care 06/11/17 22:22 Ordered Pulse Oximetry [RC] CONTINUOUS Care 06/11/17 22:24 Ordered Urinary Catheter Assessment [RC] ASDIRECTED Care 06/11/17 22:22 Ordered Vital Signs [RC] Q4H Care 06/11/17 22:22 Ordered OT Evaluation and Treatment [CONS] Routine Cons 06/11/17 22:22 Ordered PT Evaluation and Treatment [CONS] Routine Cons 06/11/17 22:22 Ordered Nothing per Oral After Midnight Diet [DIET] Diet 06/11/17 Dinner Ordered Hip Min 2V or 3V w Pelvis Rt [CR] Stat Exams 06/11/17 18:19 Taken Knee 3V Rt [CR] Stat Exams 06/11/17 18:20 Taken CBC WITH AUTO DIFF [HEME] Stat Lab 06/11/17 22:22 Ordered COMPREHENSIVE METABOLIC PN,CMP [CHEM] Stat Lab 06/11/17 22:22 Ordered CREATINE KINASE,CK [CHEM] Stat Lab 06/11/17 22:22 Ordered CULTURE URINE [RM] Stat Lab 06/11/17 22:22 Uncollected UA W/MICROSCOPIC [URIN] Stat Lab 06/11/17 22:22 Uncollected Docusate Sodium/Sennosides [Senna Plus] Med 06/11/17 22:22 Ordered 1 tab PO BID PRN Ondansetron [Zofran ODT] Med 06/11/17 22:22 Ordered 4 mg PO Q6H PRN Sodium Chloride 0.9% @ 125 MLS/HR (1000ml) Med 06/11/17 22:30 Ordered Sodium Chloride 0.9% [Normal Saline] 1,000 ml IV ASDIRECTED Resuscitation Status Routine Resus Stat 06/11/17 22:22 Ordered EKG 12 Lead [EK] Stat Ther 06/11/17 22:22 Ordered Assessment/Plan Comment:: 82-year-old female with past medical history of parkinsonism disease, anxiety, Guillain-Us syndrome, bilateral renal mass, previous history of femur fracture repair came to the ED with the complaint of fall and diagnosed with recurrent right hip fracture at [facility], Surgery team planned for surgery tomorrow admitted in medical team for preoperative evaluation and for further management (2) Femur fracture, right planned to do surgery tomorrow by surgical team and asking for preoperative evaluation by the medical team patient doesn't have any previous history of CAD and bleeding, clotting disorders and not on any blood thinners did not have any labs on the file plan is to do CBC, CMP and EKG and urine analysis to know the etiology for fall will follow the results and change the management accordingly patient is low-risk and procedure is at low-risk no further investigation is necessary to decrease zaid-operative risk patient was previously diagnosed with chronic anemia, will follow hemoglobin levels compression stocking for DVT prophylaxis will differ further DVT prophylaxis management to surgery team (3) Bilateral renal masses outpatient management (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
[2017-06-11] MEDS ORDERED: Sodium Chloride 0.9% 1,000 ML IV SCH (22:30)
--- NOTE | 2017-06-11 22:33 | EDM.PDOC ---
ED HPI GENERAL MEDICAL PROBLEM - General Chief Complaint: Trauma Stated Complaint: FELL AT SKILLED NURSING CAME IN VIA AMBULANCE Time Seen by Provider: 06/11/17 18:10 Source of Information: Reports: Patient, Family History Limitations: Reports: No Limitations - History of Present Illness INITIAL COMMENTS - FREE TEXT/NARRATIVE: This patient arrived by ambulance after a fall at the long-term. She is presently at a local long-term for rehabilitation after a total hip replacement on about May 26. She had a femoral neck fracture after a fall. Today she was apparently up walking and suffered a fall. She did mention something about her tailbone hurting but then says that doesn't seem to be a problem. She is having a lot of pain in the right hip as well as the right knee. It's noted that she had pain in the right knee with the original hip fracture and x-rays were done. She denies any other injuries. Right Knee Pain Score (Numeric/FACES): 10 - Related Data Allergies Allergy/AdvReac Type Severity Reaction Status Date / Time cortisone Allergy Rash Verified 06/11/17 17:23 Home Meds: Home Meds Carbidopa/Levodopa [Carbidopa-Levodopa 25-100] 1 tab PO TIDMEALS 10/22/15 [ History] clonazePAM [Clonazepam] 0.5 mg PO BEDTIME 10/22/15 [History] clonazePAM [Clonazepam] 1 mg PO QAM 10/22/15 [History] Acetaminophen/oxyCODONE [Percocet 325-5 MG] 1 each PO Q4H PRN #30 tab 05/31/17 [ Rx] Aspirin [Ecotrin] 325 mg PO BID #60 tab.ec 05/31/17 [Rx] Iron PS Complex & Vit B12/FA [Ferrex 150 Forte] 1 cap PO BIDMEALS #60 cap [Rx] Past Medical History HEENT History: Reports: Cataract, Impaired Vision Respiratory History: Reports: Pneumonia, Recurrent Other Respiratory History: pleuracy Musculoskeletal History: Reports: Fracture, Other (See Below) Other Musculoskeletal History: R ankle elo Neurological History: Reports: Parkinson's Other Neuro History: GBS Psychiatric History: Reports: Anxiety Hematologic History: Reports: Blood Transfusion(s) Immunologic History: Reports: Other (See Below) 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 - Infectious Disease History Infectious Disease History: Reports: Chicken Pox, Measles, Shingles - Past Surgical History HEENT Surgical History: Reports: Cataract Surgery GI Surgical History: Reports: Appendectomy Female Surgical History: Reports: Oophorectomy, Salpingo-Oophorectomy Social & Family History - Family History Family Medical History: Noncontributory - Tobacco Use Smoking Status *Q: Unknown Ever Smoked - Caffeine Use Caffeine Use: Reports: Tea - Recreational Drug Use Recreational Drug Use: No Review of Systems - Review of Systems Review Of Systems: ROS reveals no pertinent complaints other than HPI. ED EXAM, GENERAL - Physical Exam Exam: See Below Exam Limited By: No Limitations General Appearance: Alert, Thin, Other (Chronically ill appearing) Eye Exam: Bilateral Eye: Normal Inspection Throat/Mouth: Normal Inspection Respiratory/Chest: Lungs Clear Cardiovascular: Regular Rate, Rhythm GI/Abdominal: Non-Tender Extremities: Other (She is unable to move the right leg. She can wiggle her toes and move the ankle. She has some mild tenderness to the right knee but no obvious swelling or ecchymosis. I did not manipulate the right hip.) Neurological: Alert, Oriented, CN II-XII Intact, No Motor/Sensory Deficits Psychiatric: Flat Affect Skin Exam: Warm, Dry Course - Vital Signs Last Recorded V/S: Last Vital Signs Temp 37.4 C 06/11/17 20:41 Pulse 102 H 06/11/17 22:02 Resp 16 06/11/17 20:41 BP 144/88 H 06/11/17 22:02 Pulse Ox 98 06/11/17 22:02 - Orders/Labs/Meds Orders: Active Orders 24 hr Category Date Time Status Patient Status [ADT] Routine ADT 06/11/17 22:22 Ordered EKG Documentation Completion [RC] ASDIRECTED Care 06/11/17 22:26 Ordered Height and Weight [RC] DAILY Care 06/11/17 22:22 Ordered Intake and Output [RC] QSHIFT Care 06/11/17 22:24 Ordered Oxygen Therapy [RC] PRN Care 06/11/17 22:22 Ordered Pulse Oximetry [RC] CONTINUOUS Care 06/11/17 22:24 Ordered Urinary Catheter Assessment [RC] ASDIRECTED Care 06/11/17 22:22 Ordered Vital Signs [RC] Q4H Care 06/11/17 22:22 Ordered OT Evaluation and Treatment [CONS] Routine Cons 06/11/17 22:22 Ordered PT Evaluation and Treatment [CONS] Routine Cons 06/11/17 22:22 Ordered Nothing per Oral After Midnight Diet [DIET] Diet 06/11/17 Dinner Ordered Hip Min 2V or 3V w Pelvis Rt [CR] Stat Exams 06/11/17 18:19 Taken Knee 3V Rt [CR] Stat Exams 06/11/17 18:20 Taken CBC WITH AUTO DIFF [HEME] Stat Lab 06/11/17 22:22 Ordered COMPREHENSIVE METABOLIC PN,CMP [CHEM] Stat Lab 06/11/17 22:22 Ordered CREATINE KINASE,CK [CHEM] Stat Lab 06/11/17 22:22 Ordered CULTURE URINE [RM] Stat Lab 06/11/17 22:22 Uncollected UA W/MICROSCOPIC [URIN] Stat Lab 06/11/17 22:22 Uncollected Docusate Sodium/Sennosides [Senna Plus] Med 06/11/17 22:22 Ordered 1 tab PO BID PRN Ondansetron [Zofran ODT] Med 06/11/17 22:22 Ordered 4 mg PO Q6H PRN Sodium Chloride 0.9% @ 125 MLS/HR (1000ml) Med 06/11/17 22:30 Ordered Sodium Chloride 0.9% [Normal Saline] 1,000 ml IV ASDIRECTED Resuscitation Status Routine Resus Stat 06/11/17 22:22 Ordered EKG 12 Lead [EK] Stat Ther 06/11/17 22:22 Ordered Meds: Medications Discontinued Medications Generic Name Dose Route Start Last Admin Trade Name Freq PRN Reason Stop Dose Admin Acetaminophen 650 mg 06/11/17 20:23 06/11/17 20:34 Tylenol PO 06/11/17 20:24 650 mg NOW ONE Administration Fentanyl 50 mcg 06/11/17 18:34 06/11/17 18:48 Sublimaze IVPUSH 06/11/17 18:35 50 mcg ONETIME ONE Administration Fentanyl 50 mcg 06/11/17 20:23 06/11/17 20:36 Sublimaze IVPUSH 06/11/17 20:24 50 mcg ONETIME ONE Administration - Radiology Interpretation Free Text/Narrative:: Right knee appears unchanged from May 26. Right hip and pelvis shows a spiral fracture of the upper femur over the shaft of the hip prosthesis recently placed. - Re-Assessments/Exams Free Text/Narrative Re-Assessment/Exam: 06/11/17 22:32 Patient was given 2 doses of IV fentanyl 50 mg as well as Tylenol 650 mg orally. Case was discussed with Dr. Marcel Haas. He will plan to do surgery on her tomorrow. Call was placed to who has come to the emergency department to admit the patient Departure - Departure Time of Disposition: 22:33 Disposition: Admitted As Inpatient 67 Condition: Fair Clinical Impression: Femur fracture, right - Discharge Information Forms: ED Department Discharge - My Orders Last 24 Hours: My Active Orders 06/11/17 18:19 Hip Min 2V or 3V w Pelvis Rt [CR] Stat 06/11/17 18:20 Knee 3V Rt [CR] Stat - Assessment/Plan Last 24 Hours: My Active Orders 06/11/17 18:19 Hip Min 2V or 3V w Pelvis Rt [CR] Stat 06/11/17 18:20 Knee 3V Rt [CR] Stat
[2017-06-11] MEDS ORDERED: ClonazePAM 0.5 MG Tab PO ONE (22:49)
[2017-06-12] MEDS: traMADol 50 MG Tab PO PRN ×3 (00:34→21:20)
[2017-06-12] MEDS: HYDROmorphone 0.5 MG/0.5 ML Syringe IVPUSH PRN (07:40)
--- NOTE | 2017-06-12 09:13 | CR ---
Hip Min 2V or 3V w Pelvis Rt HISTORY: trauma FINDINGS: There has been recent placement of right total hip arthroplasty. Position and alignment of the arthroplasty are stable. Skin ginette are redemonstrated. There is an acute oblique fracture subtrochanteric fracture proximal right femur along the femoral c omponent of the prosthesis. There is slight lateral displacement and varus deformity. No other fract ure or dislocation is identified. Bony structures are osteopenic. IMPRESSION: Acute, oblique, subtrochanteric fracture proximal right femur. Right total hip arthropla sty is redemonstrated.
--- NOTE | 2017-06-12 09:16 | CR ---
Knee 3V Rt HISTORY: trauma FINDINGS: Bony structures are osteopenic. No acute fracture or dislocation is identified. There is m ild narrowing of the medial compartment. No hypertrophic changes are seen. I see no joint effusion. IMPRESSION: Osteopenia. Mild degenerative narrowing medial compartment right knee. No fracture or ot her acute abnormality is identified.
[2017-06-12] MEDS ORDERED: Propofol 200 MG/20 ML SDV ONE (09:55)
[2017-06-12] MEDS ORDERED: fentaNYL 100 MCG/2 ML SDV ONE (09:55)
[2017-06-12] MEDS ORDERED: Midazolam 1 MG/ML 2 ML SDV ONE (09:55)
[2017-06-12] MEDS ORDERED: Bupivacaine 0.5%/EPINEPHrine 1:200,000 50 ML MDV ONE (09:59)
[2017-06-12] MEDS ORDERED: Povidone-Iodine 10% Soln 118.25 ML Bottle ONE (09:59)
[2017-06-12] MEDS ORDERED: Gentamicin 40 MG/ML 2 ML Vial ONE ×2 (09:59→10:00)
--- NOTE | 2017-06-12 12:15 | PCM.PN ---
- General Info Date of Service: 06/12/17 Functional Status: Reports: Pain Controlled - Review of Systems General: Reports: Weakness. Denies: Fever, Chills Pulmonary: Reports: No Symptoms Cardiovascular: Reports: No Symptoms Gastrointestinal: Reports: No Symptoms Musculoskeletal: Reports: Leg Pain Systems Review Comment:: Ms. Villalta is an 82-year-old woman who was admitted last night by Dr. Mendenhall with recurrent right hip fracture. She had fractured her hip in May and underwent surgical repair with a unipolar prosthesis. Unfortunately yesterday fell and experienced a fracture around the prosthesis. Plan was for surgical repair today, on follow-up laboratory studies her hemoglobin is 7.7 and the anesthesia service has requested that she be transfused prior to surgery. She continues to have intermittent pain related to muscle spasm in her upper right leg. Vital signs have been stable and she has been afebrile. Urinalysis obtained at the time of admission shows evidence of urinary tract infection, culture has been obtained. - Patient Data Vitals - Most Recent: Last Vital Signs Temp 99.8 F 06/12/17 11:59 Pulse 102 H 06/12/17 11:59 Resp 16 06/12/17 11:59 BP 119/73 06/12/17 11:59 Pulse Ox 94 L 06/12/17 11:59 Weight - Most Recent: 137 lb I&O - Last 24 Hours: Intake & Output 06/11/17 06/12/17 06/12/17 22:59 06:59 14:59 Intake Total 120 240 Output Total 360 Balance -240 240 Lab Results Last 24 Hours: Laboratory Results - last 24 hr 06/11/17 06/11/17 06/12/17 Range/Units 22:39 22:39 09:36 WBC 11.5 H 9.0 (4.5-11.0) K/uL RBC 2.87 L 2.62 L (3.30-5.50) M/uL Hgb 8.5 L 7.7 L (12.0-15.0) g/dL Hct 27.4 L 25.2 L (36.0-48.0) % MCV 96 96 (80-98) fL MCH 30 29 (27-31) pg MCHC 31 L 31 L (32-36) % Plt Count 518 H 484 H (150-400) K/uL Neut % (Auto) 84 H (36-66) % Lymph % (Auto) 10 L (24-44) % [place] % (Auto) 6 (2-6) % Eos % (Auto) 0 L (2-4) % Baso % (Auto) 0 (0-1) % Sodium 143 (140-148) mmol/L Potassium 4.0 (3.6-5.2) mmol/L Chloride 107 (100-108) mmol/L Carbon Dioxide 29 (21-32) mmol/L Anion Gap 7.4 (5.0-14.0) mmol/L BUN 23 H (7-18) mg/dL Creatinine 0.8 (0.6-1.0) mg/dL Est Cr Clr Drug Dosing 50.94 mL/min Estimated GFR (MDRD) > 60 (>60) Glucose 116 H (74-106) mg/dL Calcium 8.1 L (8.5-10.1) mg/dL Total Bilirubin 0.6 (0.2-1.0) mg/dL AST 20 (15-37) U/L ALT 17 (12-78) U/L Alkaline Phosphatase 110 (46-116) U/L Creatine Kinase 53 (26-192) U/L Total Protein 6.7 (6.4-8.2) g/dL Albumin 2.5 L (3.4-5.0) g/dL Globulin 4.2 H (2.3-3.5) g/dL Albumin/Globulin Ratio 0.6 L (1.2-2.2) Blood Type Gel Antibody Screen Crossmatch 06/12/17 Range/Units 09:36 WBC (4.5-11.0) K/uL RBC (3.30-5.50) M/uL Hgb (12.0-15.0) g/dL Hct (36.0-48.0) % MCV (80-98) fL MCH (27-31) pg MCHC (32-36) % Plt Count (150-400) K/uL Neut % (Auto) (36-66) % Lymph % (Auto) (24-44) % [place] % (Auto) (2-6) % Eos % (Auto) (2-4) % Baso % (Auto) (0-1) % Sodium (140-148) mmol/L Potassium (3.6-5.2) mmol/L Chloride (100-108) mmol/L Carbon Dioxide (21-32) mmol/L Anion Gap (5.0-14.0) mmol/L BUN (7-18) mg/dL Creatinine (0.6-1.0) mg/dL Est Cr Clr Drug Dosing mL/min Estimated GFR (MDRD) (>60) Glucose (74-106) mg/dL Calcium (8.5-10.1) mg/dL Total Bilirubin (0.2-1.0) mg/dL AST (15-37) U/L ALT (12-78) U/L Alkaline Phosphatase (46-116) U/L Creatine Kinase (26-192) U/L Total Protein (6.4-8.2) g/dL Albumin (3.4-5.0) g/dL Globulin (2.3-3.5) g/dL Albumin/Globulin Ratio (1.2-2.2) Blood Type A POSITIVE Gel Antibody Screen Negative Crossmatch See Detail Med Orders - Current: Current Medications Aspirin (Ecotrin) 325 mg PO BID [facility] Carbidopa/Levodopa (Sinemet 25-100 Mg) 1 tab PO TIDMEALS [facility] Clonazepam (Klonopin) 0.5 mg PO BEDTIME [facility] Clonazepam (Klonopin) 1 mg PO QAM [facility] Hydromorphone HCl (Dilaudid) 0.5 mg IVPUSH Q3H PRN PRN Reason: Pain (moderate 4-6) Last Admin: 06/12/17 07:40 Dose: 0.5 mg Ceftriaxone Sodium 1 gm/ (Sodium Chloride) 50 mls @ 100 mls/hr IV Q24H [facility] Melatonin (Melatonin) 9 mg PO BEDTIME [facility] Ondansetron HCl (Zofran Odt) 4 mg PO Q6H PRN PRN Reason: Nausea able to take PO Polysaccharide Iron Complex (Ferrex 150 Forte) 1 cap PO BIDMEALS [facility] Senna/Docusate Sodium (Senna Plus) 1 tab PO BID PRN PRN Reason: Constipation Senna/Docusate Sodium (Senna Plus) 1 tab PO DAILY PRN PRN Reason: Constipation Tramadol HCl (Ultram) 50 mg PO Q8H PRN PRN Reason: Pain Last Admin: 06/12/17 00:34 Dose: 50 mg Discontinued Medications Acetaminophen (Tylenol) 650 mg PO NOW ONE Stop: 06/11/17 20:24 Last Admin: 06/11/17 20:34 Dose: 650 mg Bupivacaine HCl/Epinephrine Bitart (Marcaine 0.5%/Epinephrine 1:200,000) Confirm Administered Dose 50 ml .ROUTE .STK-MED ONE Stop: 06/12/17 10:00 Clonazepam (Klonopin) 0.5 mg PO ONETIME ONE Stop: 06/11/17 22:50 Last Admin: 06/12/17 00:04 Dose: 0.5 mg Fentanyl (Sublimaze) 50 mcg IVPUSH ONETIME ONE Stop: 06/11/17 18:35 Last Admin: 06/11/17 18:48 Dose: 50 mcg Fentanyl (Sublimaze) 50 mcg IVPUSH ONETIME ONE Stop: 06/11/17 20:24 Last Admin: 06/11/17 20:36 Dose: 50 mcg Gentamicin Sulfate (Gentamicin) Confirm Administered Dose 240 mg .ROUTE .STK- MED ONE Stop: 06/12/17 10:00 Gentamicin Sulfate (Gentamicin) Confirm Administered Dose 80 mg .ROUTE .STK-MED ONE Stop: 06/12/17 10:01 Sodium Chloride (Normal Saline) 1,000 mls @ 125 mls/hr IV ASDIRECTED [facility] Last Admin: 06/12/17 07:39 Dose: 125 mls/hr Povidone Iodine (Betadine 10% Soln) Confirm Administered Dose 1 ml .ROUTE .STK- MED ONE Stop: 06/12/17 10:00 - Exam Quality Assessment: Urine Catheter, DVT Prophylaxis General: Alert, Oriented, Cooperative, Moderate Distress Lungs: Clear to Auscultation, Normal Respiratory Effort Cardiovascular: Regular Rate, Regular Rhythm, No Murmurs GI/Abdominal Exam: Normal Bowel Sounds, Soft, Non-Tender, No Distention Extremities: Leg Pain Skin: Warm, Dry, Intact - Problem List Review Problem List Initiated/Reviewed/Updated: Yes - My Orders Last 24 Hours: My Active Orders 06/12/17 09:36 RED BLOOD CELLS LP [BBK] Stat 06/12/17 10:16 Transfuse Red Blood Cells [COMM] Urgent 06/12/17 10:19 Convert IV to Saline Lock [OM.PC] Routine 06/12/17 12:07 Docusate Sodium/Sennosides [Senna Plus] 1 tab PO DAILY PRN 06/12/17 12:15 cefTRIAXone [Rocephin] 1 gm Sodium Chloride 0.9% [Normal Saline] 50 ml IV Q24H 06/12/17 17:00 Carbidopa/Levodopa [Sinemet 25-100 mg] 1 tab PO TIDMEALS Iron PS Complex & Vit B12/FA [Ferrex 150 Forte] 1 cap PO BIDMEALS 06/12/17 21:00 Aspirin [Ecotrin] 325 mg PO BID ClonazePAM [KlonoPIN] 0.5 mg PO BEDTIME Melatonin 9 mg PO BEDTIME 06/12/17 Breakfast Regular Diet [DIET] 06/13/17 05:00 BASIC METABOLIC PANEL,BMP [CHEM] Timed CBC WITH AUTO DIFF [HEME] Timed MAGNESIUM [CHEM] Timed 06/13/17 09:00 ClonazePAM [KlonoPIN] 1 mg PO QAM - Plan Plan:: ASSESSMENT AND PLAN RIGHT HIP FRACTURE AROUND SURGICAL PROSTHESIS- she experienced a fall yesterday fracturing bone around previously placed prosthesis -Management per Dr. Leandro Haas URINARY TRACT INFECTION-asymptomatic -Urine culture pending -Rocephin 1 g IV every 24 hours BILATERAL RENAL MASSES-CT urogram obtained during last admission, was consistent with bilateral renal cell carcinoma. On CT scan of the chest as well as CT of the abdomen there is no evidence of metastatic disease or lymph node enlargement. -Will need follow-up with urology after she has recovered from hip fracture ANEMIA-Hemoglobin this morning low at 7.7 -Transfuse 2 units of red blood cells -Recheck hemoglobin in a.m. 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 Haas -GI prophylaxis; not indicated -Cotter catheter; placement because of recurrent hip fracture -Nutrition; regular diet, nothing by mouth after midnight -Nicotine dependence; not required CODE STATUS-FULL CODE ADMISSION STATUS-patient will be admitted to inpatient status, expect at least a 2 night hospital stay for evaluation and management of problems as outlined above. At the time of this admission I do not reasonably expected evaluation and management of this problem will require more than a 96 hour hospital stay. DISPOSITION-anticipate discharge to home after the hospital stay. PRIMARY CARE PROVIDER-Dr. Tuttle
[2017-06-12] MEDS: cefTRIAXone 1 GM in Sodium Chloride 0.9% 50 ML IV SCH (13:28)
[2017-06-12] MEDS: Iron PS Complex & Vit B12/FA Cap PO SCH (17:38)
[2017-06-12] MEDS: Carbidopa/Levodopa 25-100 MG Tab PO SCH (17:38)
[2017-06-12] MEDS: Melatonin 3 MG Tab PO SCH (21:19)
[2017-06-12] MEDS: Aspirin 325 MG Tab.EC PO SCH (21:20)
[2017-06-12] MEDS: ClonazePAM 0.5 MG Tab PO SCH (21:20)
[2017-06-13] MEDS: traMADol 50 MG Tab PO PRN ×2 (07:14→20:29)
[2017-06-13] MEDS: Carbidopa/Levodopa 25-100 MG Tab PO SCH ×3 (07:14→19:31)
[2017-06-13] MEDS: Iron PS Complex & Vit B12/FA Cap PO SCH ×2 (07:14→19:31)
[2017-06-13] MEDS: ClonazePAM 1 MG Tab PO SCH (09:47)
[2017-06-13] MEDS: Aspirin 325 MG Tab.EC PO SCH ×2 (09:47→20:29)
[2017-06-13] MEDS: Lactated Ringers 1,000 ML IV SCH ×2 (10:35→20:49)
[2017-06-13] MEDS ORDERED: Povidone-Iodine 10% Soln 118.25 ML Bottle ONE (11:00)
[2017-06-13] MEDS ORDERED: Gentamicin 40 MG/ML 2 ML Vial ONE (11:00)
[2017-06-13] MEDS ORDERED: Bupivacaine 0.5%/EPINEPHrine 1:200,000 50 ML MDV ONE (11:00)
--- NOTE | 2017-06-13 12:06 | PCM.PN ---
- General Info Date of Service: 06/13/17 Functional Status: Reports: Pain Controlled, Tolerating Diet - Review of Systems General: Reports: Weakness. Denies: Fever, Chills Pulmonary: Reports: No Symptoms Cardiovascular: Reports: No Symptoms Gastrointestinal: Reports: No Symptoms Musculoskeletal: Reports: Leg Pain, Joint Pain Systems Review Comment:: This patient has been stable since admission, hemoglobin has improved following transfusion of 2 units of red blood cells. Vital signs have been stable and she has remained afebrile. Current plan is to proceed with surgical repair of the periprosthetic fracture later today. - Patient Data Vitals - Most Recent: Last Vital Signs Temp 99.0 F 06/13/17 10:25 Pulse 81 06/13/17 10:25 Resp 16 06/13/17 10:25 BP 116/76 06/13/17 10:25 Pulse Ox 95 06/13/17 10:25 Weight - Most Recent: 143 lb 6.4 oz I&O - Last 24 Hours: Intake & Output 06/12/17 06/13/17 06/13/17 22:59 06:59 14:59 Intake Total 1737 Output Total 700 1000 Balance 1037 -1000 Lab Results Last 24 Hours: Laboratory Results - last 24 hr 06/12/17 06/13/17 06/13/17 Range/Units 09:36 05:51 05:51 WBC 9.2 (4.5-11.0) K/uL RBC 3.39 (3.30-5.50) M/uL Hgb 10.1 L D (12.0-15.0) g/dL Hct 31.6 L (36.0-48.0) % MCV 93 (80-98) fL MCH 30 (27-31) pg MCHC 32 (32-36) % Plt Count 415 H (150-400) K/uL Neut % (Auto) 74 H (36-66) % Lymph % (Auto) 14 L (24-44) % [place] % (Auto) 10 H (2-6) % Eos % (Auto) 2 (2-4) % Baso % (Auto) 0 (0-1) % Sodium 142 (140-148) mmol/L Potassium 4.0 (3.6-5.2) mmol/L Chloride 108 (100-108) mmol/L Carbon Dioxide 29 (21-32) mmol/L Anion Gap 4.9 L (5.0-14.0) mmol/L BUN 12 (7-18) mg/dL Creatinine 0.7 (0.6-1.0) mg/dL Est Cr Clr Drug Dosing 58.22 mL/min Estimated GFR (MDRD) > 60 (>60) Glucose 94 (74-106) mg/dL Calcium 7.9 L (8.5-10.1) mg/dL Magnesium 2.0 (1.8-2.4) mg/dL Blood Type A POSITIVE Gel Antibody Screen Negative Crossmatch See Detail Med Orders - Current: Current Medications Aspirin (Ecotrin) 325 mg PO BID [facility] Last Admin: 06/13/17 09:47 Dose: Not Given Carbidopa/Levodopa (Sinemet 25-100 Mg) 1 tab PO TIDMEALS [facility] Last Admin: 06/13/17 07:14 Dose: 1 tab Clonazepam (Klonopin) 0.5 mg PO BEDTIME [facility] Last Admin: 06/12/17 21:20 Dose: 0.5 mg Clonazepam (Klonopin) 1 mg PO QAM [facility] Last Admin: 06/13/17 09:47 Dose: 1 mg Hydromorphone HCl (Dilaudid) 0.5 mg IVPUSH Q3H PRN PRN Reason: Pain (moderate 4-6) Last Admin: 06/12/17 07:40 Dose: 0.5 mg Ceftriaxone Sodium 1 gm/ (Sodium Chloride) 50 mls @ 100 mls/hr IV Q24H [facility] Last Admin: 06/12/17 13:28 Dose: 100 mls/hr Lactated Ringer's (Ringers, Lactated) 1,000 mls @ 125 mls/hr IV ASDIRECTED [facility] Last Admin: 06/13/17 10:35 Dose: 125 mls/hr Melatonin (Melatonin) 9 mg PO BEDTIME [facility] Last Admin: 06/12/17 21:19 Dose: 9 mg Ondansetron HCl (Zofran Odt) 4 mg PO Q6H PRN PRN Reason: Nausea able to take PO Polysaccharide Iron Complex (Ferrex 150 Forte) 1 cap PO BIDMEALS [facility] Last Admin: 06/13/17 07:14 Dose: 1 cap Senna/Docusate Sodium (Senna Plus) 1 tab PO BID PRN PRN Reason: Constipation Last Admin: 06/13/17 07:21 Dose: 1 tab Senna/Docusate Sodium (Senna Plus) 1 tab PO DAILY PRN PRN Reason: Constipation Tramadol HCl (Ultram) 50 mg PO Q8H PRN PRN Reason: Pain Last Admin: 06/13/17 07:14 Dose: 50 mg Discontinued Medications Acetaminophen (Tylenol) 650 mg PO NOW ONE Stop: 06/11/17 20:24 Last Admin: 06/11/17 20:34 Dose: 650 mg Bupivacaine HCl/Epinephrine Bitart (Marcaine 0.5%/Epinephrine 1:200,000) Confirm Administered Dose 50 ml .ROUTE .STK-MED ONE Stop: 06/12/17 10:00 Bupivacaine HCl/Epinephrine Bitart (Marcaine 0.5%/Epinephrine 1:200,000) Confirm Administered Dose 50 ml .ROUTE .STK-MED ONE Stop: 06/13/17 11:01 Clonazepam (Klonopin) 0.5 mg PO ONETIME ONE Stop: 06/11/17 22:50 Last Admin: 06/12/17 00:04 Dose: 0.5 mg Fentanyl (Sublimaze) 50 mcg IVPUSH ONETIME ONE Stop: 06/11/17 18:35 Last Admin: 06/11/17 18:48 Dose: 50 mcg Fentanyl (Sublimaze) 50 mcg IVPUSH ONETIME ONE Stop: 06/11/17 20:24 Last Admin: 06/11/17 20:36 Dose: 50 mcg Gentamicin Sulfate (Gentamicin) Confirm Administered Dose 240 mg .ROUTE .STK- MED ONE Stop: 06/12/17 10:00 Gentamicin Sulfate (Gentamicin) Confirm Administered Dose 80 mg .ROUTE .STK-MED ONE Stop: 06/12/17 10:01 Gentamicin Sulfate (Gentamicin) Confirm Administered Dose 240 mg .ROUTE .STK- MED ONE Stop: 06/13/17 11:01 Sodium Chloride (Normal Saline) 1,000 mls @ 125 mls/hr IV ASDIRECTED [facility] Last Admin: 06/12/17 07:39 Dose: 125 mls/hr Povidone Iodine (Betadine 10% Soln) Confirm Administered Dose 1 ml .ROUTE .STK- MED ONE Stop: 06/12/17 10:00 Povidone Iodine (Betadine 10% Soln) Confirm Administered Dose 1 ml .ROUTE .STK- MED ONE Stop: 06/13/17 11:01 - Exam Quality Assessment: Urine Catheter, DVT Prophylaxis General: Alert, Oriented, Cooperative, Mild Distress Lungs: Clear to Auscultation, Normal Respiratory Effort Cardiovascular: Regular Rate, Regular Rhythm, No Murmurs GI/Abdominal Exam: Normal Bowel Sounds, Soft, Non-Tender, No Distention Extremities: No Pedal Edema Skin: Warm, Dry, Intact - Problem List Review Problem List Initiated/Reviewed/Updated: Yes - My Orders Last 24 Hours: My Active Orders 06/12/17 12:07 Docusate Sodium/Sennosides [Senna Plus] 1 tab PO DAILY PRN 06/12/17 13:00 cefTRIAXone [Rocephin] 1 gm Sodium Chloride 0.9% [Normal Saline] 50 ml IV Q24H 06/12/17 17:00 Carbidopa/Levodopa [Sinemet 25-100 mg] 1 tab PO TIDMEALS Iron PS Complex & Vit B12/FA [Ferrex 150 Forte] 1 cap PO BIDMEALS 06/12/17 21:00 Aspirin [Ecotrin] 325 mg PO BID ClonazePAM [KlonoPIN] 0.5 mg PO BEDTIME Melatonin 9 mg PO BEDTIME 06/13/17 09:00 ClonazePAM [KlonoPIN] 1 mg PO QAM 06/13/17 10:30 Lactated Ringers [Ringers, Lactated] 1,000 ml IV ASDIRECTED - Plan Plan:: ASSESSMENT AND PLAN RIGHT HIP FRACTURE AROUND SURGICAL PROSTHESIS- she experienced a fall and fractured bone around previously placed prosthesis. Stable since admission with adequate pain control. -Surgical repair of fractured later today by Dr. Haas -Nothing by mouth -Management per Dr. Leandro Haas URINARY TRACT INFECTION-asymptomatic -Urine culture pending -Rocephin 1 g IV every 24 hours BILATERAL RENAL MASSES-CT urogram obtained during last admission, was consistent with bilateral renal cell carcinoma. On CT scan of the chest as well as CT of the abdomen there is no evidence of metastatic disease or lymph node enlargement. -Will need follow-up with urology after she has recovered from hip fracture Hemoglobin improve following transfusion of 2 units of red blood cells area -Recheck hemoglobin in a.m. 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 Haas -GI prophylaxis; not indicated -Cotter catheter; placement because of recurrent hip fracture -Nutrition; regular diet, nothing by mouth after midnight -Nicotine dependence; not required CODE STATUS-FULL CODE ADMISSION STATUS-patient will be admitted to inpatient status, expect at least a 2 night hospital stay for evaluation and management of problems as outlined above. At the time of this admission I do not reasonably expected evaluation and management of this problem will require more than a 96 hour hospital stay. DISPOSITION-anticipate discharge to home after the hospital stay. PRIMARY CARE PROVIDER-Dr. Tuttle
[2017-06-13] MEDS: cefTRIAXone 1 GM in Sodium Chloride 0.9% 50 ML IV SCH (13:09)
[2017-06-13] MEDS ORDERED: fentaNYL 100 MCG/2 ML SDV ONE (14:27)
[2017-06-13] MEDS ORDERED: Propofol 200 MG/20 ML SDV ONE ×2 (14:27→15:03)
[2017-06-13] MEDS ORDERED: Midazolam 1 MG/ML 2 ML SDV ONE (14:27)
[2017-06-13] MEDS ORDERED: ePHEDrine 50 MG/ML SDV ONE ×2 (14:28→15:37)
[2017-06-13] MEDS ORDERED: Bisacodyl 5 MG Tab PO PRN (16:45)
[2017-06-13] MEDS ORDERED: Acetaminophen/oxyCODONE 325-5 MG Tab PO PRN (16:45)
[2017-06-13] MEDS ORDERED: Aluminum Hydroxide/Magnesium Hydroxide/Simethicone Susp 30 ML Cup PO PRN (16:45)
[2017-06-13] MEDS ORDERED: Docusate Sodium 100 MG Cap PO PRN (16:45)
[2017-06-13] MEDS ORDERED: Sennosides 8.6 MG Tab PO PRN (16:45)
[2017-06-13] MEDS ORDERED: diphenhydrAMINE 50 MG/ML SDV IVPUSH PRN (16:45)
[2017-06-13] MEDS ORDERED: Magnesium Hydroxide 400 MG/5 ML Susp 30 ML Cup PO PRN (16:45)
[2017-06-13] MEDS ORDERED: Morphine 2 MG/ML Syringe IVPUSH PRN (16:45)
[2017-06-13] MEDS ORDERED: Ondansetron 4 MG/2 ML SDV IVPUSH PRN (16:45)
[2017-06-13] MEDS ORDERED: Naloxone 0.4 MG/ML SDV IVPUSH PRN (16:45)
[2017-06-13] MEDS: ceFAZolin 1 GM in Sodium Chloride 0.9% 50 ML IV SCH (17:58)
[2017-06-13] MEDS: Ketorolac 30 MG/ML SDV IVPUSH PRN (19:31)
[2017-06-13] MEDS: HYDROmorphone 0.5 MG/0.5 ML Syringe IVPUSH PRN (19:32)
[2017-06-13] MEDS: ClonazePAM 0.5 MG Tab PO SCH (20:28)
[2017-06-13] MEDS: Melatonin 3 MG Tab PO SCH (20:29)
--- NOTE | 2017-06-13 23:18 | OR ---
DATE OF PROCEDURE: 06/13/2017 PREOPERATIVE DIAGNOSIS: Right type B periprosthetic femoral fracture around right hip hemiarthroplasty. POSTOPERATIVE DIAGNOSIS: Right type B periprosthetic femoral fracture around right hip hemiarthroplasty. PROCEDURE: Cabling of right hip periprosthetic fracture. SURGEON: Perry Haas DO. CODING COORDINATOR: MARGY Roberto. FLUIDS: Lactated Ringer solution. ESTIMATED BLOOD LOSS: 200 mL. COMPLICATIONS: None. SPECIMENS: None. DISCHARGE DISPOSITION: Stable to PACU. HISTORY AND INDICATIONS FOR PROCEDURE: The patient is well known to me. Approximately one and a half weeks ago, we performed a right hip hemiarthroplasty. She did have some vasovagal-type symptoms the day afterwards, was kept in the hospital, and returned to baseline. She was then discharged to the [facility]. On evening, she had fallen at the [facility] on her right lower extremity. She was seen in the Emergency Department, where she was found to have a periprosthetic right hip fracture. We were planning on doing the procedure on Thursday; however, her hemoglobin was very low. Today, it was up above 10, so we decided to go ahead with the procedure. Risks and benefits of the procedure were explained to the patient and her family, and informed consent was obtained. DETAILS OF PROCEDURE: The patient was brought to the Operative Suite by the Anesthesia staff, where spinal anesthesia was administered as well as conscious sedation. She was placed into a left lateral recumbent position on a pegboard. All extremities were found to be well padded and an axillary roll was placed. The right lower extremity was then prepped and draped in a sterile manner. A time-out was called identifying the correct patient, the correct procedure, the correct site, and that antibiotics had been done with an appropriate period of time. I then made an incision, and carried this distally more than it was, so we could cable this, and carried down to the deep fascia. Sutures were removed from the deep fascia, and then the incision was extended through the fascia down to the IT band. The capsular repair was then incised through, and those sutures were removed as well. I could then palpate the fracture. We placed four cables on the proximal aspect of the fracture, and then took a film just to make sure that it was above the position that I thought it was in. I did replace one of those cables for better tensioning. We then placed the distal two cables. These were Synthes titanium cables, done without a plate. This provided good fixation. After this had been accomplished, we copiously irrigated with saline, with pulse lavage, as well as Betadine-infused irrigation, followed by a deep capsular closure with a #5 Ethibond followed by irrigating with iodine again, followed by deep fascial and IT band closure with a #2 running Vicryl, followed by iodine again and followed by 0 Vicryl pops deep in the subcu, followed by 2-0 Vicryl pops superficially, followed by the skin ginette, followed by Adaptic. There was a small area of blister, which had ruptured. We placed the Adaptic over that as well, followed by a sterile dressing. The patient was then removed from the pegboard and turned onto her bed in a supine position, and was taken to the PACU in a stable condition. Perry Haas DO /[id number]
[2017-06-14] MEDS: ceFAZolin 1 GM in Sodium Chloride 0.9% 50 ML IV SCH (00:16)
[2017-06-14] MEDS: Ketorolac 30 MG/ML SDV IVPUSH PRN ×3 (02:55→20:36)
[2017-06-14] MEDS: HYDROmorphone 0.5 MG/0.5 ML Syringe IVPUSH PRN ×2 (02:57→09:32)
[2017-06-14] MEDS: Lactated Ringers 1,000 ML IV SCH (05:21)
[2017-06-14] MEDS: traMADol 50 MG Tab PO PRN (07:36)
[2017-06-14] MEDS: Iron PS Complex & Vit B12/FA Cap PO SCH ×2 (08:30→18:06)
[2017-06-14] MEDS: Acetaminophen/HYDROcodone 325-5 MG Tab PO PRN ×3 (08:30→18:45)
[2017-06-14] MEDS ORDERED: ceFAZolin 1 GM in Premix Bag 1 BAG IV ONE (08:30)
[2017-06-14] MEDS: Carbidopa/Levodopa 25-100 MG Tab PO SCH ×3 (08:30→18:06)
--- NOTE | 2017-06-14 09:09 | PCM.PN ---
- General Info Date of Service: 06/14/17 Functional Status: Reports: Pain Controlled, Tolerating Diet - Review of Systems General: Reports: Weakness. Denies: Fever, Chills Pulmonary: Reports: No Symptoms Cardiovascular: Reports: No Symptoms Gastrointestinal: Reports: No Symptoms Systems Review Comment:: This patient underwent surgical repair of her periprosthetic fracture yesterday by Dr. Leandro Haas. She is been stable during the postoperative period, current pain control is adequate. Vital signs have been stable and she has remained afebrile. - Patient Data Vitals - Most Recent: Last Vital Signs Temp 100.0 F 06/14/17 07:33 Pulse 104 H 06/14/17 07:33 Resp 16 06/14/17 07:33 BP 112/78 06/14/17 07:33 Pulse Ox 98 06/14/17 07:33 Weight - Most Recent: 143 lb 6.4 oz I&O - Last 24 Hours: Intake & Output 06/13/17 06/14/17 06/14/17 22:59 06:59 14:59 Intake Total 100 1635 Output Total 525 Balance 100 1110 Lab Results Last 24 Hours: Laboratory Results - last 24 hr 06/14/17 06/14/17 Range/Units 05:37 05:37 WBC 8.9 (4.5-11.0) K/uL RBC 2.94 L (3.30-5.50) M/uL Hgb 8.7 L (12.0-15.0) g/dL Hct 27.9 L (36.0-48.0) % MCV 95 (80-98) fL MCH 30 (27-31) pg MCHC 31 L (32-36) % Plt Count 392 (150-400) K/uL Neut % (Auto) 86 H (36-66) % Lymph % (Auto) 6 L (24-44) % [place] % (Auto) 8 H (2-6) % Eos % (Auto) 0 L (2-4) % Baso % (Auto) 0 (0-1) % Sodium 141 (140-148) mmol/L Potassium 4.1 (3.6-5.2) mmol/L Chloride 105 (100-108) mmol/L Carbon Dioxide 30 (21-32) mmol/L Anion Gap 5.9 (5.0-14.0) mmol/L BUN 11 (7-18) mg/dL Creatinine 0.6 (0.6-1.0) mg/dL Est Cr Clr Drug Dosing 74.18 mL/min Estimated GFR (MDRD) > 60 (>60) Glucose 114 H (74-106) mg/dL Calcium 8.0 L (8.5-10.1) mg/dL Total Bilirubin 0.6 (0.2-1.0) mg/dL AST 25 (15-37) U/L ALT 15 (12-78) U/L Alkaline Phosphatase 85 (46-116) U/L Total Protein 5.7 L (6.4-8.2) g/dL Albumin 1.9 L (3.4-5.0) g/dL Globulin 3.8 H (2.3-3.5) g/dL Albumin/Globulin Ratio 0.5 L (1.2-2.2) Med Orders - Current: Current Medications Hydrocodone Bitart/Acetaminophen ([place] 325-5 Mg) 1 - 2 tab PO Q4H PRN PRN Reason: Pain Last Admin: 06/14/17 08:30 Dose: 2 tab Al Hydroxide/Mg Hydroxide (Mag-Al Plus) 30 ml PO Q4H PRN PRN Reason: Constipation Aspirin (Ecotrin) 325 mg PO BID [facility] Last Admin: 06/13/17 20:29 Dose: 325 mg Bisacodyl (Dulcolax) 10 mg PO DAILY PRN PRN Reason: Constipation Carbidopa/Levodopa (Sinemet 25-100 Mg) 1 tab PO TIDMEALS [facility] Last Admin: 06/14/17 08:30 Dose: 1 tab Clonazepam (Klonopin) 0.5 mg PO BEDTIME [facility] Last Admin: 06/13/17 20:28 Dose: 0.5 mg Clonazepam (Klonopin) 1 mg PO QAM [facility] Last Admin: 06/13/17 09:47 Dose: 1 mg Diazepam (Valium) 5 mg IVPUSH Q6H PRN PRN Reason: Spasms Diphenhydramine HCl (Benadryl) 25 mg IVPUSH Q4H PRN PRN Reason: Itching Docusate Sodium (Colace) 100 mg PO BID PRN PRN Reason: Constipation Hydromorphone HCl (Dilaudid) 0.5 mg IVPUSH Q3H PRN PRN Reason: Pain (moderate 4-6) Last Admin: 06/14/17 02:57 Dose: 0.5 mg Ceftriaxone Sodium 1 gm/ (Sodium Chloride) 50 mls @ 100 mls/hr IV Q24H [facility] Last Admin: 06/13/17 13:09 Dose: 100 mls/hr Lactated Ringer's (Ringers, Lactated) 1,000 mls @ 50 mls/hr IV ASDIRECTED [facility] Ketorolac Tromethamine (Toradol) 15 mg IVPUSH Q8H PRN PRN Reason: Pain Stop: 06/18/17 16:45 Last Admin: 06/14/17 02:55 Dose: 15 mg Magnesium Hydroxide (Milk Of Magnesia) 30 ml PO BID PRN PRN Reason: Constipation Melatonin (Melatonin) 9 mg PO BEDTIME [facility] Last Admin: 06/13/17 20:29 Dose: 9 mg Morphine Sulfate (Morphine) 2 mg IVPUSH Q2H PRN PRN Reason: Pain Last Admin: 06/13/17 18:46 Dose: 2 mg Ondansetron HCl (Zofran Odt) 4 mg PO Q6H PRN PRN Reason: Nausea able to take PO Ondansetron HCl (Zofran) 8 mg IVPUSH Q4H PRN PRN Reason: Nausea/Vomiting Polysaccharide Iron Complex (Ferrex 150 Forte) 1 cap PO BIDMEALS [facility] Last Admin: 06/14/17 08:30 Dose: 1 cap Senna (Senna) 8.6 mg PO BID PRN PRN Reason: Constipation Senna/Docusate Sodium (Senna Plus) 1 tab PO BID PRN PRN Reason: Constipation Last Admin: 06/14/17 07:36 Dose: 1 tab Senna/Docusate Sodium (Senna Plus) 1 tab PO DAILY PRN PRN Reason: Constipation Sodium Chloride (Saline Flush) 10 ml FLUSH DAILY [facility] Tramadol HCl (Ultram) 50 mg PO Q8H PRN PRN Reason: Pain Last Admin: 06/14/17 07:36 Dose: 50 mg Discontinued Medications Acetaminophen (Tylenol) 650 mg PO NOW ONE Stop: 06/11/17 20:24 Last Admin: 06/11/17 20:34 Dose: 650 mg Bupivacaine HCl/Epinephrine Bitart ([place] 0.5%/Epinephrine 1:200,000) Confirm Administered Dose 50 ml .ROUTE .[facility] ONE Stop: 06/12/17 10:00 Bupivacaine HCl/Epinephrine Bitart ([place] 0.5%/Epinephrine 1:200,000) Confirm Administered Dose 50 ml .ROUTE .[facility] ONE Stop: 06/13/17 11:01 Last Admin: 06/13/17 15:19 Dose: 30 ml Clonazepam (Klonopin) 0.5 mg PO ONETIME ONE Stop: 06/11/17 22:50 Last Admin: 06/12/17 00:04 Dose: 0.5 mg Ephedrine Sulfate (Ephedrine Sulfate) Confirm Administered Dose 50 mg .ROUTE .[facility] ONE Stop: 06/13/17 14:29 Ephedrine Sulfate (Ephedrine Sulfate) Confirm Administered Dose 50 mg .ROUTE .[facility] ONE Stop: 06/13/17 15:38 Fentanyl (Sublimaze) 50 mcg IVPUSH ONETIME ONE Stop: 06/11/17 18:35 Last Admin: 06/11/17 18:48 Dose: 50 mcg Fentanyl (Sublimaze) 50 mcg IVPUSH ONETIME ONE Stop: 06/11/17 20:24 Last Admin: 06/11/17 20:36 Dose: 50 mcg Fentanyl (Sublimaze) Confirm Administered Dose 100 mcg .ROUTE .[facility] ONE Stop: 06/13/17 14:28 Gentamicin Sulfate (Gentamicin) Confirm Administered Dose [address] .[facility] ONE Stop: 06/12/17 10:00 Gentamicin Sulfate (Gentamicin) Confirm Administered Dose 80 mg .ROUTE .[facility] ONE Stop: 06/12/17 10:01 Gentamicin Sulfate (Gentamicin) Confirm Administered Dose [address] ONE Stop: 06/13/17 11:01 Last Admin: 06/13/17 16:28 Dose: 240 mg Sodium Chloride (Normal Saline) 1,000 mls @ 125 mls/hr IV ASDIRECTED [facility] Last Admin: 06/12/17 07:39 Dose: 125 mls/hr Lactated Ringer's (Ringers, Lactated) 1,000 mls @ 125 mls/hr IV ASDIRECTED [facility] Last Admin: 06/14/17 05:21 Dose: 125 mls/hr Cefazolin Sodium 1 gm/ Sodium (Chloride) 50 mls @ 100 mls/hr IV Q8H [facility] Stop: 06/14/17 09:29 Last Admin: 06/14/17 00:16 Dose: 100 mls/hr Cefazolin Sodium/Dextrose 1 gm (/ Premix) 50 mls @ 100 mls/hr IV ONETIME ONE Stop: 06/14/17 08:59 Last Admin: 06/14/17 08:32 Dose: 100 mls/hr Midazolam HCl (Versed 1 Mg/Ml) Confirm Administered Dose 2 mg .ROUTE .[facility] ONE Stop: 06/13/17 14:28 Naloxone HCl (Narcan) 0.1 mg IVPUSH ONETIME PRN PRN Reason: Oversedation Stop: 06/13/17 16:46 Oxycodone/Acetaminophen (Percocet 325-5 Mg) 1 tab PO Q4H PRN PRN Reason: Pain Povidone Iodine (Betadine 10% Soln) Confirm Administered Dose 1 ml .ROUTE .[facility] ONE Stop: 06/12/17 10:00 Povidone Iodine (Betadine 10% Soln) Confirm Administered Dose 1 ml .ROUTE .[facility] ONE Stop: 06/13/17 11:01 Last Admin: 06/13/17 15:20 Dose: 20 ml Propofol (Diprivan 20 Ml) Confirm Administered Dose 200 mg .ROUTE .[facility] ONE Stop: 06/13/17 14:28 Propofol (Diprivan 20 Ml) Confirm Administered Dose 200 mg .ROUTE .[facility] ONE Stop: 06/13/17 15:04 - Exam Quality Assessment: Urine Catheter, DVT Prophylaxis General: Alert, Oriented, Cooperative, Mild Distress Lungs: Clear to Auscultation, Normal Respiratory Effort Cardiovascular: Regular Rate, Regular Rhythm, No Murmurs GI/Abdominal Exam: Normal Bowel Sounds, Soft, Non-Tender, No Distention Skin: Warm, Dry, Intact - Problem List Review Problem List Initiated/Reviewed/Updated: Yes - My Orders Last 24 Hours: My Active Orders 06/13/17 09:00 ClonazePAM [KlonoPIN] 1 mg PO QAM 06/14/17 09:15 Lactated Ringers [Ringers, Lactated] 1,000 ml IV ASDIRECTED - Plan Plan:: ASSESSMENT AND PLAN RIGHT HIP FRACTURE AROUND SURGICAL PROSTHESIS- she experienced a fall and fractured bone around previously placed prosthesis. Stable since surgery with adequate pain control. -Postop cares per Dr. Haas -Decrease IV rate to 50 mL/h URINARY TRACT INFECTION-asymptomatic -Urine culture pending -Rocephin 1 g IV every 24 hours BILATERAL RENAL MASSES-CT urogram obtained during last admission, was consistent with bilateral renal cell carcinoma. On CT scan of the chest as well as CT of the abdomen there is no evidence of metastatic disease or lymph node enlargement. -Will need follow-up with urology after she has recovered from hip fracture ANEMIA -hemoglobin has decreased since surgery -Recheck hemoglobin in a.m. 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 Haas -GI prophylaxis; not indicated -Cotter catheter; placement because of recurrent hip fracture -Nutrition; regular diet, nothing by mouth after midnight -Nicotine dependence; not required CODE STATUS-FULL CODE ADMISSION STATUS-patient will be admitted to inpatient status, expect at least a 2 night hospital stay for evaluation and management of problems as outlined above. At the time of this admission I do not reasonably expected evaluation and management of this problem will require more than a 96 hour hospital stay. DISPOSITION-anticipate discharge to home after the hospital stay. PRIMARY CARE PROVIDER-Dr. Tuttle
[2017-06-14] MEDS ORDERED: Lactated Ringers 1,000 ML IV SCH (09:15)
[2017-06-14] MEDS: Sodium Chloride 0.9% 10 ML Syringe FLUSH SCH (09:29)
[2017-06-14] MEDS: ClonazePAM 1 MG Tab PO SCH (09:32)
[2017-06-14] MEDS: Aspirin 325 MG Tab.EC PO SCH ×2 (09:32→20:37)
[2017-06-14] MEDS ORDERED: Lactated Ringers 500 ML IV ONE (11:30)
[2017-06-14] MEDS: cefTRIAXone 1 GM in Sodium Chloride 0.9% 50 ML IV SCH (13:46)
--- NOTE | 2017-06-14 14:34 | PCM.PN ---
- General Info Date of Service: 06/14/17 Admission Dx/Problem (Free Text): Mariama is a pleasant 82 year old female who is status pod 1 of a left hip wiring due to a recent fall and fracturing her recent hemiarthroplasty. Family is present and are concerned about her drowsiness. Patients notes that her pain is controlled at this time. Functional Status: Reports: Pain Controlled, Tolerating Diet, Incentive Spirometry - Patient Data Vitals - Most Recent: Last Vital Signs Temp 37.7 C 06/14/17 11:04 Pulse 94 06/14/17 12:20 Resp 18 06/14/17 11:04 BP 104/61 06/14/17 12:20 Pulse Ox 94 L 06/14/17 12:48 Weight - Most Recent: 143 lb 6.4 oz I&O - Last 24 Hours: Intake & Output 06/13/17 06/14/17 06/14/17 22:59 06:59 14:59 Intake Total 100 1635 840 Output Total 525 Balance 100 1110 840 Lab Results Last 24 Hours: Laboratory Results - last 24 hr 06/14/17 06/14/17 Range/Units 05:37 05:37 WBC 8.9 (4.5-11.0) K/uL RBC 2.94 L (3.30-5.50) M/uL Hgb 8.7 L (12.0-15.0) g/dL Hct 27.9 L (36.0-48.0) % MCV 95 (80-98) fL MCH 30 (27-31) pg MCHC 31 L (32-36) % Plt Count 392 (150-400) K/uL Neut % (Auto) 86 H (36-66) % Lymph % (Auto) 6 L (24-44) % [place] % (Auto) 8 H (2-6) % Eos % (Auto) 0 L (2-4) % Baso % (Auto) 0 (0-1) % Sodium 141 (140-148) mmol/L Potassium 4.1 (3.6-5.2) mmol/L Chloride 105 (100-108) mmol/L Carbon Dioxide 30 (21-32) mmol/L Anion Gap 5.9 (5.0-14.0) mmol/L BUN 11 (7-18) mg/dL Creatinine 0.6 (0.6-1.0) mg/dL Est Cr Clr Drug Dosing 74.18 mL/min Estimated GFR (MDRD) > 60 (>60) Glucose 114 H (74-106) mg/dL Calcium 8.0 L (8.5-10.1) mg/dL Total Bilirubin 0.6 (0.2-1.0) mg/dL AST 25 (15-37) U/L ALT 15 (12-78) U/L Alkaline Phosphatase 85 (46-116) U/L Total Protein 5.7 L (6.4-8.2) g/dL Albumin 1.9 L (3.4-5.0) g/dL Globulin 3.8 H (2.3-3.5) g/dL Albumin/Globulin Ratio 0.5 L (1.2-2.2) Med Orders - Current: Current Medications Hydrocodone Bitart/Acetaminophen ([place] 325-5 Mg) 1 - 2 tab PO Q4H PRN PRN Reason: Pain Last Admin: 06/14/17 12:16 Dose: 2 tab Al Hydroxide/Mg Hydroxide (Mag-Al Plus) 30 ml PO Q4H PRN PRN Reason: Constipation Aspirin (Ecotrin) 325 mg PO BID [facility] Last Admin: 06/14/17 09:32 Dose: 325 mg Bisacodyl (Dulcolax) 10 mg PO DAILY PRN PRN Reason: Constipation Carbidopa/Levodopa (Sinemet 25-100 Mg) 1 tab PO TIDMEALS [facility] Last Admin: 06/14/17 12:16 Dose: 1 tab Clonazepam (Klonopin) 0.5 mg PO BEDTIME [facility] Last Admin: 06/13/17 20:28 Dose: 0.5 mg Clonazepam (Klonopin) 1 mg PO QAM [facility] Last Admin: 06/14/17 09:32 Dose: 1 mg Diazepam (Valium) 5 mg IVPUSH Q6H PRN PRN Reason: Spasms Diphenhydramine HCl (Benadryl) 25 mg IVPUSH Q4H PRN PRN Reason: Itching Docusate Sodium (Colace) 100 mg PO BID PRN PRN Reason: Constipation Hydromorphone HCl (Dilaudid) 0.5 mg IVPUSH Q3H PRN PRN Reason: Pain (moderate 4-6) Last Admin: 06/14/17 09:32 Dose: 0.5 mg Ceftriaxone Sodium 1 gm/ (Sodium Chloride) 50 mls @ 100 mls/hr IV Q24H [facility] Last Admin: 06/14/17 13:46 Dose: 100 mls/hr Lactated Ringer's (Ringers, Lactated) 1,000 mls @ 50 mls/hr IV ASDIRECTED [facility] Ketorolac Tromethamine (Toradol) 15 mg IVPUSH Q8H PRN PRN Reason: Pain Stop: 06/18/17 16:45 Last Admin: 06/14/17 11:01 Dose: 15 mg Magnesium Hydroxide (Milk Of Magnesia) 30 ml PO BID PRN PRN Reason: Constipation Melatonin (Melatonin) 9 mg PO BEDTIME [facility] Last Admin: 06/13/17 20:29 Dose: 9 mg Morphine Sulfate (Morphine) 2 mg IVPUSH Q2H PRN PRN Reason: Pain Last Admin: 06/13/17 18:46 Dose: 2 mg Ondansetron HCl (Zofran Odt) 4 mg PO Q6H PRN PRN Reason: Nausea able to take PO Ondansetron HCl (Zofran) 8 mg IVPUSH Q4H PRN PRN Reason: Nausea/Vomiting Polysaccharide Iron Complex (Ferrex 150 Forte) 1 cap PO BIDMEALS [facility] Last Admin: 06/14/17 08:30 Dose: 1 cap Senna (Senna) 8.6 mg PO BID PRN PRN Reason: Constipation Senna/Docusate Sodium (Senna Plus) 1 tab PO BID PRN PRN Reason: Constipation Last Admin: 06/14/17 07:36 Dose: 1 tab Senna/Docusate Sodium (Senna Plus) 1 tab PO DAILY PRN PRN Reason: Constipation Sodium Chloride (Saline Flush) 10 ml FLUSH DAILY [facility] Last Admin: 06/14/17 09:29 Dose: Not Given Tramadol HCl (Ultram) 50 mg PO Q8H PRN PRN Reason: Pain Last Admin: 06/14/17 07:36 Dose: 50 mg Discontinued Medications Acetaminophen (Tylenol) 650 mg PO NOW ONE Stop: 06/11/17 20:24 Last Admin: 06/11/17 20:34 Dose: 650 mg Bupivacaine HCl/Epinephrine Bitart ([place] 0.5%/Epinephrine 1:200,000) Confirm Administered Dose 50 ml .ROUTE .[facility] ONE Stop: 06/12/17 10:00 Bupivacaine HCl/Epinephrine Bitart ([place] 0.5%/Epinephrine 1:200,000) Confirm Administered Dose 50 ml .ROUTE .[facility] ONE Stop: 06/13/17 11:01 Last Admin: 06/13/17 15:19 Dose: 30 ml Clonazepam (Klonopin) 0.5 mg PO ONETIME ONE Stop: 06/11/17 22:50 Last Admin: 06/12/17 00:04 Dose: 0.5 mg Ephedrine Sulfate (Ephedrine Sulfate) Confirm Administered Dose 50 mg .ROUTE .[facility] ONE Stop: 06/13/17 14:29 Ephedrine Sulfate (Ephedrine Sulfate) Confirm Administered Dose 50 mg .ROUTE .[facility] ONE Stop: 06/13/17 15:38 Fentanyl (Sublimaze) 50 mcg IVPUSH ONETIME ONE Stop: 06/11/17 18:35 Last Admin: 06/11/17 18:48 Dose: 50 mcg Fentanyl (Sublimaze) 50 mcg IVPUSH ONETIME ONE Stop: 06/11/17 20:24 Last Admin: 06/11/17 20:36 Dose: 50 mcg Fentanyl (Sublimaze) Confirm Administered Dose 100 mcg .ROUTE .[facility] ONE Stop: 06/13/17 14:28 Gentamicin Sulfate (Gentamicin) Confirm Administered Dose 240 mg .ROUTE .[facility] ONE Stop: 06/12/17 10:00 Gentamicin Sulfate (Gentamicin) Confirm Administered Dose 80 mg .ROUTE .[facility] ONE Stop: 06/12/17 10:01 Gentamicin Sulfate (Gentamicin) Confirm Administered Dose 240 mg .ROUTE .[facility] ONE Stop: 06/13/17 11:01 Last Admin: 06/13/17 16:28 Dose: 240 mg Sodium Chloride (Normal Saline) 1,000 mls @ 125 mls/hr IV ASDIRECTED [facility] Last Admin: 06/12/17 07:39 Dose: 125 mls/hr Lactated Ringer's (Ringers, Lactated) 1,000 mls @ 125 mls/hr IV ASDIRECTED [facility] Last Admin: 06/14/17 05:21 Dose: 125 mls/hr Cefazolin Sodium 1 gm/ Sodium (Chloride) 50 mls @ 100 mls/hr IV Q8H [facility] Stop: 06/14/17 09:29 Last Admin: 06/14/17 00:16 Dose: 100 mls/hr Cefazolin Sodium/Dextrose 1 gm (/ Premix) 50 mls @ 100 mls/hr IV ONETIME ONE Stop: 06/14/17 08:59 Last Admin: 06/14/17 08:32 Dose: 100 mls/hr Lactated Ringer's (Ringers, Lactated) 500 mls @ 500 mls/hr IV .[facility] ONE Stop: 06/14/17 12:29 Last Admin: 06/14/17 11:22 Dose: 500 mls/hr Midazolam HCl (Versed 1 Mg/Ml) Confirm Administered Dose 2 mg .ROUTE .[facility] ONE Stop: 06/13/17 14:28 Naloxone HCl (Narcan) 0.1 mg IVPUSH ONETIME PRN PRN Reason: Oversedation Stop: 06/13/17 16:46 Oxycodone/Acetaminophen (Percocet 325-5 Mg) 1 tab PO Q4H PRN PRN Reason: Pain Povidone Iodine (Betadine 10% Soln) Confirm Administered Dose 1 ml .ROUTE .[facility] ONE Stop: 06/12/17 10:00 Povidone Iodine (Betadine 10% Soln) Confirm Administered Dose 1 ml .ROUTE .[facility] ONE Stop: 06/13/17 11:01 Last Admin: 06/13/17 15:20 Dose: 20 ml Propofol (Diprivan 20 Ml) Confirm Administered Dose 200 mg .ROUTE .[facility] ONE Stop: 06/13/17 14:28 Propofol (Diprivan 20 Ml) Confirm Administered Dose 200 mg .ROUTE .[facility] ONE Stop: 06/13/17 15:04 - Exam General: Alert, Oriented Extremities: Normal Inspection, Normal Capillary Refill Skin: Warm, Dry, Intact Wound/Incisions: Healing Well, Dressing Dry and Intact, No Drainage Neurological: No New Focal Deficit Psy/Mental Status: Alert - Problem List Review Problem List Initiated/Reviewed/Updated: Yes - My Orders Last 24 Hours: My Active Orders 06/13/17 16:45 Ambulate [RC] QID May Shower [RC] ASDIRECTED Neurovascular Check [RC] Q4HR Notify Provider Consults [RC] ASDIRECTED RT Incentive Spirometry [RC] Q2HWA Up to Chair [RC] QID Wound Care [RC] Q12H Consult to Physician [CONS] Routine OT Evaluation and Treatment [CONS] Routine PT Evaluation and Treatment [CONS] Routine Alum Hydrox/Mag Hydrox/Simeth [Mag-Al Plus] 30 ml PO Q4H PRN Bisacodyl [Dulcolax] 10 mg PO DAILY PRN Diazepam [Valium] 5 mg IVPUSH Q6H PRN Docusate Sodium [Colace] 100 mg PO BID PRN Ketorolac [Toradol] 15 mg IVPUSH Q8H PRN Magnesium Hydroxide [Milk of Magnesia] 30 ml PO BID PRN Morphine 2 mg IVPUSH Q2H PRN Ondansetron [Zofran] 8 mg IVPUSH Q4H PRN Sennosides [Senna] 8.6 mg PO BID PRN diphenhydrAMINE [Benadryl] 25 mg IVPUSH Q4H PRN Ice Therapy [OM.PC] PER UNIT ROUTINE 06/13/17 Dinner Advance Diet Instructions [DIET] 06/14/17 07:27 Acetaminophen/HYDROcodone [[place] 325-5 MG] 1 - 2 tab PO Q4H PRN 06/14/17 09:00 Sodium Chloride 0.9% [Saline Flush] 10 ml FLUSH DAILY 06/14/17 16:45 Ice Therapy [OM.PC] PER UNIT ROUTINE 06/15/17 05:15 CBC WITH AUTO DIFF [HEME] DAILY COMPREHENSIVE METABOLIC PN,CMP [CHEM] DAILY 06/16/17 05:15 CBC WITH AUTO DIFF [HEME] DAILY COMPREHENSIVE METABOLIC PN,CMP [CHEM] DAILY 06/17/17 05:15 CBC WITH AUTO DIFF [HEME] DAILY COMPREHENSIVE METABOLIC PN,CMP [CHEM] DAILY - Plan Plan:: ASSESSMENT AND PLAN RIGHT HIP FRACTURE AROUND SURGICAL PROSTHESIS- Patient is doing well. Her pain is under control with oral norco. She is pivoting with 2 assist to transfer. Dressing was done and incision is clean dry and intact. No secondary signs of infection. Patient is very drowsy. I will dc the dilaudid at this time. I encouraged staff to use norco and toradol as prescribed.
[2017-06-14] MEDS: Sodium Chloride 0.9% 1,000 ML IV SCH ×2 (16:27→22:37)
[2017-06-14] MEDS: ClonazePAM 0.5 MG Tab PO SCH (20:37)
[2017-06-14] MEDS: Melatonin 3 MG Tab PO SCH (20:37)
--- NOTE | 2017-06-15 08:31 | CR ---
Hip Min 2V or 3V w Pelvis Rt INDICATION: POST OP COMPARISON: Exam same day. FINDINGS: 4 views. Postoperative changes right hip arthroplasty. Cerclage wires over the femoral st em. Alignment anatomic. No acute bony abnormalities seen. Skin ginette. IMPRESSION: Right hip arthroplasty in good position.
[2017-06-15] MEDS: Sodium Chloride 0.9% 1,000 ML IV SCH (08:58)
[2017-06-15] MEDS: Iron PS Complex & Vit B12/FA Cap PO SCH ×2 (08:59→19:05)
[2017-06-15] MEDS: Carbidopa/Levodopa 25-100 MG Tab PO SCH ×3 (08:59→19:05)
[2017-06-15] MEDS: Aspirin 325 MG Tab.EC PO SCH ×2 (09:00→20:22)
[2017-06-15] MEDS: ClonazePAM 1 MG Tab PO SCH (09:07)
[2017-06-15] MEDS: traMADol 50 MG Tab PO PRN ×2 (09:29→17:35)
[2017-06-15] MEDS: Sodium Chloride 0.9% 10 ML Syringe FLUSH SCH (09:31)
--- NOTE | 2017-06-15 09:55 | PCM.PN ---
- General Info Date of Service: 06/15/17 Functional Status: Denies: Pain Controlled - Review of Systems General: Reports: Weakness Pulmonary: Denies: Shortness of Breath Musculoskeletal: Reports: Leg Pain Neurological: Reports: Other (somnolent ) Systems Review Comment:: no acute events overnight and patient reports she slept fairly well. She is a little bit more alert and interactive today after sleeping much of the day yesterday. No pain while she's resting in bed but severe pain anytime she tries to transfer. She requires the assist of 2 people a great deal of effort to get from the bed to the chair. She has not had any fevers. She does have mild lower extremity edema today. No evidence for obvious source of bleeding at this time. Hemoglobin relatively stable at 7.9. Urine culture grew out Pseudomonas. - Patient Data Vitals - Most Recent: Last Vital Signs Temp 37.3 C 06/15/17 07:15 Pulse 93 06/15/17 07:15 Resp 10 L 06/15/17 07:15 BP 116/73 06/15/17 07:15 Pulse Ox 99 06/15/17 07:34 Weight - Most Recent: 64 kg I&O - Last 24 Hours: Intake & Output 06/14/17 06/15/17 06/15/17 22:59 06:59 14:59 Intake Total 1120 1259 Output Total 325 750 Balance 795 509 Lab Results Last 24 Hours: Laboratory Results - last 24 hr 06/15/17 06/15/17 Range/Units 05:30 05:30 WBC 11.4 H (4.5-11.0) K/uL RBC 2.70 L (3.30-5.50) M/uL Hgb 7.9 L (12.0-15.0) g/dL Hct 25.9 L (36.0-48.0) % MCV 96 (80-98) fL MCH 29 (27-31) pg MCHC 31 L (32-36) % Plt Count 352 (150-400) K/uL Neut % (Auto) 84 H (36-66) % Lymph % (Auto) 8 L (24-44) % [place] % (Auto) 6 (2-6) % Eos % (Auto) 2 (2-4) % Baso % (Auto) 0 (0-1) % Sodium 141 (140-148) mmol/L Potassium 4.4 (3.6-5.2) mmol/L Chloride 106 (100-108) mmol/L Carbon Dioxide 32 (21-32) mmol/L Anion Gap 2.6 L (5.0-14.0) mmol/L BUN 14 (7-18) mg/dL Creatinine 0.7 (0.6-1.0) mg/dL Est Cr Clr Drug Dosing 63.58 mL/min Estimated GFR (MDRD) > 60 (>60) Glucose 101 (74-106) mg/dL Calcium 7.9 L (8.5-10.1) mg/dL Total Bilirubin 0.3 (0.2-1.0) mg/dL AST 23 (15-37) U/L ALT 14 (12-78) U/L Alkaline Phosphatase 78 (46-116) U/L Total Protein 5.5 L (6.4-8.2) g/dL Albumin 1.9 L (3.4-5.0) g/dL Globulin 3.6 H (2.3-3.5) g/dL Albumin/Globulin Ratio 0.5 L (1.2-2.2) Med Orders - Current: Current Medications Acetaminophen (Tylenol Extra Strength) 1,000 mg PO TID [facility] Al Hydroxide/Mg Hydroxide (Mag-Al Plus) 30 ml PO Q4H PRN PRN Reason: Constipation Aspirin (Ecotrin) 325 mg PO BID [facility] Last Admin: 06/15/17 09:00 Dose: 325 mg Bisacodyl (Dulcolax) 10 mg PO DAILY PRN PRN Reason: Constipation Carbidopa/Levodopa (Sinemet 25-100 Mg) 1 tab PO TIDMEALS [facility] Last Admin: 06/15/17 08:59 Dose: 1 tab Ciprofloxacin (Ciprofloxacin Hcl) 500 mg PO Q12H [facility] Clonazepam (Klonopin) 0.5 mg PO BEDTIME [facility] Last Admin: 06/14/17 20:37 Dose: 0.5 mg Clonazepam (Klonopin) 1 mg PO QAM [facility] Last Admin: 06/15/17 09:07 Dose: 1 mg Diazepam (Valium) 2.5 mg IVPUSH Q6H PRN PRN Reason: Spasms Diphenhydramine HCl (Benadryl) 25 mg IVPUSH Q4H PRN PRN Reason: Itching Ketorolac Tromethamine (Toradol) 15 mg IVPUSH Q8H PRN PRN Reason: Pain Stop: 06/18/17 16:45 Last Admin: 06/14/17 20:36 Dose: 15 mg Magnesium Hydroxide (Milk Of Magnesia) 30 ml PO BID PRN PRN Reason: Constipation Last Admin: 06/14/17 14:36 Dose: 30 ml Melatonin (Melatonin) 9 mg PO BEDTIME [facility] Last Admin: 06/14/17 20:37 Dose: 9 mg Morphine Sulfate (Morphine) 2 mg IVPUSH Q2H PRN PRN Reason: Pain Last Admin: 06/13/17 18:46 Dose: 2 mg Ondansetron HCl (Zofran Odt) 4 mg PO Q6H PRN PRN Reason: Nausea able to take PO Polysaccharide Iron Complex (Ferrex 150 Forte) 1 cap PO BIDMEALS [facility] Last Admin: 06/15/17 08:59 Dose: 1 cap Senna (Senna) 8.6 mg PO BID PRN PRN Reason: Constipation Senna/Docusate Sodium (Senna Plus) 1 tab PO DAILY PRN PRN Reason: Constipation Sodium Chloride (Saline Flush) 10 ml FLUSH DAILY [facility] Last Admin: 06/15/17 09:31 Dose: Not Given Tramadol HCl (Ultram) 50 mg PO Q8H PRN PRN Reason: Pain Last Admin: 06/15/17 09:29 Dose: 50 mg Discontinued Medications Acetaminophen (Tylenol) 650 mg PO NOW ONE Stop: 06/11/17 20:24 Last Admin: 06/11/17 20:34 Dose: 650 mg Hydrocodone Bitart/Acetaminophen ([place] 325-5 Mg) 1 - 2 tab PO Q4H PRN PRN Reason: Pain Last Admin: 06/14/17 18:45 Dose: 2 tab Bupivacaine HCl/Epinephrine Bitart ([place] 0.5%/Epinephrine 1:200,000) Confirm Administered Dose 50 ml .ROUTE .STK-MED ONE Stop: 06/12/17 10:00 Bupivacaine HCl/Epinephrine Bitart ([place] 0.5%/Epinephrine 1:200,000) Confirm Administered Dose 50 ml .ROUTE .STK-MED ONE Stop: 06/13/17 11:01 Last Admin: 06/13/17 15:19 Dose: 30 ml Clonazepam (Klonopin) 0.5 mg PO ONETIME ONE Stop: 06/11/17 22:50 Last Admin: 06/12/17 00:04 Dose: 0.5 mg Diazepam (Valium) 5 mg IVPUSH Q6H PRN PRN Reason: Spasms Docusate Sodium (Colace) 100 mg PO BID PRN PRN Reason: Constipation Ephedrine Sulfate (Ephedrine Sulfate) Confirm Administered Dose 50 mg .ROUTE .STK-MED ONE Stop: 06/13/17 14:29 Ephedrine Sulfate (Ephedrine Sulfate) Confirm Administered Dose 50 mg .ROUTE .STK-MED ONE Stop: 06/13/17 15:38 Fentanyl (Sublimaze) 50 mcg IVPUSH ONETIME ONE Stop: 06/11/17 18:35 Last Admin: 06/11/17 18:48 Dose: 50 mcg Fentanyl (Sublimaze) 50 mcg IVPUSH ONETIME ONE Stop: 06/11/17 20:24 Last Admin: 06/11/17 20:36 Dose: 50 mcg Fentanyl (Sublimaze) Confirm Administered Dose 100 mcg .ROUTE .STK-MED ONE Stop: 06/13/17 14:28 Gentamicin Sulfate (Gentamicin) Confirm Administered Dose 240 mg .ROUTE .STK- MED ONE Stop: 06/12/17 10:00 Gentamicin Sulfate (Gentamicin) Confirm Administered Dose 80 mg .ROUTE .STK-MED ONE Stop: 06/12/17 10:01 Gentamicin Sulfate (Gentamicin) Confirm Administered Dose 240 mg .ROUTE .STK- MED ONE Stop: 06/13/17 11:01 Last Admin: 06/13/17 16:28 Dose: 240 mg Hydromorphone HCl (Dilaudid) 0.5 mg IVPUSH Q3H PRN PRN Reason: Pain (moderate 4-6) Last Admin: 06/14/17 09:32 Dose: 0.5 mg Sodium Chloride (Normal Saline) 1,000 mls @ 125 mls/hr IV ASDIRECTED [facility] Last Admin: 06/12/17 07:39 Dose: 125 mls/hr Ceftriaxone Sodium 1 gm/ (Sodium Chloride) 50 mls @ 100 mls/hr IV Q24H [facility] Last Admin: 06/14/17 13:46 Dose: 100 mls/hr Lactated Ringer's (Ringers, Lactated) 1,000 mls @ 125 mls/hr IV ASDIRECTED [facility] Last Admin: 06/14/17 05:21 Dose: 125 mls/hr Cefazolin Sodium 1 gm/ Sodium (Chloride) 50 mls @ 100 mls/hr IV Q8H [facility] Stop: 06/14/17 09:29 Last Admin: 06/14/17 00:16 Dose: 100 mls/hr Cefazolin Sodium/Dextrose 1 gm (/ Premix) 50 mls @ 100 mls/hr IV ONETIME ONE Stop: 06/14/17 08:59 Last Admin: 06/14/17 08:32 Dose: 100 mls/hr Lactated Ringer's (Ringers, Lactated) 1,000 mls @ 50 mls/hr IV ASDIRECTED [facility] Lactated Ringer's (Ringers, Lactated) 500 mls @ 500 mls/hr IV .BOLUS ONE Stop: 06/14/17 12:29 Last Admin: 06/14/17 11:22 Dose: 500 mls/hr Sodium Chloride (Normal Saline) 1,000 mls @ 100 mls/hr IV ASDIRECTED [facility] Last Admin: 06/15/17 08:58 Dose: 100 mls/hr Midazolam HCl (Versed 1 Mg/Ml) Confirm Administered Dose 2 mg .ROUTE .STK-MED ONE Stop: 06/13/17 14:28 Naloxone HCl (Narcan) 0.1 mg IVPUSH ONETIME PRN PRN Reason: Oversedation Stop: 06/13/17 16:46 Ondansetron HCl (Zofran) 8 mg IVPUSH Q4H PRN PRN Reason: Nausea/Vomiting Oxycodone/Acetaminophen (Percocet 325-5 Mg) 1 tab PO Q4H PRN PRN Reason: Pain Povidone Iodine (Betadine 10% Soln) Confirm Administered Dose 1 ml .ROUTE .STK- MED ONE Stop: 06/12/17 10:00 Povidone Iodine (Betadine 10% Soln) Confirm Administered Dose 1 ml .ROUTE .STK- MED ONE Stop: 06/13/17 11:01 Last Admin: 06/13/17 15:20 Dose: 20 ml Propofol (Diprivan 20 Ml) Confirm Administered Dose 200 mg .ROUTE .STK-MED ONE Stop: 06/13/17 14:28 Propofol (Diprivan 20 Ml) Confirm Administered Dose 200 mg .ROUTE .STK-MED ONE Stop: 06/13/17 15:04 Senna/Docusate Sodium (Senna Plus) 1 tab PO BID PRN PRN Reason: Constipation Last Admin: 06/14/17 07:36 Dose: 1 tab - Exam Quality Assessment: No: Supplemental Oxygen General: Alert, Oriented, Cooperative, Mild Distress Neck: Supple Lungs: Clear to Auscultation, Normal Respiratory Effort, Decreased Breath Sounds (mild at bases). No: Rales Cardiovascular: Regular Rate, Regular Rhythm GI/Abdominal Exam: Normal Bowel Sounds, Soft, No Distention Extremities: Pedal Edema (bilateral pitting ankle edema). No: Increased Warmth Skin: Warm, Dry Psy/Mental Status: Alert, Normal Affect - Problem List Review Problem List Initiated/Reviewed/Updated: Yes - My Orders Last 24 Hours: My Active Orders 06/15/17 09:50 Convert IV to Saline Lock [OM.PC] Routine 06/15/17 09:53 Diazepam [Valium] 2.5 mg IVPUSH Q6H PRN 06/15/17 10:00 Ciprofloxacin [Ciprofloxacin HCl] 500 mg PO Q12H 06/15/17 14:00 Acetaminophen [Tylenol Extra Strength] 1,000 mg PO TID 06/16/17 05:15 BASIC METABOLIC PANEL,BMP [CHEM] Timed - Plan Plan:: ASSESSMENT AND PLAN RIGHT HIP FRACTURE AROUND SURGICAL PROSTHESIS - she experienced a fall and suffered a zaid-prosthetic fracture. Stable since surgery with adequate pain control at rest though she does have a fair amount of pain with movement. -scheduled acetaminophen -As needed tramadol -Morphine for severe pain -Postop cares per Dr. Haas -saline lock IV ACUTE CYSTITIS - cx + for pseudomonas, will need to switch abx. Could explain persistent somnolence. -change abx to ciprofloxacin BIDx5 days BILATERAL RENAL MASSES - CT urogram obtained during last admission, was consistent with bilateral renal cell carcinoma. On CT scan of the chest as well as CT of the abdomen there is no evidence of metastatic disease or lymph node enlargement. -Will need follow-up with urology after she has recovered from hip fracture ANEMIA - hemoglobin has trended down since surgery but hemodynamically stable. -Recheck hemoglobin in a.m. -Iron supplement twice daily MILD PARKINSON'S DISEASE - stable. 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 -Nutrition; regular diet DISPOSITION-anticipate discharge to home after the hospital stay. Torey Brown MD
--- NOTE | 2017-06-15 10:00 | PCM.PN ---
- General Info Date of Service: 06/15/17 Functional Status: Reports: Pain Controlled, Tolerating Diet, Urinating - Patient Data Vitals - Most Recent: Last Vital Signs Temp 37.3 C 06/15/17 07:15 Pulse 93 06/15/17 07:15 Resp 10 L 06/15/17 07:15 BP 116/73 06/15/17 07:15 Pulse Ox 99 06/15/17 07:34 Weight - Most Recent: 141 lb 1.533 oz I&O - Last 24 Hours: Intake & Output 06/14/17 06/15/17 06/15/17 22:59 06:59 14:59 Intake Total 1120 1259 Output Total 325 750 Balance 795 509 Lab Results Last 24 Hours: Laboratory Results - last 24 hr 06/15/17 06/15/17 Range/Units 05:30 05:30 WBC 11.4 H (4.5-11.0) K/uL RBC 2.70 L (3.30-5.50) M/uL Hgb 7.9 L (12.0-15.0) g/dL Hct 25.9 L (36.0-48.0) % MCV 96 (80-98) fL MCH 29 (27-31) pg MCHC 31 L (32-36) % Plt Count 352 (150-400) K/uL Neut % (Auto) 84 H (36-66) % Lymph % (Auto) 8 L (24-44) % [place] % (Auto) 6 (2-6) % Eos % (Auto) 2 (2-4) % Baso % (Auto) 0 (0-1) % Sodium 141 (140-148) mmol/L Potassium 4.4 (3.6-5.2) mmol/L Chloride 106 (100-108) mmol/L Carbon Dioxide 32 (21-32) mmol/L Anion Gap 2.6 L (5.0-14.0) mmol/L BUN 14 (7-18) mg/dL Creatinine 0.7 (0.6-1.0) mg/dL Est Cr Clr Drug Dosing 63.58 mL/min Estimated GFR (MDRD) > 60 (>60) Glucose 101 (74-106) mg/dL Calcium 7.9 L (8.5-10.1) mg/dL Total Bilirubin 0.3 (0.2-1.0) mg/dL AST 23 (15-37) U/L ALT 14 (12-78) U/L Alkaline Phosphatase 78 (46-116) U/L Total Protein 5.5 L (6.4-8.2) g/dL Albumin 1.9 L (3.4-5.0) g/dL Globulin 3.6 H (2.3-3.5) g/dL Albumin/Globulin Ratio 0.5 L (1.2-2.2) Med Orders - Current: Current Medications Acetaminophen (Tylenol Extra Strength) 1,000 mg PO TID [facility] Al Hydroxide/Mg Hydroxide (Mag-Al Plus) 30 ml PO Q4H PRN PRN Reason: Constipation Aspirin (Ecotrin) 325 mg PO BID [facility] Last Admin: 06/15/17 09:00 Dose: 325 mg Bisacodyl (Dulcolax) 10 mg PO DAILY PRN PRN Reason: Constipation Carbidopa/Levodopa (Sinemet 25-100 Mg) 1 tab PO TIDMEALS [facility] Last Admin: 06/15/17 08:59 Dose: 1 tab Ciprofloxacin (Ciprofloxacin Hcl) 500 mg PO Q12H [facility] Clonazepam (Klonopin) 0.5 mg PO BEDTIME [facility] Last Admin: 06/14/17 20:37 Dose: 0.5 mg Clonazepam (Klonopin) 1 mg PO QAM [facility] Last Admin: 06/15/17 09:07 Dose: 1 mg Diazepam (Valium) 2.5 mg IVPUSH Q6H PRN PRN Reason: Spasms Diphenhydramine HCl (Benadryl) 25 mg IVPUSH Q4H PRN PRN Reason: Itching Ketorolac Tromethamine (Toradol) 15 mg IVPUSH Q8H PRN PRN Reason: Pain Stop: 06/18/17 16:45 Last Admin: 06/14/17 20:36 Dose: 15 mg Magnesium Hydroxide (Milk Of Magnesia) 30 ml PO BID PRN PRN Reason: Constipation Last Admin: 06/14/17 14:36 Dose: 30 ml Melatonin (Melatonin) 9 mg PO BEDTIME [facility] Last Admin: 06/14/17 20:37 Dose: 9 mg Morphine Sulfate (Morphine) 2 mg IVPUSH Q2H PRN PRN Reason: Pain Last Admin: 06/13/17 18:46 Dose: 2 mg Ondansetron HCl (Zofran Odt) 4 mg PO Q6H PRN PRN Reason: Nausea able to take PO Polysaccharide Iron Complex (Ferrex 150 Forte) 1 cap PO BIDMEALS [facility] Last Admin: 06/15/17 08:59 Dose: 1 cap Senna (Senna) 8.6 mg PO BID PRN PRN Reason: Constipation Senna/Docusate Sodium (Senna Plus) 1 tab PO DAILY PRN PRN Reason: Constipation Sodium Chloride (Saline Flush) 10 ml FLUSH DAILY [facility] Last Admin: 06/15/17 09:31 Dose: Not Given Tramadol HCl (Ultram) 50 mg PO Q8H PRN PRN Reason: Pain Last Admin: 06/15/17 09:29 Dose: 50 mg Discontinued Medications Acetaminophen (Tylenol) 650 mg PO NOW ONE Stop: 06/11/17 20:24 Last Admin: 06/11/17 20:34 Dose: 650 mg Hydrocodone Bitart/Acetaminophen ([place] 325-5 Mg) 1 - 2 tab PO Q4H PRN PRN Reason: Pain Last Admin: 06/14/17 18:45 Dose: 2 tab Bupivacaine HCl/Epinephrine Bitart ([place] 0.5%/Epinephrine 1:200,000) Confirm Administered Dose 50 ml .ROUTE .STK-MED ONE Stop: 06/12/17 10:00 Bupivacaine HCl/Epinephrine Bitart ([place] 0.5%/Epinephrine 1:200,000) Confirm Administered Dose 50 ml .ROUTE .STK-MED ONE Stop: 06/13/17 11:01 Last Admin: 06/13/17 15:19 Dose: 30 ml Clonazepam (Klonopin) 0.5 mg PO ONETIME ONE Stop: 06/11/17 22:50 Last Admin: 06/12/17 00:04 Dose: 0.5 mg Diazepam (Valium) 5 mg IVPUSH Q6H PRN PRN Reason: Spasms Docusate Sodium (Colace) 100 mg PO BID PRN PRN Reason: Constipation Ephedrine Sulfate (Ephedrine Sulfate) Confirm Administered Dose 50 mg .ROUTE .STK-MED ONE Stop: 06/13/17 14:29 Ephedrine Sulfate (Ephedrine Sulfate) Confirm Administered Dose 50 mg .ROUTE .STK-MED ONE Stop: 06/13/17 15:38 Fentanyl (Sublimaze) 50 mcg IVPUSH ONETIME ONE Stop: 06/11/17 18:35 Last Admin: 06/11/17 18:48 Dose: 50 mcg Fentanyl (Sublimaze) 50 mcg IVPUSH ONETIME ONE Stop: 06/11/17 20:24 Last Admin: 06/11/17 20:36 Dose: 50 mcg Fentanyl (Sublimaze) Confirm Administered Dose 100 mcg .ROUTE .STK-MED ONE Stop: 06/13/17 14:28 Gentamicin Sulfate (Gentamicin) Confirm Administered Dose 240 mg .ROUTE .STK- MED ONE Stop: 06/12/17 10:00 Gentamicin Sulfate (Gentamicin) Confirm Administered Dose 80 mg .ROUTE .STK-MED ONE Stop: 06/12/17 10:01 Gentamicin Sulfate (Gentamicin) Confirm Administered Dose 240 mg .ROUTE .STK- MED ONE Stop: 06/13/17 11:01 Last Admin: 06/13/17 16:28 Dose: 240 mg Hydromorphone HCl (Dilaudid) 0.5 mg IVPUSH Q3H PRN PRN Reason: Pain (moderate 4-6) Last Admin: 06/14/17 09:32 Dose: 0.5 mg Sodium Chloride (Normal Saline) 1,000 mls @ 125 mls/hr IV ASDIRECTED [facility] Last Admin: 06/12/17 07:39 Dose: 125 mls/hr Ceftriaxone Sodium 1 gm/ (Sodium Chloride) 50 mls @ 100 mls/hr IV Q24H [facility] Last Admin: 06/14/17 13:46 Dose: 100 mls/hr Lactated Ringer's (Ringers, Lactated) 1,000 mls @ 125 mls/hr IV ASDIRECTED [facility] Last Admin: 06/14/17 05:21 Dose: 125 mls/hr Cefazolin Sodium 1 gm/ Sodium (Chloride) 50 mls @ 100 mls/hr IV Q8H [facility] Stop: 06/14/17 09:29 Last Admin: 06/14/17 00:16 Dose: 100 mls/hr Cefazolin Sodium/Dextrose 1 gm (/ Premix) 50 mls @ 100 mls/hr IV ONETIME ONE Stop: 06/14/17 08:59 Last Admin: 06/14/17 08:32 Dose: 100 mls/hr Lactated Ringer's (Ringers, Lactated) 1,000 mls @ 50 mls/hr IV ASDIRECTED [facility] Lactated Ringer's (Ringers, Lactated) 500 mls @ 500 mls/hr IV .BOLUS ONE Stop: 06/14/17 12:29 Last Admin: 06/14/17 11:22 Dose: 500 mls/hr Sodium Chloride (Normal Saline) 1,000 mls @ 100 mls/hr IV ASDIRECTED [facility] Last Admin: 06/15/17 08:58 Dose: 100 mls/hr Midazolam HCl (Versed 1 Mg/Ml) Confirm Administered Dose 2 mg .ROUTE .STK-MED ONE Stop: 06/13/17 14:28 Naloxone HCl (Narcan) 0.1 mg IVPUSH ONETIME PRN PRN Reason: Oversedation Stop: 06/13/17 16:46 Ondansetron HCl (Zofran) 8 mg IVPUSH Q4H PRN PRN Reason: Nausea/Vomiting Oxycodone/Acetaminophen (Percocet 325-5 Mg) 1 tab PO Q4H PRN PRN Reason: Pain Povidone Iodine (Betadine 10% Soln) Confirm Administered Dose 1 ml .ROUTE .STK- MED ONE Stop: 06/12/17 10:00 Povidone Iodine (Betadine 10% Soln) Confirm Administered Dose 1 ml .ROUTE .STK- MED ONE Stop: 06/13/17 11:01 Last Admin: 06/13/17 15:20 Dose: 20 ml Propofol (Diprivan 20 Ml) Confirm Administered Dose 200 mg .ROUTE .STK-MED ONE Stop: 06/13/17 14:28 Propofol (Diprivan 20 Ml) Confirm Administered Dose 200 mg .ROUTE .STK-MED ONE Stop: 06/13/17 15:04 Senna/Docusate Sodium (Senna Plus) 1 tab PO BID PRN PRN Reason: Constipation Last Admin: 06/14/17 07:36 Dose: 1 tab - Exam Extremities: Normal Inspection Skin: Warm, Dry, Intact Wound/Incisions: Healing Well, Dressing Dry and Intact, No Drainage Neurological: No New Focal Deficit Psy/Mental Status: Alert - Problem List Review Problem List Initiated/Reviewed/Updated: Yes - My Orders Last 24 Hours: My Active Orders 06/14/17 09:00 Sodium Chloride 0.9% [Saline Flush] 10 ml FLUSH DAILY 06/14/17 16:45 Ice Therapy [OM.PC] PER UNIT ROUTINE 06/16/17 05:15 CBC WITH AUTO DIFF [HEME] DAILY 06/17/17 05:15 CBC WITH AUTO DIFF [HEME] DAILY - Plan Plan:: ASSESSMENT AND PLAN RIGHT HIP FRACTURE AROUND SURGICAL PROSTHESIS- Patient is doing well. I'm going to encourage her to use the Ultram for pain control. She continues [place] as needed also. Patient is is much more awake today. She is still pending but to transfer. We will continue to observe her strengthening. I would like her to continue to work with PT OT. We will keep an eye on her hemoglobin which came down to 7.7 today.
[2017-06-15] MEDS: Ciprofloxacin 500 MG Tab PO SCH ×2 (12:46→21:08)
[2017-06-15] MEDS: Acetaminophen 500 MG Tab PO SCH ×2 (14:21→20:23)
[2017-06-15] MEDS: ClonazePAM 0.5 MG Tab PO SCH (20:22)
[2017-06-15] MEDS: Melatonin 3 MG Tab PO SCH (20:23)
--- NOTE | 2017-06-16 07:46 | PCM.SN ---
- Free Text/Narrative Note: time 05:55; 2 [facility]; o; lab hgb 6.9 a; hypovolemia p; give one unit of PRBC, then recheck hemoglobin after blood transfusion is complete.
[2017-06-16] MEDS: Carbidopa/Levodopa 25-100 MG Tab PO SCH ×3 (08:59→18:05)
[2017-06-16] MEDS: Iron PS Complex & Vit B12/FA Cap PO SCH ×2 (08:59→18:06)
[2017-06-16] MEDS: Aspirin 325 MG Tab.EC PO SCH ×2 (09:00→20:28)
[2017-06-16] MEDS: Ciprofloxacin 500 MG Tab PO SCH ×2 (09:00→21:30)
[2017-06-16] MEDS: Acetaminophen 500 MG Tab PO SCH ×3 (09:00→20:29)
[2017-06-16] MEDS: ClonazePAM 1 MG Tab PO SCH (09:03)
[2017-06-16] MEDS: Sodium Chloride 0.9% 10 ML Syringe FLUSH SCH (09:57)
--- NOTE | 2017-06-16 10:43 | PCM.PN ---
- General Info Date of Service: 06/16/17 Functional Status: Reports: Pain Controlled, Tolerating Diet, Ambulating - Review of Systems General: Reports: Weakness Musculoskeletal: Reports: Leg Pain Systems Review Comment:: No acute events overnight. She is more alert and interactive today. Strength seems a little better today and the transfer from bed to chair was easier. Hip pain has been well controlled with tramadol and acetaminophen. No complaints of shortness of breath. Appetite was a little bit better today. Hemoglobin has dropped to below 7 this morning. - Patient Data Vitals - Most Recent: Last Vital Signs Temp 37.3 C 06/16/17 10:30 Pulse 90 06/16/17 10:30 Resp 16 06/16/17 10:30 BP 103/56 L 06/16/17 10:30 Pulse Ox 92 L 06/16/17 07:34 Weight - Most Recent: 64.5 kg I&O - Last 24 Hours: Intake & Output 06/15/17 06/16/17 06/16/17 22:59 06:59 14:59 Intake Total 200 1025 Output Total 450 550 150 Balance -250 -550 875 Lab Results Last 24 Hours: Laboratory Results - last 24 hr 06/16/17 06/16/17 06/16/17 Range/Units 04:56 05:00 05:00 WBC 7.8 (4.5-11.0) K/uL RBC 2.33 L (3.30-5.50) M/uL Hgb 6.9 L* (12.0-15.0) g/dL Hct 22.4 L (36.0-48.0) % MCV 96 (80-98) fL MCH 30 (27-31) pg MCHC 31 L (32-36) % Plt Count 356 (150-400) K/uL Neut % (Auto) 75 H (36-66) % Lymph % (Auto) 12 L (24-44) % [place] % (Auto) 9 H (2-6) % Eos % (Auto) 3 (2-4) % Baso % (Auto) 0 (0-1) % Sodium 140 (140-148) mmol/L Potassium 3.9 (3.6-5.2) mmol/L Chloride 107 (100-108) mmol/L Carbon Dioxide 32 (21-32) mmol/L Anion Gap 0.9 L (5.0-14.0) mmol/L BUN 15 (7-18) mg/dL Creatinine 0.6 (0.6-1.0) mg/dL Est Cr Clr Drug Dosing 74.18 mL/min Estimated GFR (MDRD) > 60 (>60) Glucose 100 (74-106) mg/dL Calcium 7.9 L (8.5-10.1) mg/dL Blood Type A POSITIVE Gel Antibody Screen Negative Crossmatch See Detail Med Orders - Current: Current Medications Acetaminophen (Tylenol Extra Strength) 1,000 mg PO TID [facility] Last Admin: 06/16/17 09:00 Dose: 1,000 mg Al Hydroxide/Mg Hydroxide (Mag-Al Plus) 30 ml PO Q4H PRN PRN Reason: Constipation Aspirin (Ecotrin) 325 mg PO BID [facility] Last Admin: 06/16/17 09:00 Dose: 325 mg Bisacodyl (Dulcolax) 10 mg PO DAILY PRN PRN Reason: Constipation Carbidopa/Levodopa (Sinemet 25-100 Mg) 1 tab PO TIDMEALS [facility] Last Admin: 06/16/17 08:59 Dose: 1 tab Ciprofloxacin (Ciprofloxacin Hcl) 500 mg PO Q12H [facility] Last Admin: 06/16/17 09:00 Dose: 500 mg Clonazepam (Klonopin) 0.5 mg PO BEDTIME [facility] Last Admin: 06/15/17 20:22 Dose: 0.5 mg Clonazepam (Klonopin) 1 mg PO QAM [facility] Last Admin: 06/16/17 09:03 Dose: 1 mg Diazepam (Valium) 2.5 mg IVPUSH Q6H PRN PRN Reason: Spasms Diphenhydramine HCl (Benadryl) 25 mg IVPUSH Q4H PRN PRN Reason: Itching Furosemide (Lasix) 20 mg IVPUSH ONETIME ONE Stop: 06/16/17 12:01 Ketorolac Tromethamine (Toradol) 15 mg IVPUSH Q8H PRN PRN Reason: Pain Stop: 06/18/17 16:45 Last Admin: 06/14/17 20:36 Dose: 15 mg Magnesium Hydroxide (Milk Of Magnesia) 30 ml PO BID PRN PRN Reason: Constipation Last Admin: 06/14/17 14:36 Dose: 30 ml Melatonin (Melatonin) 9 mg PO BEDTIME [facility] Last Admin: 06/15/17 20:23 Dose: 9 mg Morphine Sulfate (Morphine) 2 mg IVPUSH Q2H PRN PRN Reason: Pain Last Admin: 06/13/17 18:46 Dose: 2 mg Ondansetron HCl (Zofran Odt) 4 mg PO Q6H PRN PRN Reason: Nausea able to take PO Polysaccharide Iron Complex (Ferrex 150 Forte) 1 cap PO BIDMEALS [facility] Last Admin: 06/16/17 08:59 Dose: 1 cap Senna (Senna) 8.6 mg PO BID PRN PRN Reason: Constipation Senna/Docusate Sodium (Senna Plus) 1 tab PO DAILY PRN PRN Reason: Constipation Sodium Chloride (Saline Flush) 10 ml FLUSH DAILY [facility] Last Admin: 06/16/17 09:57 Dose: 10 ml Tramadol HCl (Ultram) 50 mg PO Q8H PRN PRN Reason: Pain Last Admin: 06/15/17 17:35 Dose: 50 mg Discontinued Medications Acetaminophen (Tylenol) 650 mg PO NOW ONE Stop: 06/11/17 20:24 Last Admin: 06/11/17 20:34 Dose: 650 mg Hydrocodone Bitart/Acetaminophen ([place] 325-5 Mg) 1 - 2 tab PO Q4H PRN PRN Reason: Pain Last Admin: 06/14/17 18:45 Dose: 2 tab Bupivacaine HCl/Epinephrine Bitart (Marcaine 0.5%/Epinephrine 1:200,000) Confirm Administered Dose 50 ml .ROUTE .STK-MED ONE Stop: 06/12/17 10:00 Bupivacaine HCl/Epinephrine Bitart (Marc[place] 0.5%/Epinephrine 1:200,000) Confirm Administered Dose 50 ml .ROUTE .STK-MED ONE Stop: 06/13/17 11:01 Last Admin: 06/13/17 15:19 Dose: 30 ml Clonazepam (Klonopin) 0.5 mg PO ONETIME ONE Stop: 06/11/17 22:50 Last Admin: 06/12/17 00:04 Dose: 0.5 mg Diazepam (Valium) 5 mg IVPUSH Q6H PRN PRN Reason: Spasms Docusate Sodium (Colace) 100 mg PO BID PRN PRN Reason: Constipation Ephedrine Sulfate (Ephedrine Sulfate) Confirm Administered Dose 50 mg .ROUTE .STK-MED ONE Stop: 06/13/17 14:29 Ephedrine Sulfate (Ephedrine Sulfate) Confirm Administered Dose 50 mg .ROUTE .[facility] ONE Stop: 06/13/17 15:38 Fentanyl (Sublimaze) 50 mcg IVPUSH ONETIME ONE Stop: 06/11/17 18:35 Last Admin: 06/11/17 18:48 Dose: 50 mcg Fentanyl (Sublimaze) 50 mcg IVPUSH ONETIME ONE Stop: 06/11/17 20:24 Last Admin: 06/11/17 20:36 Dose: 50 mcg Fentanyl (Sublimaze) Confirm Administered Dose 100 mcg .ROUTE .STK-MED ONE Stop: 06/13/17 14:28 Gentamicin Sulfate (Gentamicin) Confirm Administered Dose [address] .[facility] ONE Stop: 06/12/17 10:00 Gentamicin Sulfate (Gentamicin) Confirm Administered Dose 80 mg .ROUTE .[facility] ONE Stop: 06/12/17 10:01 Gentamicin Sulfate (Gentamicin) Confirm Administered Dose [address] .[facility] ONE Stop: 06/13/17 11:01 Last Admin: 06/13/17 16:28 Dose: 240 mg Hydromorphone HCl (Dilaudid) 0.5 mg IVPUSH Q3H PRN PRN Reason: Pain (moderate 4-6) Last Admin: 06/14/17 09:32 Dose: 0.5 mg Sodium Chloride (Normal Saline) 1,000 [facility]ls [facility] Last Admin: 06/12/17 07:39 Dose: 125 mls/hr Ceftriaxone Sodium 1 gm/ (Sodium Chloride) 50 mls @ 100 mls/hr IV Q24H [facility] Last Admin: 06/14/17 13:46 Dose: 100 mls/hr Lactated Ringer's (Ringers, Lactated) 1,000 mls [facility] Last Admin: 06/14/17 05:21 Dose: 125 mls/hr Cefazolin Sodium 1 gm/ Sodium (Chloride) 50 mls @ 100 mls/hr IV Q8H [facility] Stop: 06/14/17 09:29 Last Admin: 06/14/17 00:16 Dose: 100 mls/hr Cefazolin Sodium/Dextrose 1 gm (/ Premix) 50 mls @ 100 mls/hr IV ONETIME ONE Stop: 06/14/17 08:59 Last Admin: 06/14/17 08:32 Dose: 100 mls/hr Lactated Ringer's (Ringers, Lactated) 1,000 mls @ 50 mls/hr IV ASDIRECTED [facility] Lactated Ringer's (Ringers, Lactated) 500 mls @ 500 mls/hr IV .BOLUS ONE Stop: 06/14/17 12:29 Last Admin: 06/14/17 11:22 Dose: 500 mls/hr Sodium Chloride (Normal Saline) 1,000 mls @ 100 mls/hr IV ASDIRECTED [facility] Last Admin: 06/15/17 08:58 Dose: 100 mls/hr Midazolam HCl (Versed 1 Mg/Ml) Confirm Administered Dose 2 mg .ROUTE .STK-MED ONE Stop: 06/13/17 14:28 Naloxone HCl (Narcan) 0.1 mg IVPUSH ONETIME PRN PRN Reason: Oversedation Stop: 06/13/17 16:46 Ondansetron HCl (Zofran) 8 mg IVPUSH Q4H PRN PRN Reason: Nausea/Vomiting Oxycodone/Acetaminophen (Percocet 325-5 Mg) 1 tab PO Q4H PRN PRN Reason: Pain Povidone Iodine (Betadine 10% Soln) Confirm Administered Dose 1 ml .ROUTE .STK- MED ONE Stop: 06/12/17 10:00 Povidone Iodine (Betadine 10% Soln) Confirm Administered Dose 1 ml .ROUTE .STK- MED ONE Stop: 06/13/17 11:01 Last Admin: 06/13/17 15:20 Dose: 20 ml Propofol (Diprivan 20 Ml) Confirm Administered Dose 200 mg .ROUTE .STK-MED ONE Stop: 06/13/17 14:28 Propofol (Diprivan 20 Ml) Confirm Administered Dose 200 mg .ROUTE .STK-MED ONE Stop: 06/13/17 15:04 Senna/Docusate Sodium (Senna Plus) 1 tab PO BID PRN PRN Reason: Constipation Last Admin: 06/14/17 07:36 Dose: 1 tab - Exam Quality Assessment: No: Supplemental Oxygen General: Alert, Oriented, Cooperative, No Acute Distress Neck: Supple Lungs: Clear to Auscultation, Normal Respiratory Effort Cardiovascular: Regular Rate, Regular Rhythm GI/Abdominal Exam: Soft, No Distention Extremities: Pedal Edema (mild bilateral ankle edema L>R). No: Increased Warmth Skin: Warm, Dry Psy/Mental Status: Alert, Normal Affect - Problem List Review Problem List Initiated/Reviewed/Updated: Yes - My Orders Last 24 Hours: My Active Orders 06/15/17 09:50 Convert IV to Saline Lock [OM.PC] Routine 06/15/17 09:53 Diazepam [Valium] 2.5 mg IVPUSH Q6H PRN 06/15/17 10:00 Ciprofloxacin [Ciprofloxacin HCl] 500 mg PO Q12H 06/15/17 14:00 Acetaminophen [Tylenol Extra Strength] 1,000 mg PO TID 06/16/17 08:40 Transfuse Red Blood Cells [COMM] Routine 06/16/17 12:00 Furosemide [Lasix] 20 mg IVPUSH ONETIME ONE 06/17/17 05:00 CBC W/O DIFF,HEMOGRAM [HEME] Timed (1) - Plan Plan:: ASSESSMENT AND PLAN RIGHT HIP FRACTURE AROUND SURGICAL PROSTHESIS - she experienced a fall and suffered a zaid-prosthetic fracture. Stable since surgery with adequate pain control. -scheduled acetaminophen -As needed tramadol -Morphine for severe pain -Postop cares per Dr. Haas -saline lock IV ACUTE BLOOD LOSS ANEMIA - hemoglobin has continued downward trend and is now less than 7. -Transfuse 2 units of blood today -Furosemide between units to avoid volume overload -Recheck hemoglobin in a.m. -Iron supplement twice daily ACUTE CYSTITIS - cx + for pseudomonas, tolerating ciprofloxacin. -change abx to ciprofloxacin BIDx5 days BILATERAL RENAL MASSES - CT urogram obtained during last admission, was consistent with bilateral renal cell carcinoma. On CT scan of the chest as well as CT of the abdomen there is no evidence of metastatic disease or lymph node enlargement. -Will need follow-up with urology after she has recovered from hip fracture MILD PARKINSON'S DISEASE - stable. 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 MAINTENANCE ISSUES -DVT prophylaxis; BID ASA -GI prophylaxis; not indicated -Cotter catheter; placemed because of recurrent hip fracture, plan to leave in place with severe mobility limitations. Hopefully this can be removed tomorrow -Nutrition; regular diet DISPOSITION - anticipate discharge to [facility] after the hospital stay. Torey Brown MD
[2017-06-16] MEDS ORDERED: Furosemide 20 MG/2 ML VIAL IVPUSH ONE (12:00)
--- NOTE | 2017-06-16 12:04 | PCM.PN ---
- General Info Date of Service: 06/16/17 Functional Status: Reports: Pain Controlled, Tolerating Diet, Ambulating - Patient Data Vitals - Most Recent: Last Vital Signs Temp 37.4 C 06/16/17 11:15 Pulse 88 06/16/17 11:15 Resp 16 06/16/17 11:15 BP 101/60 06/16/17 11:15 Pulse Ox 92 L 06/16/17 07:34 Weight - Most Recent: 142 lb 3.17 oz I&O - Last 24 Hours: Intake & Output 06/15/17 06/16/17 06/16/17 22:59 06:59 14:59 Intake Total 200 1025 Output Total 450 550 150 Balance -250 -550 875 Lab Results Last 24 Hours: Laboratory Results - last 24 hr 06/16/17 06/16/17 06/16/17 Range/Units 04:56 05:00 05:00 WBC 7.8 (4.5-11.0) K/uL RBC 2.33 L (3.30-5.50) M/uL Hgb 6.9 L* (12.0-15.0) g/dL Hct 22.4 L (36.0-48.0) % MCV 96 (80-98) fL MCH 30 (27-31) pg MCHC 31 L (32-36) % Plt Count 356 (150-400) K/uL Neut % (Auto) 75 H (36-66) % Lymph % (Auto) 12 L (24-44) % [place] % (Auto) 9 H (2-6) % Eos % (Auto) 3 (2-4) % Baso % (Auto) 0 (0-1) % Sodium 140 (140-148) mmol/L Potassium 3.9 (3.6-5.2) mmol/L Chloride 107 (100-108) mmol/L Carbon Dioxide 32 (21-32) mmol/L Anion Gap 0.9 L (5.0-14.0) mmol/L BUN 15 (7-18) mg/dL Creatinine 0.6 (0.6-1.0) mg/dL Est Cr Clr Drug Dosing 74.18 mL/min Estimated GFR (MDRD) > 60 (>60) Glucose 100 (74-106) mg/dL Calcium 7.9 L (8.5-10.1) mg/dL Blood Type A POSITIVE Gel Antibody Screen Negative Crossmatch See Detail Med Orders - Current: Current Medications Acetaminophen (Tylenol Extra Strength) 1,000 mg PO TID [facility] Last Admin: 06/16/17 09:00 Dose: 1,000 mg Al Hydroxide/Mg Hydroxide (Mag-Al Plus) 30 ml PO Q4H PRN PRN Reason: Constipation Aspirin (Ecotrin) 325 mg PO BID [facility] Last Admin: 06/16/17 09:00 Dose: 325 mg Bisacodyl (Dulcolax) 10 mg PO DAILY PRN PRN Reason: Constipation Carbidopa/Levodopa (Sinemet 25-100 Mg) 1 tab PO TIDMEALS [facility] Last Admin: 06/16/17 08:59 Dose: 1 tab Ciprofloxacin (Ciprofloxacin Hcl) 500 mg PO Q12H [facility] Last Admin: 06/16/17 09:00 Dose: 500 mg Clonazepam (Klonopin) 0.5 mg PO BEDTIME [facility] Last Admin: 06/15/17 20:22 Dose: 0.5 mg Clonazepam (Klonopin) 1 mg PO QAM [facility] Last Admin: 06/16/17 09:03 Dose: 1 mg Diazepam (Valium) 2.5 mg IVPUSH Q6H PRN PRN Reason: Spasms Diphenhydramine HCl (Benadryl) 25 mg IVPUSH Q4H PRN PRN Reason: Itching Furosemide (Lasix) 20 mg IVPUSH ONETIME ONE Stop: 06/16/17 12:01 Ketorolac Tromethamine (Toradol) 15 mg IVPUSH Q8H PRN PRN Reason: Pain Stop: 06/18/17 16:45 Last Admin: 06/14/17 20:36 Dose: 15 mg Magnesium Hydroxide (Milk Of Magnesia) 30 ml PO BID PRN PRN Reason: Constipation Last Admin: 06/14/17 14:36 Dose: 30 ml Melatonin (Melatonin) 9 mg PO BEDTIME [facility] Last Admin: 06/15/17 20:23 Dose: 9 mg Morphine Sulfate (Morphine) 2 mg IVPUSH Q2H PRN PRN Reason: Pain Last Admin: 06/13/17 18:46 Dose: 2 mg Ondansetron HCl (Zofran Odt) 4 mg PO Q6H PRN PRN Reason: Nausea able to take PO Polysaccharide Iron Complex (Ferrex 150 Forte) 1 cap PO BIDMEALS [facility] Last Admin: 06/16/17 08:59 Dose: 1 cap Senna (Senna) 8.6 mg PO BID PRN PRN Reason: Constipation Senna/Docusate Sodium (Senna Plus) 1 tab PO DAILY PRN PRN Reason: Constipation Sodium Chloride (Saline Flush) 10 ml FLUSH DAILY [facility] Last Admin: 06/16/17 09:57 Dose: 10 ml Tramadol HCl (Ultram) 50 mg PO Q8H PRN PRN Reason: Pain Last Admin: 06/15/17 17:35 Dose: 50 mg Discontinued Medications Acetaminophen (Tylenol) 650 mg PO NOW ONE Stop: 06/11/17 20:24 Last Admin: 06/11/17 20:34 Dose: 650 mg Hydrocodone Bitart/Acetaminophen ([place] 325-5 Mg) 1 - 2 tab PO Q4H PRN PRN Reason: Pain Last Admin: 06/14/17 18:45 Dose: 2 tab Bupivacaine HCl/Epinephrine Bitart (Marc[place] 0.5%/Epinephrine 1:200,000) Confirm Administered Dose 50 ml .ROUTE .STK-MED ONE Stop: 06/12/17 10:00 Bupivacaine HCl/Epinephrine Bitart (Marc[place] 0.5%/Epinephrine 1:200,000) Confirm Administered Dose 50 ml .ROUTE .STK-MED ONE Stop: 06/13/17 11:01 Last Admin: 06/13/17 15:19 Dose: 30 ml Clonazepam (Klonopin) 0.5 mg PO ONETIME ONE Stop: 06/11/17 22:50 Last Admin: 06/12/17 00:04 Dose: 0.5 mg Diazepam (Valium) 5 mg IVPUSH Q6H PRN PRN Reason: Spasms Docusate Sodium (Colace) 100 mg PO BID PRN PRN Reason: Constipation Ephedrine Sulfate (Ephedrine Sulfate) Confirm Administered Dose 50 mg .ROUTE .STK-MED ONE Stop: 06/13/17 14:29 Ephedrine Sulfate (Ephedrine Sulfate) Confirm Administered Dose 50 mg .ROUTE .STK-MED ONE Stop: 06/13/17 15:38 Fentanyl (Sublimaze) 50 mcg IVPUSH ONETIME ONE Stop: 06/11/17 18:35 Last Admin: 06/11/17 18:48 Dose: 50 mcg Fentanyl (Sublimaze) 50 mcg IVPUSH ONETIME ONE Stop: 06/11/17 20:24 Last Admin: 06/11/17 20:36 Dose: 50 mcg Fentanyl (Sublimaze) Confirm Administered Dose 100 mcg .ROUTE .STK-MED ONE Stop: 06/13/17 14:28 Gentamicin Sulfate (Gentamicin) Confirm Administered Dose 240 mg .ROUTE .STK- MED ONE Stop: 06/12/17 10:00 Gentamicin Sulfate (Gentamicin) Confirm Administered Dose 80 mg .ROUTE .STK-MED ONE Stop: 06/12/17 10:01 Gentamicin Sulfate (Gentamicin) Confirm Administered Dose 240 mg .ROUTE .STK- MED ONE Stop: 06/13/17 11:01 Last Admin: 06/13/17 16:28 Dose: 240 mg Hydromorphone HCl (Dilaudid) 0.5 mg IVPUSH Q3H PRN PRN Reason: Pain (moderate 4-6) Last Admin: 06/14/17 09:32 Dose: 0.5 mg Sodium Chloride (Normal Saline) 1,000 mls @ 125 [facility]ls[facility] Last Admin: 06/12/17 07:39 Dose: 125 mls/hr Ceftriaxone Sodium 1 gm/ (Sodium Chloride) 50 mls @ 100 mls/hr IV Q24H [facility] Last Admin: 06/14/17 13:46 Dose: 100 mls/hr Lactated Ringer's (Ringers, Lactated) 1,000 mls @ 125 mls[facility] Last Admin: 06/14/17 05:21 Dose: 125 mls/hr Cefazolin Sodium 1 gm/ Sodium (Chloride) 50 mls @ 100 mls/hr IV Q8H [facility] Stop: 06/14/17 09:29 Last Admin: 06/14/17 00:16 Dose: 100 mls/hr Cefazolin Sodium/Dextrose 1 gm (/ Premix) 50 mls @ 100 mls/hr IV ONETIME ONE Stop: 06/14/17 08:59 Last Admin: 06/14/17 08:32 Dose: 100 mls/hr Lactated Ringer's (Ringers, Lactated) 1,000 [facility]ls [facility] L[facility]ated Ringer's (Ringers, Lactated) 500 mls @ 500 mls/hr IV .BOLUS ONE Stop: 06/14/17 12:29 Last Admin: 06/14/17 11:22 Dose: 500 mls/hr Sodium Chloride (Normal Saline) 1,000 mls @ 100 mls/hr IV [facility] Last Admin: 06/15/17 08:58 Dose: 100 mls/hr Midazolam HCl (Versed 1 Mg/Ml) Confirm Administered Dose 2 mg .ROUTE .STK-MED ONE Stop: 06/13/17 14:28 Naloxone HCl (Narcan) 0.1 mg IVPUSH ONETIME PRN PRN Reason: Oversedation Stop: 06/13/17 16:46 Ondansetron HCl (Zofran) 8 mg IVPUSH Q4H PRN PRN Reason: Nausea/Vomiting Oxycodone/Acetaminophen (Percocet 325-5 Mg) 1 tab PO Q4H PRN PRN Reason: Pain Povidone Iodine (Betadine 10% Soln) Confirm Administered Dose 1 ml .ROUTE .STK- MED ONE Stop: 06/12/17 10:00 Povidone Iodine (Betadine 10% Soln) Confirm Administered Dose 1 ml .ROUTE .STK- MED ONE Stop: 06/13/17 11:01 Last Admin: 06/13/17 15:20 Dose: 20 ml Propofol (Diprivan 20 Ml) Confirm Administered Dose 200 mg .ROUTE .STK-MED ONE Stop: 06/13/17 14:28 Propofol (Diprivan 20 Ml) Confirm Administered Dose 200 mg .ROUTE .STK-MED ONE Stop: 06/13/17 15:04 Senna/Docusate Sodium (Senna Plus) 1 tab PO BID PRN PRN Reason: Constipation Last Admin: 06/14/17 07:36 Dose: 1 tab - Exam General: Alert, Oriented Extremities: Normal Inspection, Normal Capillary Refill, Pedal Edema Peripheral Pulses: 2+: Dorsalis Pedis (L), Dorsalis Pedis (R) Skin: Warm, Dry, Intact Wound/Incisions: Healing Well, Dressing Dry and Intact Neurological: No New Focal Deficit Psy/Mental Status: Alert - Problem List Review Problem List Initiated/Reviewed/Updated: Yes - Plan Plan:: ASSESSMENT AND PLAN RIGHT HIP FRACTURE AROUND SURGICAL PROSTHESIS - Patient doing well at this time. she is status pod 3 of a right hip wiring due to a fall post hip hemiarthorplasty. She is starting to transfer better. She needs to be consistent with the 25% weight bearing. We encourage her to continue with PT/OT and oral pain medications. Her Hgb is low today at 6.9 so we will reassess tomorrow for possible dc back to senior care.
[2017-06-16] MEDS: Melatonin 3 MG Tab PO SCH (20:29)
[2017-06-16] MEDS: ClonazePAM 0.5 MG Tab PO SCH (20:34)
[2017-06-17] MEDS: ClonazePAM 1 MG Tab PO SCH (08:18)
[2017-06-17] MEDS: Acetaminophen 500 MG Tab PO SCH ×3 (08:21→20:31)
[2017-06-17] MEDS: Carbidopa/Levodopa 25-100 MG Tab PO SCH ×3 (09:03→18:03)
[2017-06-17] MEDS: Iron PS Complex & Vit B12/FA Cap PO SCH ×2 (09:03→18:01)
[2017-06-17] MEDS: Sodium Chloride 0.9% 10 ML Syringe FLUSH SCH (09:09)
[2017-06-17] MEDS: Aspirin 325 MG Tab.EC PO SCH ×2 (09:11→20:33)
[2017-06-17] MEDS: Ciprofloxacin 500 MG Tab PO SCH ×2 (09:11→21:24)
--- NOTE | 2017-06-17 13:00 | PCM.PN ---
- General Info Date of Service: 06/17/17 Functional Status: Reports: Pain Controlled, Tolerating Diet - Review of Systems General: Reports: Weakness Musculoskeletal: Reports: Leg Pain Systems Review Comment:: No acute events overnight. Pain has been fairly well-controlled, especially at rest. She does continue to report pain with activity. She believes her strength is a little better today. She has not had a bowel movement in several days. No hypoxia. Appetite and energy continue to improve. Hemoglobin up to 9 after blood transfusion yesterday. - Patient Data Vitals - Most Recent: Last Vital Signs Temp 37.3 C 06/17/17 11:31 Pulse 84 06/17/17 11:31 Resp 16 06/17/17 11:31 BP 137/82 06/17/17 11:31 Pulse Ox 97 06/17/17 11:31 Weight - Most Recent: 64.2 kg I&O - Last 24 Hours: Intake & Output 06/16/17 06/17/17 06/17/17 22:59 06:59 14:59 Intake Total 330 560 120 Output Total 690 870 175 Balance -360 -310 -55 Lab Results Last 24 Hours: Laboratory Results - last 24 hr 06/16/17 06/17/17 Range/Units 04:56 05:39 WBC 7.5 (4.5-11.0) K/uL RBC 3.12 L (3.30-5.50) M/uL Hgb 9.1 L D (12.0-15.0) g/dL Hct 28.8 L (36.0-48.0) % MCV 92 (80-98) fL MCH 29 (27-31) pg MCHC 32 (32-36) % Plt Count 353 (150-400) K/uL Blood Type A POSITIVE Gel Antibody Screen Negative Crossmatch See Detail Med Orders - Current: Current Medications Acetaminophen (Tylenol Extra Strength) 1,000 mg PO TID [facility] Last Admin: 06/17/17 08:21 Dose: 1,000 mg Al Hydroxide/Mg Hydroxide (Mag-Al Plus) 30 ml PO Q4H PRN PRN Reason: Constipation Aspirin (Ecotrin) 325 mg PO BID [facility] Last Admin: 06/17/17 09:11 Dose: 325 mg Bisacodyl (Dulcolax) 10 mg PO DAILY PRN PRN Reason: Constipation Last Admin: 06/17/17 09:07 Dose: 10 mg Carbidopa/Levodopa (Sinemet 25-100 Mg) 1 tab PO TIDMEALS [facility] Last Admin: 06/17/17 12:07 Dose: 1 tab Ciprofloxacin (Ciprofloxacin Hcl) 500 mg PO Q12H [facility] Last Admin: 06/17/17 09:11 Dose: 500 mg Clonazepam (Klonopin) 0.5 mg PO BEDTIME [facility] Last Admin: 06/16/17 20:34 Dose: 0.5 mg Clonazepam (Klonopin) 1 mg PO QAM [facility] Last Admin: 06/17/17 08:18 Dose: 1 mg Diazepam (Valium) 2.5 mg IVPUSH Q6H PRN PRN Reason: Spasms Diphenhydramine HCl (Benadryl) 25 mg IVPUSH Q4H PRN PRN Reason: Itching Ketorolac Tromethamine (Toradol) 15 mg IVPUSH Q8H PRN PRN Reason: Pain Stop: 06/18/17 16:45 Last Admin: 06/14/17 20:36 Dose: 15 mg Magnesium Hydroxide (Milk Of Magnesia) 30 ml PO BID PRN PRN Reason: Constipation Last Admin: 06/14/17 14:36 Dose: 30 ml Melatonin (Melatonin) 9 mg PO BEDTIME [facility] Last Admin: 06/16/17 20:29 Dose: 9 mg Morphine Sulfate (Morphine) 2 mg IVPUSH Q2H PRN PRN Reason: Pain Last Admin: 06/13/17 18:46 Dose: 2 mg Ondansetron HCl (Zofran Odt) 4 mg PO Q6H PRN PRN Reason: Nausea able to take PO Polysaccharide Iron Complex (Ferrex 150 Forte) 1 cap PO BIDMEALS [facility] Last Admin: 06/17/17 09:03 Dose: 1 cap Senna (Senna) 8.6 mg PO BID PRN PRN Reason: Constipation Senna/Docusate Sodium (Senna Plus) 1 tab PO DAILY PRN PRN Reason: Constipation Sodium Chloride (Saline Flush) 10 ml FLUSH DAILY [facility] Last Admin: 06/17/17 09:09 Dose: 10 ml Tramadol HCl (Ultram) 50 mg PO Q8H PRN PRN Reason: Pain Last Admin: 06/15/17 17:35 Dose: 50 mg Discontinued Medications Acetaminophen (Tylenol) 650 mg PO NOW ONE Stop: 06/11/17 20:24 Last Admin: 06/11/17 20:34 Dose: 650 mg Hydrocodone Bitart/Acetaminophen ([place] 325-5 Mg) 1 - 2 tab PO Q4H PRN PRN Reason: Pain Last Admin: 06/14/17 18:45 Dose: 2 tab Bupivacaine HCl/Epinephrine Bitart (Marcaine 0.5%/Epinephrine 1:200,000) Confirm Administered Dose 50 ml .ROUTE .STK-MED ONE Stop: 06/12/17 10:00 Bupivacaine HCl/Epinephrine Bitart (Marcaine 0.5%/Epinephrine 1:200,000) Confirm Administered Dose 50 ml .ROUTE .STK-MED ONE Stop: 06/13/17 11:01 Last Admin: 06/13/17 15:19 Dose: 30 ml Clonazepam (Klonopin) 0.5 mg PO ONETIME ONE Stop: 06/11/17 22:50 Last Admin: 06/12/17 00:04 Dose: 0.5 mg Diazepam (Valium) 5 mg IVPUSH Q6H PRN PRN Reason: Spasms Docusate Sodium (Colace) 100 mg PO BID PRN PRN Reason: Constipation Ephedrine Sulfate (Ephedrine Sulfate) Confirm Administered Dose 50 mg .ROUTE .STK-MED ONE Stop: 06/13/17 14:29 Ephedrine Sulfate (Ephedrine Sulfate) Confirm Administered Dose 50 mg .ROUTE .STK-MED ONE Stop: 06/13/17 15:38 Fentanyl (Sublimaze) 50 mcg IVPUSH ONETIME ONE Stop: 06/11/17 18:35 Last Admin: 06/11/17 18:48 Dose: 50 mcg Fentanyl (Sublimaze) 50 mcg IVPUSH ONETIME ONE Stop: 06/11/17 20:24 Last Admin: 06/11/17 20:36 Dose: 50 mcg Fentanyl (Sublimaze) Confirm Administered Dose 100 mcg .ROUTE .STK-MED ONE Stop: 06/13/17 14:28 Furosemide (Lasix) 20 mg IVPUSH ONETIME ONE Stop: 06/16/17 12:01 Last Admin: 06/16/17 12:50 Dose: 20 mg Gentamicin Sulfate (Gentamicin) Confirm Administered Dose 240 mg .ROUTE .STK- MED ONE Stop: 06/12/17 10:00 Gentamicin Sulfate (Gentamicin) Confirm Administered Dose 80 mg .ROUTE .STK-MED ONE Stop: 06/12/17 10:01 Gentamicin Sulfate (Gentamicin) Confirm Administered Dose 240 mg .ROUTE .STK- MED ONE Stop: 06/13/17 11:01 Last Admin: 06/13/17 16:28 Dose: 240 mg Hydromorphone HCl (Dilaudid) 0.5 mg IVPUSH Q3H PRN PRN Reason: Pain (moderate 4-6) Last Admin: 06/14/17 09:32 Dose: 0.5 mg Sodium Chloride (Normal Saline) 1,000 mls @ 125 mls/hr IV ASDIRECTED [facility] Last Admin: 06/12/17 07:39 Dose: 125 mls/hr Ceftriaxone Sodium 1 gm/ (Sodium Chloride) 50 mls @ 100 mls/hr IV Q24H [facility] Last Admin: 06/14/17 13:46 Dose: 100 mls/hr Lactated Ringer's (Ringers, Lactated) 1,000 mls @ 125 mls/hr IV ASDIRECTED [facility] Last Admin: 06/14/17 05:21 Dose: 125 mls/hr Cefazolin Sodium 1 gm/ Sodium (Chloride) 50 mls @ 100 mls/hr IV Q8H [facility] Stop: 06/14/17 09:29 Last Admin: 06/14/17 00:16 Dose: 100 mls/hr Cefazolin Sodium/Dextrose 1 gm (/ Premix) 50 mls @ 100 mls/hr IV ONETIME ONE Stop: 06/14/17 08:59 Last Admin: 06/14/17 08:32 Dose: 100 mls/hr Lactated Ringer's (Ringers, Lactated) 1,000 mls @ 50 mls/hr IV ASDIRECTED [facility] Lactated Ringer's (Ringers, Lactated) 500 mls @ 500 mls/hr IV .BOLUS ONE Stop: 06/14/17 12:29 Last Admin: 06/14/17 11:22 Dose: 500 mls/hr Sodium Chloride (Normal Saline) 1,000 mls @ 100 mls/hr IV ASDIRECTED [facility] Last Admin: 06/15/17 08:58 Dose: 100 mls/hr Midazolam HCl (Versed 1 Mg/Ml) Confirm Administered Dose 2 mg .ROUTE .STK-MED ONE Stop: 06/13/17 14:28 Naloxone HCl (Narcan) 0.1 mg IVPUSH ONETIME PRN PRN Reason: Oversedation Stop: 06/13/17 16:46 Ondansetron HCl (Zofran) 8 mg IVPUSH Q4H PRN PRN Reason: Nausea/Vomiting Oxycodone/Acetaminophen (Percocet 325-5 Mg) 1 tab PO Q4H PRN PRN Reason: Pain Povidone Iodine (Betadine 10% Soln) Confirm Administered Dose 1 ml .ROUTE .STK- MED ONE Stop: 06/12/17 10:00 Povidone Iodine (Betadine 10% Soln) Confirm Administered Dose 1 ml .ROUTE .STK- MED ONE Stop: 06/13/17 11:01 Last Admin: 06/13/17 15:20 Dose: 20 ml Propofol (Diprivan 20 Ml) Confirm Administered Dose 200 mg .ROUTE .STK-MED ONE Stop: 06/13/17 14:28 Propofol (Diprivan 20 Ml) Confirm Administered Dose 200 mg .ROUTE .STK-MED ONE Stop: 06/13/17 15:04 Senna/Docusate Sodium (Senna Plus) 1 tab PO BID PRN PRN Reason: Constipation Last Admin: 06/14/17 07:36 Dose: 1 tab - Exam Quality Assessment: No: Supplemental Oxygen General: Alert, Oriented, Cooperative, No Acute Distress Neck: Supple Lungs: Normal Respiratory Effort GI/Abdominal Exam: Soft, No Distention Extremities: Pedal Edema (mild bilateral ankle edema) Skin: Warm, Dry Psy/Mental Status: Alert, Normal Affect - Problem List Review Problem List Initiated/Reviewed/Updated: Yes - My Orders Last 24 Hours: My Active Orders 06/18/17 05:00 CBC W/O DIFF,HEMOGRAM [HEME] Timed (1) - Plan Plan:: ASSESSMENT AND PLAN RIGHT HIP FRACTURE AROUND SURGICAL PROSTHESIS - she experienced a fall and suffered a zaid-prosthetic fracture. Stable since surgery with adequate pain control. -scheduled acetaminophen -As needed tramadol -Morphine for severe pain -Postop cares per Dr. Haas -saline lock IV ACUTE BLOOD LOSS ANEMIA - hemoglobin better today after transfusion yesterday. -Recheck hemoglobin in a.m. -Iron supplement twice daily ACUTE CYSTITIS - cx + for pseudomonas, tolerating ciprofloxacin. -change abx to ciprofloxacin BIDx5 days BILATERAL RENAL MASSES - CT urogram obtained during last admission, was consistent with bilateral renal cell carcinoma. On CT scan of the chest as well as CT of the abdomen there is no evidence of metastatic disease or lymph node enlargement. -Will need follow-up with urology after she has recovered from hip fracture MILD PARKINSON'S DISEASE - stable. 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 MAINTENANCE ISSUES -DVT prophylaxis; BID ASA -GI prophylaxis; not indicated -Cotter catheter; removed this morning -Nutrition; regular diet DISPOSITION - anticipate discharge to [facility] after the hospital stay, likely tomorrow if stable overnight Torey Brown MD
--- NOTE | 2017-06-17 13:46 | PCM.PN ---
- General Info Date of Service: 06/17/17 Functional Status: Reports: Pain Controlled, Tolerating Diet, Ambulating, Urinating - Patient Data Vitals - Most Recent: Last Vital Signs Temp 37.3 C 06/17/17 11:31 Pulse 84 06/17/17 11:31 Resp 16 06/17/17 11:31 BP 137/82 06/17/17 11:31 Pulse Ox 97 06/17/17 11:31 Weight - Most Recent: 141 lb 8.588 oz I&O - Last 24 Hours: Intake & Output 06/16/17 06/17/17 06/17/17 22:59 06:59 14:59 Intake Total 330 560 120 Output Total 690 870 175 Balance -360 310 -55 Lab Results Last 24 Hours: Laboratory Results - last 24 hr 06/16/17 06/17/17 Range/Units 04:56 05:39 WBC 7.5 (4.5-11.0) K/uL RBC 3.12 L (3.30-5.50) M/uL Hgb 9.1 L D (12.0-15.0) g/dL Hct 28.8 L (36.0-48.0) % MCV 92 (80-98) fL MCH 29 (27-31) pg MCHC 32 (32-36) % Plt Count 353 (150-400) K/uL Blood Type A POSITIVE Gel Antibody Screen Negative Crossmatch See Detail Med Orders - Current: Current Medications Acetaminophen (Tylenol Extra Strength) 1,000 mg PO TID [facility] Last Admin: 06/17/17 08:21 Dose: 1,000 mg Al Hydroxide/Mg Hydroxide (Mag-Al Plus) 30 ml PO Q4H PRN PRN Reason: Constipation Aspirin (Ecotrin) 325 mg PO BID [facility] Last Admin: 06/17/17 09:11 Dose: 325 mg Bisacodyl (Dulcolax) 10 mg PO DAILY PRN PRN Reason: Constipation Last Admin: 06/17/17 09:07 Dose: 10 mg Carbidopa/Levodopa (Sinemet 25-100 Mg) 1 tab PO TIDMEALS [facility] Last Admin: 06/17/17 12:07 Dose: 1 tab Ciprofloxacin (Ciprofloxacin Hcl) 500 mg PO Q12H [facility] Last Admin: 06/17/17 09:11 Dose: 500 mg Clonazepam (Klonopin) 0.5 mg PO BEDTIME [facility] Last Admin: 06/16/17 20:34 Dose: 0.5 mg Clonazepam (Klonopin) 1 mg PO QAM [facility] Last Admin: 06/17/17 08:18 Dose: 1 mg Diazepam (Valium) 2.5 mg IVPUSH Q6H PRN PRN Reason: Spasms Diphenhydramine HCl (Benadryl) 25 mg IVPUSH Q4H PRN PRN Reason: Itching Ketorolac Tromethamine (Toradol) 15 mg IVPUSH Q8H PRN PRN Reason: Pain Stop: 06/18/17 16:45 Last Admin: 06/14/17 20:36 Dose: 15 mg Magnesium Hydroxide (Milk Of Magnesia) 30 ml PO BID PRN PRN Reason: Constipation Last Admin: 06/14/17 14:36 Dose: 30 ml Melatonin (Melatonin) 9 mg PO BEDTIME [facility] Last Admin: 06/16/17 20:29 Dose: 9 mg Morphine Sulfate (Morphine) 2 mg IVPUSH Q2H PRN PRN Reason: Pain Last Admin: 06/13/17 18:46 Dose: 2 mg Ondansetron HCl (Zofran Odt) 4 mg PO Q6H PRN PRN Reason: Nausea able to take PO Polysaccharide Iron Complex (Ferrex 150 Forte) 1 cap PO BIDMEALS [facility] Last Admin: 06/17/17 09:03 Dose: 1 cap Senna (Senna) 8.6 mg PO BID PRN PRN Reason: Constipation Senna/Docusate Sodium (Senna Plus) 1 tab PO DAILY PRN PRN Reason: Constipation Sodium Chloride (Saline Flush) 10 ml FLUSH DAILY [facility] Last Admin: 06/17/17 09:09 Dose: 10 ml Tramadol HCl (Ultram) 50 mg PO Q8H PRN PRN Reason: Pain Last Admin: 06/15/17 17:35 Dose: 50 mg Discontinued Medications Acetaminophen (Tylenol) 650 mg PO NOW ONE Stop: 06/11/17 20:24 Last Admin: 06/11/17 20:34 Dose: 650 mg Hydrocodone Bitart/Acetaminophen ([place] 325-5 Mg) 1 - 2 tab PO Q4H PRN PRN Reason: Pain Last Admin: 06/14/17 18:45 Dose: 2 tab Bupivacaine HCl/Epinephrine Bitart (Marcaine 0.5%/Epinephrine 1:200,000) Confirm Administered Dose 50 ml .ROUTE .STK-MED ONE Stop: 06/12/17 10:00 Bupivacaine HCl/Epinephrine Bitart (Marcaine 0.5%/Epinephrine 1:200,000) Confirm Administered Dose 50 ml .ROUTE .STK-MED ONE Stop: 06/13/17 11:01 Last Admin: 06/13/17 15:19 Dose: 30 ml Clonazepam (Klonopin) 0.5 mg PO ONETIME ONE Stop: 06/11/17 22:50 Last Admin: 06/12/17 00:04 Dose: 0.5 mg Diazepam (Valium) 5 mg IVPUSH Q6H PRN PRN Reason: Spasms Docusate Sodium (Colace) 100 mg PO BID PRN PRN Reason: Constipation Ephedrine Sulfate (Ephedrine Sulfate) Confirm Administered Dose 50 mg .ROUTE .STK-MED ONE Stop: 06/13/17 14:29 Ephedrine Sulfate (Ephedrine Sulfate) Confirm Administered Dose 50 mg .ROUTE .STK-MED ONE Stop: 06/13/17 15:38 Fentanyl (Sublimaze) 50 mcg IVPUSH ONETIME ONE Stop: 06/11/17 18:35 Last Admin: 06/11/17 18:48 Dose: 50 mcg Fentanyl (Sublimaze) 50 mcg IVPUSH ONETIME ONE Stop: 06/11/17 20:24 Last Admin: 06/11/17 20:36 Dose: 50 mcg Fentanyl (Sublimaze) Confirm Administered Dose 100 mcg .ROUTE .STK-MED ONE Stop: 06/13/17 14:28 Furosemide (Lasix) 20 mg IVPUSH ONETIME ONE Stop: 06/16/17 12:01 Last Admin: 06/16/17 12:50 Dose: 20 mg Gentamicin Sulfate (Gentamicin) Confirm Administered Dose 240 mg .ROUTE .STK- MED ONE Stop: 06/12/17 10:00 Gentamicin Sulfate (Gentamicin) Confirm Administered Dose 80 mg .ROUTE .STK-MED ONE Stop: 06/12/17 10:01 Gentamicin Sulfate (Gentamicin) Confirm Administered Dose 240 mg .ROUTE .STK- MED ONE Stop: 06/13/17 11:01 Last Admin: 06/13/17 16:28 Dose: 240 mg Hydromorphone HCl (Dilaudid) 0.5 mg IVPUSH Q3H PRN PRN Reason: Pain (moderate 4-6) Last Admin: 06/14/17 09:32 Dose: 0.5 mg Sodium Chloride (Normal Saline) 1,000 [facility]ls [facility] Admin: 06/12/17 07:39 Dose: 125 mls/hr Ceftriaxone Sodium 1 gm/ (Sodium Chloride) 50 mls @ 100 mls/hr IV Q24H [facility] Last Admin: 06/14/17 13:46 Dose: 100 mls/hr Lactated Ringer's (Ringers, Lactated) 1,000 mls @ 125 mls/hr IV ASDIRECTED [facility] Last Admin: 06/14/17 05:21 Dose: 125 mls/hr Cefazolin Sodium 1 gm/ Sodium (Chloride) 50 mls @ 100 mls/hr IV Q8H [facility] Stop: 06/14/17 09:29 Last Admin: 06/14/17 00:16 Dose: 100 mls/hr Cefazolin Sodium/Dextrose 1 gm (/ Premix) 50 mls @ 100 mls/hr IV ONETIME ONE Stop: 06/14/17 08:59 Last Admin: 06/14/17 08:32 Dose: 100 mls/hr Lactated Ringer's (Ringers, Lactated) 1,000 mls @ [facility] Lactated Ringer's (Ringers, Lactated) 500 mls @ 500 mls/hr IV .BOLUS ONE Stop: 06/14/17 12:29 Last Admin: 06/14/17 11:22 Dose: 500 mls/hr Sodium Chloride (Normal Saline) 1,000 mls @ [facility] Last Admin: 06/15/17 08:58 Dose: 100 mls/hr Midazolam HCl (Versed 1 Mg/Ml) Confirm Administered Dose 2 mg .ROUTE .STK-MED ONE Stop: 06/13/17 14:28 Naloxone HCl (Narcan) 0.1 mg IVPUSH ONETIME PRN PRN Reason: Oversedation Stop: 06/13/17 16:46 Ondansetron HCl (Zofran) 8 mg IVPUSH Q4H PRN PRN Reason: Nausea/Vomiting Oxycodone/Acetaminophen (Percocet 325-5 Mg) 1 tab PO Q4H PRN PRN Reason: Pain Povidone Iodine (Betadine 10% Soln) Confirm Administered Dose 1 ml .ROUTE .STK- MED ONE Stop: 06/12/17 10:00 Povidone Iodine (Betadine 10% Soln) Confirm Administered Dose 1 ml .ROUTE .STK- MED ONE Stop: 06/13/17 11:01 Last Admin: 06/13/17 15:20 Dose: 20 ml Propofol (Diprivan 20 Ml) Confirm Administered Dose 200 mg .ROUTE .STK-MED ONE Stop: 06/13/17 14:28 Propofol (Diprivan 20 Ml) Confirm Administered Dose 200 mg .ROUTE .STK-MED ONE Stop: 06/13/17 15:04 Senna/Docusate Sodium (Senna Plus) 1 tab PO BID PRN PRN Reason: Constipation Last Admin: 06/14/17 07:36 Dose: 1 tab - Exam General: Alert, Oriented Extremities: Normal Inspection, No Pedal Edema, Normal Capillary Refill Peripheral Pulses: 2+: Dorsalis Pedis (L), Dorsalis Pedis (R) Skin: Warm, Dry, Intact Wound/Incisions: Healing Well, Dressing Dry and Intact Neurological: No New Focal Deficit - Problem List & Annotations (1) Femur fracture, right SNOMED Code(s): 83751424 Code(s): S72.91XA - UNSP FRACTURE OF RIGHT FEMUR, INIT FOR CLOS FX Status: Acute Current Visit: Yes - Problem List Review Problem List Initiated/Reviewed/Updated: Yes - Plan Plan:: ASSESSMENT AND PLAN RIGHT HIP FRACTURE AROUND SURGICAL PROSTHESIS - she experienced a fall and suffered a zaid-prosthetic fracture. Patient is doing much better today. She was given a platform walker to try with physical therapy yesterday. She did very well with it. Today she took quite a few steps more. Therapy says she is doing very well but needs continued strengthening. Dressing is clean dry and intact. Her pain is under control with oral pain medication. Patient is due to have a BM and was given stool softeners today. I do encourage the patient to go back to the [facility] after having a BM today. Patient and family informed me that they were not ready for her to go back to the [facility] today and that they would like continued therapy. I did instruct them with great detail regarding this. I did inform them that we send her to a rehabilitation facility for further strengthening. She is medically stable at this time and also surgically stable at this time. Patients family were not in agreement with this and would like to further discuss with Dr. Brown and physical therapy members. I did inform the patient that I will notify them and have them also discuss this with them. Patient will see me back in the clinic in 2 weeks for staple removal.
[2017-06-17] MEDS: Melatonin 3 MG Tab PO SCH (20:34)
[2017-06-17] MEDS: ClonazePAM 0.5 MG Tab PO SCH (20:50)
[2017-06-18 07:19] VITALS: BP 118/91
[2017-06-18] MEDS: Carbidopa/Levodopa 25-100 MG Tab PO SCH ×2 (08:00→11:28)
[2017-06-18] MEDS: Aspirin 325 MG Tab.EC PO SCH (08:00)
[2017-06-18] MEDS: Iron PS Complex & Vit B12/FA Cap PO SCH (08:00)
[2017-06-18] MEDS: Sodium Chloride 0.9% 10 ML Syringe FLUSH SCH (08:01)
[2017-06-18] MEDS: Acetaminophen 500 MG Tab PO SCH (08:03)
[2017-06-18] MEDS: ClonazePAM 1 MG Tab PO SCH (08:16)
[2017-06-18] MEDS: Ciprofloxacin 500 MG Tab PO SCH (09:33)
--- NOTE | 2017-06-18 10:48 | PCM.DCSUM1 ---
Discharge Summary - Hospital Course Brief History: 82 -year-old female with recent right hip fracture who presented with severe right hip pain after a fall. She was admitted for management of periprosthetic right hip fracture - Discharge Data Discharge Date: 06/18/17 Discharge Disposition: DC/Tfer to [facility] 03 Condition: Good - Discharge Diagnosis/Problem(s) (1) Femur fracture, right SNOMED Code(s): 77504739 ICD Code: S72.91XA - UNSP FRACTURE OF RIGHT FEMUR, INIT FOR CLOS FX Status : Acute Current Visit: Yes Qualifiers: Encounter type: initial encounter Femur location: unspecified portion of femur Fracture type: closed Fracture morphology: unspecified fracture morphology Qualified Code(s): S72.91XA - Unspecified fracture of right femur, initial encounter for closed fracture (2) Acute blood loss anemia SNOMED Code(s): 709026520 ICD Code: D62 - ACUTE POSTHEMORRHAGIC ANEMIA Status: Acute Current Visit : Yes (3) Parkinson disease SNOMED Code(s): 42760435 ICD Code: G20 - PARKINSON'S DISEASE Status: Chronic Current Visit: No (4) Guillain-Holton syndrome SNOMED Code(s): 28108960, 710609132 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 Status: Chronic Current Visit: No (5) Bilateral renal masses SNOMED Code(s): 356499276 ICD Code: N28.89 - OTHER SPECIFIED DISORDERS OF KIDNEY AND URETER Status: Chronic Current Visit: No (6) Acute cystitis with positive culture SNOMED Code(s): 781831286 ICD Code: N30.00 - ACUTE CYSTITIS WITHOUT HEMATURIA Status: Acute Current Visit: Yes - Patient Summary/Data Consults: Consultations 06/13/17 16:45 Consult to Physician [CONS] Routine Consulting Provider: Jamshid Gutierrez Call Completed to Consulting Physician: Yes OT Evaluation and Treatment [CONS] Routine Please Evaluate and Treat. OT Reason for Consult: Strengthening This query below is only for informational purposes and is not editable. Admission Diagnosis/Problem: Hip fracture requiring operative repair PT Evaluation and Treatment [CONS] Routine Please Evaluate and Treat. PT Reason for Consult: Strengthening This query below is only for informational purposes and is not editable. Admission Diagnosis/Problem: Hip fracture requiring operative repair Hospital Course: Mariama presented to the emergency room with severe right hip pain after a fall at the [facility] living. She had recently been admitted for management of a right hip fracture and had surgical repair. Workup in the emergency room revealed a periprosthetic fracture of her right hip. Workup was also suggestive of possible urinary tract infection. She was empirically started on antibiotics and admitted to the hospital for orthopedic consultation and additional surgical management. She was also noted to have a low hemoglobin at the time of admission and did require 2 units of blood to provide a safe hemoglobin level prior to surgery. She did receive 2 units of blood via transfusion without incident the morning after admission. On the second morning after admission she had surgical repair of her periprosthetic right hip fracture. The surgery was uneventful. Her postop course was complicated by significant somnolence and oversedation related to pain medications. We were able to hold medications and transition her to tramadol and scheduled acetaminophen with adequate pain control and a significant improvement in the oversedation. Her pain has been well-controlled utilizing scheduled acetaminophen as well as as needed tramadol. She does have an increase in pain with ambulation but this has been tolerable. She has been working with physical therapy and is mobilizing slowly but otherwise fairly well with the use of a platform walker. She is currently allowed to bear approximately 25% of her body weight on the right leg and this will be continued at least through her orthopedic clinic follow-up. The plan is for follow-up in 2 weeks for suture removal and repeat x-rays. As mentioned her urine sample was suggestive of infection and she was empirically started on ceftriaxone. On hospital day 3 her urine culture returned and was growing Pseudomonas. At this point antibiotics were changed to oral ciprofloxacin because she was not acutely ill with the infection. She will need 3 additional doses to complete a total of 5 days with her next dose due tonight. Also noted during the hospital stay was a further decline in her hemoglobin with no strong evidence for bleeding other than possibly a mild hematoma. She did require a second blood transfusion a couple of days prior to hospital discharge. Hemoglobin has been stable to improving since that time. Chronic medical conditions including Parkinson's disease and Guillain-Us are stable. - Patient Instructions Diet: Regular Diet as Tolerated Activity: Apply Ice, As Tolerated Activity, Other: 25 % weight bearing right leg with platform walker Driving: Do Not Drive Showering/Bathing: May Shower Wound/Incision Care: Keep Operative Site/Wound Site Clean and Dry, Change Dressing Daily Notify Provider of: Fever, Increased Pain, Swelling and Redness, Drainage, Nausea and/or Vomiting Other/Special Instructions: 1. You were in the hospital for management of a periprosthetic fracture of your right femur. This required surgical repair. I recommend subacute rehabilitation at a fpc facility. I would recommend physical and occupational therapy to help improve strength and function. Pain control will be with tramadol and acetaminophen. 2. Please follow-up with the orthopedic clinic as scheduled in 2 weeks. 3. You should be on aspirin 325 mg twice daily for 1 month. This will help prevent blood clots after your hip surgery. 4. Please seek medical attention if you develop fever greater than 101, have severe pain in your hip that is not controlled with current medications or you develop sudden onset of shortness of breath or chest pain. - Discharge Plan Prescriptions/Med Rec: Acetaminophen [Tylenol Extra Strength] 1,000 mg PO TID #90 tablet Aspirin [Ecotrin] 325 mg PO BID #60 tab.ec Ciprofloxacin [Ciprofloxacin HCl] 500 mg PO Q12H #3 tablet traMADol [Ultram] 50 mg PO Q6H PRN #90 tablet PRN Reason: Pain Home Medications: Home Meds Carbidopa/Levodopa [Carbidopa-Levodopa 25-100] 1 tab PO TIDMEALS 10/22/15 [ History] clonazePAM [Clonazepam] 0.5 mg PO BEDTIME 10/22/15 [History] clonazePAM [Clonazepam] 1 mg PO QAM 10/22/15 [History] Iron PS Complex & Vit B12/FA [Ferrex 150 Forte] 1 cap PO BIDMEALS #60 cap [Rx] Sennosides/Docusate Sodium [Senna Plus Tablet] 1 tab PO DAILY PRN 06/12/17 [ History] Aspirin [Ecotrin] 325 mg PO BID #60 tab.ec 06/17/17 [Rx] Acetaminophen [Tylenol Extra Strength] 1,000 mg PO TID #90 tablet 06/18/17 [Rx] Ciprofloxacin [Ciprofloxacin HCl] 500 mg PO Q12H #3 tablet 06/18/17 [Rx] traMADol [Ultram] 50 mg PO Q6H PRN #90 tablet 06/18/17 [Rx] Patient Handouts: Tramadol tablets, Hip Fracture Referrals: Amee Amato NP [Nurse Practitioner] - (2 week follow up) Carlos A Tuttle MD [Primary Care Provider] - (1-2 weeks - follow-up hospital stay for periprosthetic femur fracture) - Patient Data Vitals - Most Recent: Last Vital Signs Temp 37.3 C 06/18/17 07:15 Pulse 99 06/18/17 07:15 Resp 16 06/18/17 07:15 BP 118/91 H 06/18/17 07:15 Pulse Ox 96 06/18/17 07:15 Weight - Most Recent: 64.2 kg I&O - Last 24 hours: Intake & Output 06/17/17 06/18/17 06/18/17 22:59 06:59 14:59 Intake Total 500 240 240 Output Total 550 550 350 Balance -50 -310 -110 Lab Results - Last 24 hrs: Laboratory Results - last 24 hr 06/18/17 Range/Units 04:20 WBC 7.3 (4.5-11.0) K/uL RBC 3.37 (3.30-5.50) M/uL Hgb 9.7 L (12.0-15.0) g/dL Hct 31.1 L (36.0-48.0) % MCV 92 (80-98) fL MCH 29 (27-31) pg MCHC 31 L (32-36) % Plt Count 374 (150-400) K/uL Med Orders - Current: Current Medications Acetaminophen (Tylenol Extra Strength) 1,000 mg PO TID [facility] Last Admin: 06/18/17 08:03 Dose: 1,000 mg Al Hydroxide/Mg Hydroxide (Mag-Al Plus) 30 ml PO Q4H PRN PRN Reason: Constipation Aspirin (Ecotrin) 325 mg PO BID [facility] Last Admin: 06/18/17 08:00 Dose: 325 mg Bisacodyl (Dulcolax) 10 mg PO DAILY PRN PRN Reason: Constipation Last Admin: 06/17/17 09:07 Dose: 10 mg Carbidopa/Levodopa (Sinemet 25-100 Mg) 1 tab PO TIDMEALS [facility] Last Admin: 06/18/17 08:00 Dose: 1 tab Ciprofloxacin (Ciprofloxacin Hcl) 500 mg PO Q12H [facility] Last Admin: 06/18/17 09:33 Dose: 500 mg Clonazepam (Klonopin) 0.5 mg PO BEDTIME [facility] Last Admin: 06/17/17 20:50 Dose: 0.5 mg Clonazepam (Klonopin) 1 mg PO QAM [facility] Last Admin: 06/18/17 08:16 Dose: 1 mg Diazepam (Valium) 2.5 mg IVPUSH Q6H PRN PRN Reason: Spasms Diphenhydramine HCl (Benadryl) 25 mg IVPUSH Q4H PRN PRN Reason: Itching Ketorolac Tromethamine (Toradol) 15 mg IVPUSH Q8H PRN PRN Reason: Pain Stop: 06/18/17 16:45 Last Admin: 06/14/17 20:36 Dose: 15 mg Magnesium Hydroxide (Milk Of Magnesia) 30 ml PO BID PRN PRN Reason: Constipation Last Admin: 06/14/17 14:36 Dose: 30 ml Melatonin (Melatonin) 9 mg PO BEDTIME [facility] Last Admin: 06/17/17 20:34 Dose: 9 mg Morphine Sulfate (Morphine) 2 mg IVPUSH Q2H PRN PRN Reason: Pain Last Admin: 06/13/17 18:46 Dose: 2 mg Ondansetron HCl (Zofran Odt) 4 mg PO Q6H PRN PRN Reason: Nausea able to take PO Polysaccharide Iron Complex (Ferrex 150 Forte) 1 cap PO BIDMEALS [facility] Last Admin: 06/18/17 08:00 Dose: 1 cap Senna (Senna) 8.6 mg PO BID PRN PRN Reason: Constipation Senna/Docusate Sodium (Senna Plus) 1 tab PO DAILY PRN PRN Reason: Constipation Sodium Chloride (Saline Flush) 10 ml FLUSH DAILY [facility] Last Admin: 06/18/17 08:01 Dose: 10 ml Tramadol HCl (Ultram) 50 mg PO Q8H PRN PRN Reason: Pain Last Admin: 06/15/17 17:35 Dose: 50 mg Discontinued Medications Acetaminophen (Tylenol) 650 mg PO NOW ONE Stop: 06/11/17 20:24 Last Admin: 06/11/17 20:34 Dose: 650 mg Hydrocodone Bitart/Acetaminophen ([place] 325-5 Mg) 1 - 2 tab PO Q4H PRN PRN Reason: Pain Last Admin: 06/14/17 18:45 Dose: 2 tab Bupivacaine HCl/Epinephrine Bitart (Marcaine 0.5%/Epinephrine 1:200,000) Confirm Administered Dose 50 ml .ROUTE .STK-MED ONE Stop: 06/12/17 10:00 Bupivacaine HCl/Epinephrine Bitart (Marcaine 0.5%/Epinephrine 1:200,000) Confirm Administered Dose 50 ml .ROUTE .STK-MED ONE Stop: 06/13/17 11:01 Last Admin: 06/13/17 15:19 Dose: 30 ml Clonazepam (Klonopin) 0.5 mg PO ONETIME ONE Stop: 06/11/17 22:50 Last Admin: 06/12/17 00:04 Dose: 0.5 mg Diazepam (Valium) 5 mg IVPUSH Q6H PRN PRN Reason: Spasms Docusate Sodium (Colace) 100 mg PO BID PRN PRN Reason: Constipation Ephedrine Sulfate (Ephedrine Sulfate) Confirm Administered Dose 50 mg .ROUTE .STK-MED ONE Stop: 06/13/17 14:29 Ephedrine Sulfate (Ephedrine Sulfate) Confirm Administered Dose 50 mg .ROUTE .STK-MED ONE Stop: 06/13/17 15:38 Fentanyl (Sublimaze) 50 mcg IVPUSH ONETIME ONE Stop: 06/11/17 18:35 Last Admin: 06/11/17 18:48 Dose: 50 mcg Fentanyl (Sublimaze) 50 mcg IVPUSH ONETIME ONE Stop: 06/11/17 20:24 Last Admin: 06/11/17 20:36 Dose: 50 mcg Fentanyl (Sublimaze) Confirm Administered Dose 100 mcg .ROUTE .STK-MED ONE Stop: 06/13/17 14:28 Furosemide (Lasix) 20 mg IVPUSH ONETIME ONE Stop: 06/16/17 12:01 Last Admin: 06/16/17 12:50 Dose: 20 mg Gentamicin Sulfate (Gentamicin) Confirm Administered Dose 240 mg .ROUTE .STK- MED ONE Stop: 06/12/17 10:00 Gentamicin Sulfate (Gentamicin) Confirm Administered Dose 80 mg .ROUTE .STK-MED ONE Stop: 06/12/17 10:01 Gentamicin Sulfate (Gentamicin) Confirm Administered Dose 240 mg .ROUTE .STK- MED ONE Stop: 06/13/17 11:01 Last Admin: 06/13/17 16:28 Dose: 240 mg Hydromorphone HCl (Dilaudid) 0.5 mg IVPUSH Q3H PRN PRN Reason: Pain (moderate 4-6) Last Admin: 06/14/17 09:32 Dose: 0.5 mg Sodium Chloride (Normal Saline) 1,000 mls @ 125 mls[facility] Last Admin: 06/12/17 07:39 Dose: 125 mls/hr Ceftriaxone Sodium 1 gm/ (Sodium Chloride) 50 mls @ 100 mls/hr IV Q24H [facility] Last Admin: 06/14/17 13:46 Dose: 100 mls/hr Lactated Ringer's (Ringers, Lactated) 1,000 mls @ 125 mls/hr [facility] Last Admin: 06/14/17 05:21 Dose: 125 mls/hr Cefazolin Sodium 1 gm/ Sodium (Chloride) 50 mls @ 100 mls/hr IV Q8H [facility] Stop: 06/14/17 09:29 Last Admin: 06/14/17 00:16 Dose: 100 mls/hr Cefazolin Sodium/Dextrose 1 gm (/ Premix) 50 mls @ 100 mls/hr IV ONETIME ONE Stop: 06/14/17 08:59 Last Admin: 06/14/17 08:32 Dose: 100 mls/hr Lactated Ringer's (Ringers, Lactated) 1,000 mls [facility] Lactated Ringer's (Ringers, Lactated) 500 mls @ 500 mls/hr IV .BOLUS ONE Stop: 06/14/17 12:29 Last Admin: 06/14/17 11:22 Dose: 500 mls/hr Sodium Chloride (Normal Saline) 1,000 mls @ 100 mls[facility]hr [facility] Last Admin: 06/15/17 08:58 Dose: 100 mls/hr Midazolam HCl (Versed 1 Mg/Ml) Confirm Administered Dose 2 mg .ROUTE .STK-MED ONE Stop: 06/13/17 14:28 Naloxone HCl (Narcan) 0.1 mg IVPUSH ONETIME PRN PRN Reason: Oversedation Stop: 06/13/17 16:46 Ondansetron HCl (Zofran) 8 mg IVPUSH Q4H PRN PRN Reason: Nausea/Vomiting Oxycodone/Acetaminophen (Percocet 325-5 Mg) 1 tab PO Q4H PRN PRN Reason: Pain Povidone Iodine (Betadine 10% Soln) Confirm Administered Dose 1 ml .ROUTE .STK- MED ONE Stop: 06/12/17 10:00 Povidone Iodine (Betadine 10% Soln) Confirm Administered Dose 1 ml .ROUTE .STK- MED ONE Stop: 06/13/17 11:01 Last Admin: 06/13/17 15:20 Dose: 20 ml Propofol (Diprivan 20 Ml) Confirm Administered Dose 200 mg .ROUTE .STK-MED ONE Stop: 06/13/17 14:28 Propofol (Diprivan 20 Ml) Confirm Administered Dose 200 mg .ROUTE .STK-MED ONE Stop: 06/13/17 15:04 Senna/Docusate Sodium (Senna Plus) 1 tab PO BID PRN PRN Reason: Constipation Last Admin: 06/14/17 07:36 Dose: 1 tab *Q Meaningful Use (DIS) - VTE *Q VTE Criteria *Q: - Stroke *Q Stroke Criteria *Q: - AMI *Q AMI Criteria *Q:
== END 2017-06-18 12:30 | DRG 481 ==
LOC: JP.ED 17:10 → JP.MS 22:22
PROVIDERS: ADMIT Family Medicine; ATTEND Internal Medicine
PROC: 30233N1 Transfusion of Nonautologous Red Blood Cells into Peripheral Vein, Percutaneous Approach (ICD-10-PCS; principal; 2017-06-12)
PROC: 0QS604Z Reposition Right Upper Femur with Internal Fixation Device, Open Approach (ICD-10-PCS; 2017-06-13)
PROC: 30233N1 Transfusion of Nonautologous Red Blood Cells into Peripheral Vein, Percutaneous Approach (ICD-10-PCS; 2017-06-16)
DX: M97.01XA Periprosthetic fracture around internal prosthetic right hip joint, initial encounter (principal); N30.00 Acute cystitis without hematuria; D62 Acute posthemorrhagic anemia; G61.0 Guillain-Barre syndrome; M25.551 Pain in right hip; M25.561 Pain in right knee; B96.5 Pseudomonas (aeruginosa) (mallei) (pseudomallei) as the cause of diseases classified elsewhere; G20 Parkinson's disease; W19.XXXA Unspecified fall, initial encounter; Y92.129 Unspecified place in nursing home as the place of occurrence of the external cause; N28.89 Other specified disorders of kidney and ureter; F41.9 Anxiety disorder, unspecified; Z87.01 Personal history of pneumonia (recurrent); Z79.82 Long term (current) use of aspirin; Z88.8 Allergy status to other drugs, medicaments and biological substances
CPT/HCPCS: 73502 ×2; 73562 ×2; 81001; 87086; 87186; 96374; 96376; 99284; 99285; A9270; J3010 ×2; 36415; 36430; 80048; 80053; 82550; 83735; 85025; 85027; 86850; 86900; 86901; 86920; 86922; 87088; 94762; 97110-GP; 97116-GP; 97162-GP; 97165-GO; 97530-GP; C1713; J0690; J0696; J1170; J1580; J1885; J1940; J2250; J2270; J2704; J7040; J7050; J7120; P9016